=== PATIENT | male | born 1985 | race Caucasian/White ===

== ENCOUNTER → 2020-07-12 09:47 | Outpatient (BNVA) | payer OTHER, SELFPAY | PROVIDERS: PCP Nurse Practitioner Family; Referring Provider Nurse Practitioner Family; Visit Provider Dietitian, Registered | DX: Z76.89 Persons encountering health services in other specified circumstances (principal) ==

== ENCOUNTER → 2020-07-20 09:12 | Outpatient (BNVA) | payer OTHER, SELFPAY | PROVIDERS: PCP Nurse Practitioner Family; Visit Provider Nurse Practitioner Gerontology | DX: E11.65 Type 2 diabetes mellitus with hyperglycemia (principal); E11.29 Type 2 diabetes mellitus with other diabetic kidney complication; Z79.4 Long term (current) use of insulin; R80.9 Proteinuria, unspecified; E78.5 Hyperlipidemia, unspecified; E66.09 Other obesity due to excess calories; Z68.31 Body mass index [BMI] 31.0-31.9, adult | CPT/HCPCS: 99212 ==

== ENCOUNTER 2020-08-06 09:56 | Emergency (ER) | payer OTHER, SELFPAY ==
[2020-08-06 10:18] VITALS: BP 143/89; PULSE 89; RESP 18; TEMP 36.8; O2SAT 98; BMI 33.7
--- NOTE | 2020-08-06 10:43 | XR_ITS ---
EXAMINATION: XR SOFT TISSUE NECK CLINICAL INDICATION: Sensation of foreign body in throat infiltrate or chest. COMPARISON: None TECHNIQUE: 2 views of the soft tissue neck were obtained. FINDINGS: Soft tissue fullness is seen in the soft palate with narrowing of the oral canal at that level. The nasopharynx is patent. The prevertebral soft tissues are unremarkable. The epiglottis is unremarkable. The cervical soft tissues show no focal abnormality. The osseous structures are unremarkable. XR/XR soft tissue neck IMPRESSION: Soft tissue fullness of the soft palate with narrowing of the oral canal at that level. Correlate with physical exam. The airway is otherwise patent. No cervical soft tissue abnormality.
--- NOTE | 2020-08-06 10:43 | XR_ITS ---
EXAMINATION: XR CHEST CLINICAL INFORMATION: Sensation of foreign body in throat and bladder to chest. COMPARISON: 07/31/2008 chest radiographs. TECHNIQUE: 2 views of the chest were obtained. FINDINGS: No significant abnormality is noted involving the heart, lungs, mediastinum, bony thorax or soft tissues. XR/XR chest 2V IMPRESSION: No acute cardiopulmonary process.
[2020-08-06 10:52] LABS: MANUAL DIFF FLAG NO
[2020-08-06] MEDS: 0.9 % Sodium Chloride 1,000 ML 999 ML IVCONT (10:52)
[2020-08-06 10:55] LABS: Basophils Absolute Auto 0.1 X10*3/uL (0.0-0.2); Basophils Percent Auto 0.9 % (0-2); Eosinophils Absolute Auto 0.2 X10*3/uL (0.0-0.4); Eosinophils Percent Auto 2.7 % (0-4); Hematocrit 47.2 % (42-52); Hemoglobin 16.6 g/dl (14.0-18.0); Imm Gran Abs Auto 0.02 X10*3/uL (0.00-0.03); Imm Gran Pct Auto 0.3 % (0.0-0.4); Lymphocytes Absolute Auto 2.1 X10*3/uL (1.2-4.9); Lymphocytes Percent Auto 32.1 % (20-40); Mean Corpuscular HGB Conc 35.2 g/dl (31.0-36.0); Mean Corpuscular Volume 88.1 fL (80-98); Mean Platelet Volume 11.1 fL (9.4-12.4); Monocytes Absolute Auto 0.4 X10*3/uL (0.1-1.2); Monocytes Percent Auto 6.6 % (2-11); Neutrophils Absolute Auto 3.8 X10*3/uL (2.0-8.3); Neutrophils Percent Auto 57.4 % (45-73); Platelet Count 211 X10*3/uL (160-400); Red Blood Count 5.36 X10*6/uL (4.60-5.80); Red Cell Distribution Width 12.3 % (11.0-16.0); White Blood Count 6.7 X10*3/uL (4.8-10.8)
[2020-08-06 11:02] LABS: Prothrombin Time 11.6 SEC (10.8-13.0)
[2020-08-06 11:06] LABS: D Dimer < 200 NG/ML
[2020-08-06 11:26] LABS: Alanine Aminotransferase 56 U/L (0-40); Albumin Level 4.9 g/dL (3.5-5.0); Alkaline Phosphatase 117 U/L (39-117); Anion Gap 14 (12-20); Aspartate Amino Transferase 22 U/L (5-37); Bilirubin Direct 0.3 mg/dL (0.0-0.5); Bilirubin Total 0.9 mg/dL (0.0-1.0); Blood Urea Nitrogen 17 mg/dL (9-16); Calcium 9.1 mg/dL (8.4-10.2); Carbon Dioxide 24 mmol/L (22-29); Chloride 106 mmol/L (96-108); Creatinine Clr Calc Pharmacy 147.2; Estimated Glomerular Filt Rate > 60; Glucose Random 127 mg/dL (60-115); Magnesium 2.2 mg/dL (1.6-2.6); Sodium 140 mmol/L (135-145); Total Protein 7.9 g/dL (6.5-8.0)
[2020-08-06 11:31] LABS: Troponin-I High Sensitivity < 3.5 ng/L (<3.5-35.0)
--- NOTE | 2020-08-06 11:39 | CT_ITS ---
EXAMINATION: CT SOFT TISSUE NECK WITH CONTRAST CLINICAL INFORMATION: Foreign body sensation in throat. COMPARISON: None TECHNIQUE: Following the intravenous administration of 60 mL of Omnipaque 350 contrast, helical imaging was performed in the axial plane with generation of coronal and sagittal reformatted images. This CT examination was performed using dose optimization techniques as appropriate, variously including the following: *Automated exposure control *Adjustment of mA and/or kV according to patient size (this includes techniques or standardized protocols for targeted exams where dose is matched to indication/reason for exam; i.e. extremities or head) *Use of iterative reconstruction technique DLP: 1191 mGy-cm FINDINGS: No contour abnormality or pathologic enhancement is seen within the oral cavity or pharyngeal mucosal space. The larynx is normal. The thyroid gland is homogeneous. The airway is normally maintained. The submandibular and parotid glands appear normal bilaterally. No retropharyngeal fluid collection is seen. There is a reversal of the normal cervical lordosis with mild degenerative endplate spurring posteriorly at the C5-C6 level slightly impressing upon the ventral thecal sac. No pathologically enlarged cervical lymph nodes are seen. The carotid sheath vasculature opacifies normally. The visualized mediastinum is normal. Mild subsegmental atelectatic change is present in the lungs dependently. No maxillary or mandibular periapical disease is seen. Small retention cysts visible in the maxillary sinuses. There is a moderate leftward nasal septal deviation with nasal septal spurring distorting the left inferior turbinate and contacting the left lateral nasal wall. The mastoid air cells and middle ear cavities are aerated. The temporomandibular joints are normal. The craniovertebral junction appears normal. The imaged portions of the brain demonstrate no acute abnormality. The orbits appear normal. CT/CT soft tissue neck w con IMPRESSION: No soft tissue abnormality or adenopathy. No retropharyngeal process. Reversal of the normal cervical lordosis and mild spondylosis at C5-C6. Moderate leftward nasal septal deviation and nasal septal spurring contacting the left lateral nasal wall and distorting the left inferior turbinate.
--- NOTE | 2020-08-06 12:03 | ED_ITS ---
HPI - General Adult General Chief complaint: General Medical Stated complaint: ? FB IN THROAT Time Seen by Provider: 08/06/20 10:16 Source: patient Mode of arrival: ambulatory Limitations: no limitations History of Present Illness HPI narrative: 35yoM c PMHx of DM, HLD, GERD and lumbar disc disease presenting to the ED c c/o foreign body sensation in his throat since yesterday 09:00 or he describes it as a ?spasm?. Reports he feels it in his chest therefore is not sure if it is chest pain. 35yoM c PMHx of DM, HLD, GERD and lumbar disc disease presenting to the ED c c/o foreign body sensation in his throat since yesterday 09:00 or he describes it as a ?spasm?. Reports he feels it in his chest therefore is not sure if it is chest pain. Denies any other symptoms related to this. Reports he did not eat anything and this did not happen after he ate anything. Denies any fevers, nausea/vomiting, trouble swallowing or breathing, drooling, shortness of breath, paresthesias, abdominal pain, diarrhea or cons tipation or any other symptoms complaints or concerns at this time. Related Data Home Medications Medication Instructions Recorded Confirmed atorvastatin 40 mg tablet 40 mg PO DAILY 07/20/20 07/20/20 blood sugar diagnostic #10 ea 07/20/20 07/20/20 blood-glucose meter #1 ea 07/20/20 07/20/20 empagliflozin 25 mg tablet 25 mg PO DAILY 07/20/20 07/20/20 lancets 28 gauge #100 ea 07/20/20 07/20/20 lisinopril 2.5 mg tablet 2.5 mg PO DAILY 07/20/20 07/20/20 omeprazole 40 mg capsule,delayed 40 mg PO DAILY 07/20/20 07/20/20 release Previous Rx's Medication Instructions Recorded insulin glargine 100 unit/mL (3 26 unit SUBCUT DAILY #15 ml 07/20/20 mL) subcutaneous pen Allergies Allergy/AdvReac Type Severity Reaction Status Date / Time Sulfa (Sulfonamide Allergy Unknown HIVES Verified 07/20/20 09:22 Antibiotics) [SULFA (SULFONAMIDE ANTIBIOTICS)] Review of Systems Review of Systems: Constitutional : No Fever, No Chills, Fatigue, No Malaise ENT/Mouth : No Hearing loss, No Ear Pain, No Nasal Congestion, No Sinus Pain, No Hoarseness, No sore throat, No Rhinorrhea, No Swallowing Difficulty, + Discomfort with swallowing Eyes: No Eye Pain, No Swelling, No Redness, No Foreign Body, No Discharge, No Vision Changes Cardiovascular : ? CP, No SOB, no Dyspnea on Exertion, No Orthopnea, No Edema, No extremity swelling, No Palpitations Respiratory : No Cough, No Sputum, No Wheezing, No Dyspnea Gastrointestinal : No Nausea, No Vomiting, No Diarrhea, No abdominal Pain Genitourinary : No Dysuria Musculoskeletal : No joint pain Skin : No Skin Lesions, No rash Neuro : No Weakness, No Numbness, No Paresthesias, No Loss of Consciousness, No Dizziness, No Headache Heme/Lymph: No Lymphadenopathy Yes all other systems are reviewed and are negative [facility] Past Medical History Attestation statement: The following information was validated with the patient. Medical History GERD (gastroesophageal reflux disease) Hyperlipidemia LDL goal <100 Lumbar disc disease Obesity due to excess calories Proteinuria Type 2 diabetes mellitus with other diabetic kidney complication Surgical History No pertinent past surgical history Family History Family History Father CVD (cardiovascular disease) Diabetes mellitus Mother No problems noted. Sister No problems noted. Sister No problems noted. Son No problems noted. Daughter No problems noted. Daughter No problems noted. Social History Social History Household Members: Children Smoking Status: Former smoker Smoked in Last 30 Days: No Use of substances other than those prescribed or required for medical reasons: No Advance Directives: No Advance Directives Information Provided: No Physical Exam Vital Signs: Vital Signs: Last Vital Signs Temp 97.2 F 08/06/20 14:00 Pulse 80 08/06/20 14:00 Resp 16 08/06/20 14:00 BP 132/89 08/06/20 14:00 Pulse Ox 96 08/06/20 14:00 Body Mass Index 33.7 vital signs have been reviewed as normal and appeared to be correct. Blood pressure normal. Heart rate normal. Respiration rate normal. Temperature normal. Oxygen saturation normal. Appearance: Alert. Oriented X3. No acute distress. Head: Normal external exam. Normocephalic. Atraumatic. No Balderas signs noted. No raccoon eyes noted Eyes: PERRLA. EOMI. Conjunctiva and sclera normal. Eyelids normal. ENT: Pharynx normal. Uvula midline. Moist mucous membranes. Normal soft palate and hard palate. No trismus noted. No drooling noted. No muffled voice noted. No foreign bodies noted. Neck: Normal inspection. Neck supple. FROM. No adenopathy. Thyroid Normal. No meningeal signs. No neck mass noted. CVS: Normal heart rate and rhythm. Heart sound normal. No murmurs noted. Pulses normal throughout. Respiratory: No respiratory distress. Painless inspiration. Breath sounds normal. No wheezes/rales/rhonchi noted. Chest nontender. No accessory muscle usage noted or decreased air movement noted. Back: Full range of motion noted. Skin: Skin warm and dry. Normal skin color. Normal skin turgor. No rashes/lesions/lacerations noted. Extremities: Extremities exhibit normal range of motion. Extremities nontender. Neuro: Oriented X 3. No motor deficit. No sensory deficit. Reflexes normal. Course Course Course Narrative: 10:45am - 35yoM c PMHx of DM, HLD, GERD and lumbar disc disease presenting to the ED c c/o foreign body sensation in his throat since yesterday 09:00 or he describes it as a ?spasm?. Reports he feels it in his chest therefore is not sure if it is chest pain. - Concern for KS vs FB in throat - Plan: Labs, CXR, EKG, Soft tissue neck, ua. Provide IV fluids and re-ev aluate. Reevaluation(s) Reevaluation #1: All labs within normal limits including troponin and D-dimer. Chest x-ray within normal limits no acute processes noted. EKG normal sinus rhythm with PVCs no acute ischemic changes noted. Soft tissue neck x-ray revealed fullness of the soft plaque with narrowing of the oral canal at that level although on exam it does not appear this way therefore will obtain a CT scan of the neck soft tissue with IV contrast and re-evaluate. Time: 12:19 Reevaluation #2: CT scan of neck with IV contrast revealed IMPRESSION: No soft tissue abnormality or adenopathy. No retropharyngeal process. Reversal of the normal cervical lordosis and mild spondylosis at C5-C6. Moderate leftward nasal septal deviation and nasal septal spurring contacting the left lateral nasal wall and distorting the left inferior turbinate. - therefore will DC home at this time with referral to ENT and GI and instructions to return if any new or worsening symptoms. Patient understands agrees the plan. Time: 15:19 Medical Decision Making Lab Data Result diagrams: 08/06/20 10:46 08/06/20 10:46 Labs: Lab Results 08/06/20 08/06/20 08/06/20 Range/Units 10:46 10:46 10:46 WBC 6.7 (4.8-10.8) X10*3/uL RBC 5.36 (4.60-5.80) X10*6/uL Hgb 16.6 (14.0-18.0) g/dl Hct 47.2 (42-52) % MCV 88.1 (80-98) fL MCH 31.0 (27.0-33.0) pg MCHC 35.2 (31.0-36.0) g/dl RDW 12.3 (11.0-16.0) % Plt Count 211 (160-400) X10*3/uL MPV 11.1 (9.4-12.4) fL Immature Gran % (Auto) 0.3 (0.0-0.4) % Neut % (Auto) 57.4 (45-73) % Lymph % (Auto) 32.1 (20-40) % Wright % (Auto) 6.6 (2-11) % Eos % (Auto) 2.7 (0-4) % Baso % (Auto) 0.9 (0-2) % Lymph # (Auto) 2.1 (1.2-4.9) X10*3/uL Wright # (Auto) 0.4 (0.1-1.2) X10*3/uL Eos # (Auto) 0.2 (0.0-0.4) X10*3/uL Baso # (Auto) 0.1 (0.0-0.2) X10*3/uL Abs Immat Gran (auto) 0.02 (0.00-0.03) X10*3/uL Absolute Neuts (auto) 3.8 (2.0-8.3) X10*3/uL Absolute Nucleated RBC 0.000 (0.0-0.012) X10*3/uL Nucleated RBC % (auto) 0.0 (0.0-0.2) /100WBC PT 11.6 (10.8-13.0) SEC INR 1.0 (0.9-1.1) D-Dimer < 200 NG/ML Sodium 140 (135-145) mmol/L Potassium 4.0 (3.3-5.1) mmol/l Chloride 106 (96-108) mmol/L Carbon Dioxide 24 (22-29) mmol/L Anion Gap 14 (12-20) BUN 17 H (9-16) mg/dL Creatinine 0.79 (0.5-1.4) mg/dL Estim Creat Clear Calc 147.2 Estimated GFR > 60 Random Glucose 127 H (60-115) mg/dL Calcium 9.1 (8.4-10.2) mg/dL Magnesium 2.2 (1.6-2.6) mg/dL Total Bilirubin 0.9 (0.0-1.0) mg/dL Direct Bilirubin 0.3 (0.0-0.5) mg/dL AST 22 (5-37) U/L ALT 56 H (0-40) U/L Alkaline Phosphatase 117 (39-117) U/L Troponin I High Sens (<3.5-35.0) ng/L Total Protein 7.9 (6.5-8.0) g/dL Albumin 4.9 (3.5-5.0) g/dL Urine Color Urine Appearance Urine pH (5.0-8.0) Ur Specific [place] (1.005-1.025) Urine Protein (NEG-TRACE) MG/DL Urine Glucose (UA) (NEG) MG/DL Urine Ketones (NEG) MG/DL Urine Blood (NEG) Urine Nitrite (NEG) Ur Leukocyte Esterase (NEG) 08/06/20 08/06/20 Range/Units 10:46 15:03 WBC (4.8-10.8) X10*3/uL RBC (4.60-5.80) X10*6/uL Hgb (14.0-18.0) g/dl Hct (42-52) % MCV (80-98) fL MCH (27.0-33.0) pg MCHC (31.0-36.0) g/dl RDW (11.0-16.0) % Plt Count (160-400) X10*3/uL MPV (9.4-12.4) fL Immature Gran % (Auto) (0.0-0.4) % Neut % (Auto) (45-73) % Lymph % (Auto) (20-40) % Wright % (Auto) (2-11) % Eos % (Auto) (0-4) % Baso % (Auto) (0-2) % Lymph # (Auto) (1.2-4.9) X10*3/uL Wright # (Auto) (0.1-1.2) X10*3/uL Eos # (Auto) (0.0-0.4) X10*3/uL Baso # (Auto) (0.0-0.2) X10*3/uL Abs Immat Gran (auto) (0.00-0.03) X10*3/uL Absolute Neuts (auto) (2.0-8.3) X10*3/uL Absolute Nucleated RBC (0.0-0.012) X10*3/uL Nucleated RBC % (auto) (0.0-0.2) /100WBC PT (10.8-13.0) SEC INR (0.9-1.1) D-Dimer NG/ML Sodium (135-145) mmol/L Potassium (3.3-5.1) mmol/l Chloride (96-108) mmol/L Carbon Dioxide (22-29) mmol/L Anion Gap (12-20) BUN (9-16) mg/dL Creatinine (0.5-1.4) mg/dL Estim Creat Clear Calc Estimated GFR Random Glucose (60-115) mg/dL Calcium (8.4-10.2) mg/dL Magnesium (1.6-2.6) mg/dL Total Bilirubin (0.0-1.0) mg/dL Direct Bilirubin (0.0-0.5) mg/dL AST (5-37) U/L ALT (0-40) U/L Alkaline Phosphatase (39-117) U/L Troponin I High Sens < 3.5 (<3.5-35.0) ng/L Total Protein (6.5-8.0) g/dL Albumin (3.5-5.0) g/dL Urine Color YELLOW Urine Appearance CLEAR Urine pH 5.5 (5.0-8.0) Ur Specific [place] 1.010 (1.005-1.025) Urine Protein NEG (NEG-TRACE) MG/DL Urine Glucose (UA) >=1000 H (NEG) MG/DL Urine Ketones 15 (NEG) MG/DL Urine Blood NEG (NEG) Urine Nitrite NEG (NEG) Ur Leukocyte Esterase NEG (NEG) Imaging Data Chest x-ray: Attestation: I personally reviewed and interpreted this imaging study as follows: Radiologist's impression: IMPRESSION: No acute cardiopulmonary process. Soft tissue neck x-ray: Attestation: I personally reviewed and interpreted this imaging study as follows: Radiologist's impression: IMPRESSION: Soft tissue fullness of the soft palate with narrowing of the oral canal at that level. Correlate with physical exam. The airway is otherwise patent. No cervical soft tissue abnormality. Ct soft tissue neck : Attestation: I personally reviewed and interpreted this imaging study as follows: Radiologist's impression: IMPRESSION: No soft tissue abnormality or adenopathy. No retropharyngeal process. Reversal of the normal cervical lordosis and mild spondylosis at C5-C6. Moderate leftward nasal septal deviation and nasal septal spurring contacting the left lateral nasal wall and distorting the left inferior turbinate. ECG Data Attestation: I personally reviewed and interpreted this ECG as follows: Interpretation: Sinus rhythm with occasional PVCs with a normal SD interval normal QRS duration normal QT/QTC interval. No acute ischemic changes noted. No prior EKGs in system to compare at this time. Discharge Plan Discharge Clinical Impression: GERD (gastroesophageal reflux disease) Patient Disposition: Home, Self-Care Instructions: Gastroesophageal Reflux Disease (ED), Esophageal Spasm (ED) Prescriptions: No Action (DME) FreeStyle Lite Strips Strip See Rx Instructions strip .ROUTE .MEDSUPPLY Qty: 10 RF: 0 Jardiance 25 mg tablet 25 mg PO DAILY RF: 0 lisinopril 2.5 mg tablet 2.5 mg PO DAILY RF: 0 omeprazole 40 mg capsule,delayed release(DR/EC) 40 mg PO DAILY RF: 0 atorvastatin 40 mg tablet 40 mg PO DAILY RF: 0 (DME) blood-glucose meter Kit See Rx Instructions ea .ROUTE .MEDSUPPLY Qty: 1 RF: 0 (DME) lancets 28 gauge misc See Rx Instructions lancet topical TID Qty: 100 RF: 0 insulin glargine 100 unit/mL (3 mL) insulin pen 26 unit subcut DAILY Qty: 15 RF: 1 Referrals: Kee German, EKG MANAGER-BC [Primary Care Provider] - 2 days Luis Porras [Physician] - 2 days Venkat Velasco [Physician] - 2 days Stand Alone Forms: Work/School Release Print Language: Ukrainian
[2020-08-06 12:51] VITALS: BP 136/73; PULSE 82; RESP 16; O2SAT 96
--- NOTE | 2020-08-06 12:52 | PC.NURSE ---
pt able to drink OJ with no diff. swallowing. waiting CT scan.
[2020-08-06 14:00] VITALS: BP 132/89; PULSE 80; RESP 16; TEMP 36.2; O2SAT 96
[2020-08-06] MEDS: iohexoL 350 MG/ML 100 ML INFUS..BTL 60 ML IV (14:27)
[2020-08-06 15:15] LABS: Glucose Urine UA >=1000 MG/DL (NEG); Leukocyte Esterase Urine NEG (NEG); Nitrite Urine NEG (NEG); PH 5.5 (5.0-8.0); Urine Blood NEG (NEG); Urine Ketones 15 MG/DL (NEG); Urine Protein NEG (NEG-TRACE)
[2020-08-06 15:16] LABS: Color Urine YELLOW
[2020-08-06 15:17] LABS: Appearance Urine CLEAR
[2020-08-06 15:26] LABS: RBC Urine 0 /HPF (0); Squamous Epithelial Cell Urine TRACE /LPF; WBC Urine 0-2 /HPF (0-4)
== END 2020-08-06 15:27 | disposition home or self-care (01) ==
PROVIDERS: Physician Assistant Medical; Emergency Provider Emergency Medicine Emergency Medical Services; PCP Nurse Practitioner Family
DX: K21.9 Gastro-esophageal reflux disease without esophagitis (principal); R13.10 Dysphagia, unspecified; R09.89 Other specified symptoms and signs involving the circulatory and respiratory systems; E11.9 Type 2 diabetes mellitus without complications; Z87.891 Personal history of nicotine dependence; Z79.899 Other long term (current) drug therapy
CPT/HCPCS: 36415; 70360; 70491; 71046; 80048; 80076; 81001; 83735; 84484; 85025; 85379; 85610; 96360; 99284; Q9967

== ENCOUNTER → 2020-08-25 12:05 | Outpatient (BNVA) | payer OTHER, SELFPAY | PROVIDERS: PCP Nurse Practitioner Family; Visit Provider Dietitian, Registered | DX: Z76.89 Persons encountering health services in other specified circumstances (principal) ==

== ENCOUNTER 2020-09-01 09:48 | Outpatient (REF) | payer OTHER, SELFPAY ==
[2020-09-01 11:39] LABS: Estimated Average Glucose 189 mg/dL; Hemoglobin A1c % 8.2 %
== END 2020-09-01 09:49 | disposition home or self-care (01) ==
LOC: HO.HMGCLDS 09:48
PROVIDERS: PCP Nurse Practitioner Family; Visit Provider Nurse Practitioner Gerontology
DX: E11.65 Type 2 diabetes mellitus with hyperglycemia (principal)
CPT/HCPCS: 83036

== ENCOUNTER → 2020-10-20 08:14 | Outpatient (BNVA) | payer OTHER, SELFPAY | PROVIDERS: PCP Nurse Practitioner Family; Visit Provider Nurse Practitioner Gerontology ==

== ENCOUNTER → 2020-10-26 12:01 | Outpatient (BNVA) | payer OTHER, SELFPAY | PROVIDERS: PCP Nurse Practitioner Family; Visit Provider Dietitian, Registered ==

== ENCOUNTER → 2021-01-24 10:48 | Outpatient (BNVA) | payer OTHER, SELFPAY | PROVIDERS: PCP Nurse Practitioner Family; Visit Provider Dietitian, Registered | DX: E11.65 Type 2 diabetes mellitus with hyperglycemia (principal); Z79.4 Long term (current) use of insulin | CPT/HCPCS: 97803 ==

== ENCOUNTER → 2021-03-03 09:09 | Outpatient (BNVA) | payer OTHER, SELFPAY | PROVIDERS: PCP Nurse Practitioner Family; Visit Provider Nurse Practitioner Gerontology ==

== ENCOUNTER 2021-03-05 10:17 | Outpatient (REF) | payer OTHER, SELFPAY ==
[2021-03-05 11:50] LABS: Alanine Aminotransferase 37 U/L (0-40); Albumin Level 4.9 g/dL (3.5-5.0); Alkaline Phosphatase 133 U/L (39-117); Anion Gap 13 (12-20); Aspartate Amino Transferase 21 U/L (5-37); Bilirubin Total 0.7 mg/dL (0.0-1.0); Blood Urea Nitrogen 13 mg/dL (9-16); Calcium 9.8 mg/dL (8.4-10.2); Carbon Dioxide 27 mmol/L (22-29); Chloride 106 mmol/L (96-108); Cholesterol 126 mg/dL; Estimated Glomerular Filt Rate > 60; Glucose Fasting 173 mg/dL (60-99); HDL Cholesterol 29 mg/dL; LDL Cholesterol Calculated 79 mg/dl; Potassium 4.7 mmol/L (3.3-5.1); Sodium 141 mmol/L (135-145); Triglycerides 92 mg/dL
[2021-03-05 11:51] LABS: Creatinine Urine 56.53 mg/dL; Microalbum/Creatinine Ratio Ur 56.6 ug/mg cr
[2021-03-05 12:21] LABS: Estimated Average Glucose 192 mg/dL; Hemoglobin A1c % 8.3 %
[2021-03-06 06:37] LABS: LDL Cholesterol Direct 75 mg/dL (<100)
== END 2021-03-05 10:18 | disposition home or self-care (01) ==
LOC: HO.LAB 10:17
PROVIDERS: PCP Nurse Practitioner Family; Visit Provider Nurse Practitioner Gerontology
DX: E11.65 Type 2 diabetes mellitus with hyperglycemia (principal); Z79.4 Long term (current) use of insulin
CPT/HCPCS: 36415; 80053; 80061; 82043; 83036; 83721

== ENCOUNTER → 2021-05-23 09:02 | Outpatient (BNVA) | payer OTHER, SELFPAY | PROVIDERS: Visit Provider Nurse Practitioner Gerontology ==

== ENCOUNTER 2021-06-17 08:37 | Outpatient (REF) | payer OTHER, SELFPAY ==
[2021-06-17 10:11] LABS: Estimated Average Glucose 157 mg/dL; Hemoglobin A1c % 7.1 %
[2021-06-22 15:17] LABS: Alk.Phos Iso. Macrohepatic 0 % (<=0); Alk.Phos Isoenzymes Bone 28 % (28-66); Alk.Phos Isoenzymes Intest 12 % (1-24); Alk.Phos Isoenzymes Liver 61 % (25-69); Alk.Phos Isoenzymes Placental 0 % (<=0); Alk.Phos Isoenzymes Total 104 U/L (36-130)
== END 2021-06-17 08:38 | disposition home or self-care (01) ==
LOC: HO.LAB 08:37
PROVIDERS: PCP Nurse Practitioner Family; Visit Provider Nurse Practitioner Gerontology
DX: E11.65 Type 2 diabetes mellitus with hyperglycemia (principal); R74.8 Abnormal levels of other serum enzymes; Z79.4 Long term (current) use of insulin
CPT/HCPCS: 36415; 83036; 84080

== ENCOUNTER → 2021-07-07 08:59 | Outpatient (BNVA) | payer OTHER, SELFPAY | PROVIDERS: PCP Nurse Practitioner Family; Visit Provider Internal Medicine | DX: G47.33 Obstructive sleep apnea (adult) (pediatric) (principal); E66.09 Other obesity due to excess calories; Z68.31 Body mass index [BMI] 31.0-31.9, adult | CPT/HCPCS: 99202 ==

== ENCOUNTER → 2021-08-03 15:50 | Outpatient (REF) | payer OTHER, SELFPAY | LOC: HO.SL 15:50 | PROVIDERS: PCP Nurse Practitioner Family; Visit Provider Internal Medicine | DX: G47.33 Obstructive sleep apnea (adult) (pediatric) (principal); E66.09 Other obesity due to excess calories; Z68.31 Body mass index [BMI] 31.0-31.9, adult | CPT/HCPCS: 95806 ==

== ENCOUNTER → 2021-08-22 14:53 | Outpatient (BNVA) | payer OTHER, SELFPAY | PROVIDERS: PCP Nurse Practitioner Family; Visit Provider Internal Medicine | DX: G47.33 Obstructive sleep apnea (adult) (pediatric) (principal) | CPT/HCPCS: 99212 ==

== ENCOUNTER → 2021-09-26 10:57 | Outpatient (BNVA) | payer OTHER, SELFPAY | PROVIDERS: PCP Nurse Practitioner Family; Visit Provider Nurse Practitioner Gerontology | DX: E11.65 Type 2 diabetes mellitus with hyperglycemia (principal); E11.29 Type 2 diabetes mellitus with other diabetic kidney complication; E78.5 Hyperlipidemia, unspecified; E66.09 Other obesity due to excess calories; R80.9 Proteinuria, unspecified; Z79.4 Long term (current) use of insulin; Z68.31 Body mass index [BMI] 31.0-31.9, adult | CPT/HCPCS: 82947; 83036; 99212 ==

== ENCOUNTER 2022-12-11 08:06 | Outpatient (REF) | payer OTHER, SELFPAY ==
--- NOTE | ~2022-12-11 | XR_ITS ---
EXAMINATION: XR HUMERUS, RIGHT CLINICAL INFORMATION: Unspecified fracture humeral shaft COMPARISON: None available. TECHNIQUE: AP and lateral views of the right humerus. FINDINGS: No acute fracture or malalignment is seen of the humerus. No suspicious bony lesions seen. Articulation at the elbow and shoulder joint appears maintained. No abnormal soft tissue calcification. XR/XR humerus RT IMPRESSION: No radiographic evidence of acute fracture or dislocation.
== END 2022-12-11 08:07 | disposition home or self-care (01) ==
LOC: HO.HOSX 08:06
PROVIDERS: Visit Provider Physician Assistant
DX: S42.301A Unspecified fracture of shaft of humerus, right arm, initial encounter for closed fracture (principal); M77.11 Lateral epicondylitis, right elbow; G56.21 Lesion of ulnar nerve, right upper limb
CPT/HCPCS: 20550; 20610; 73060; 99202; J1100

== ENCOUNTER 2022-12-29 14:40 | Outpatient (RCR) | payer OTHER, SELFPAY ==
--- NOTE | 2022-12-29 16:18 | MHC.OT.DC ---
[address] [phone] F: [phone] Occupational Therapy Discharge Note Patient Name: Alexis Gutierrezatt Provider: Mery Mi Diagnosis: Right elbow lateral epicondylitis Right elbow cubital tunnel syndrom Date of Surgery: Date of Evaluation: 12/29/22 Date of Discharge: 12/29/22 Treatments to Date: 1 Cancellations to Date: No Shows to Date: Discharge Status: Improved Function Independent with HEP Discharge Summary: Pt is a 37 yo male s/p right elbow injury with a slight fracture resulting in elbow pain and ulnar nerve symptoms. Pain has improved significantly to a 3/10 at worst with avoiding heavy use and hand paresthesia now resolved. 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 Pt has a scheduled appointment with his PCP in February. Skilled OT not recommended at this time. Electronically Signed By: Liana Treadwell OT CHT CLT Reviewed/agree with student documentation: Therapist: Please Sign and return to therapist, thank you for your referral.
== END 2022-12-29 16:18 | disposition home or self-care (01) ==
LOC: HO.OT 14:40
PROVIDERS: PCP Nurse Practitioner Family; Visit Provider Physician Assistant
DX: M17.12 Unilateral primary osteoarthritis, left knee (principal); G56.21 Lesion of ulnar nerve, right upper limb
CPT/HCPCS: 97110; 97165

== ENCOUNTER 2023-03-08 09:16 | Outpatient (REF) | payer OTHER, SELFPAY ==
[2023-03-08 11:14] LABS: MANUAL DIFF FLAG NO
[2023-03-08 11:16] LABS: Basophils Absolute Auto 0.1 X10*3/uL (0.0-0.2); Basophils Percent Auto 1.2 % (0-2); Eosinophils Absolute Auto 0.3 X10*3/uL (0.0-0.4); Eosinophils Percent Auto 3.6 % (0-4); Hematocrit 48.9 % (42.0-52.0); Hemoglobin 16.3 g/dl (14.0-18.0); Imm Gran Abs Auto 0.03 X10*3/uL (0.00-0.03); Imm Gran Pct Auto 0.4 % (0.0-0.4); Lymphocytes Absolute Auto 2.6 X10*3/uL (1.2-4.9); Lymphocytes Percent Auto 35.6 % (20-40); Mean Corpuscular HGB Conc 33.3 g/dl (31.0-36.0); Mean Corpuscular Hemoglobin 29.6 pg (27.0-33.0); Mean Corpuscular Volume 88.9 fL (80.0-98.0); Mean Platelet Volume 11.4 fL (9.4-12.4); Monocytes Absolute Auto 0.6 X10*3/uL (0.1-1.2); Neutrophils Absolute Auto 3.8 x10*3/uL (2.0-8.3); Neutrophils Percent Auto 51.2 % (45-73); Platelet Count 245 X10*3/uL (160-400); Red Cell Distribution Width 12.2 % (11.0-16.0); White Blood Count 7.4 X10*3/uL (4.8-10.8)
[2023-03-08 11:19] LABS: Appearance Urine Clear; Color Urine Yellow; Glucose Urine UA >=1000 mg/dL (Negative); Leukocyte Esterase Urine Negative (Negative); Nitrite Urine Negative (Negative); PH 5.5 (5.0-9.0); Specific Gravity - Urine >= 1.030 (1.005-1.025); UMIC TRIGGER UACC YES; Urine Blood Negative (Negative); Urine Ketones Negative (Negative); Urine Protein Negative (Neg-Trace)
[2023-03-08 11:22] LABS: Bacteria Urine None Seen (None Seen); Hyaline Casts Urine 0-2 /LPF (0-2); RBC Urine 0-2 /HPF (0-2); Squamous Epithelial Cell Urine 0-2 /HPF (0-2); WBC Urine 0-5 /HPF (0-5)
[2023-03-08 11:33] LABS: Alanine Aminotransferase 35 U/L (0-40); Albumin Level 4.8 g/dL (3.5-5.0); Alkaline Phosphatase 123 U/L (39-117); Anion Gap 12 (12-20); Aspartate Amino Transferase 16 U/L (5-37); Bilirubin Total 1.2 mg/dL (0.0-1.0); Blood Urea Nitrogen 14 mg/dL (9-16); Calcium 10.4 mg/dL (8.4-10.2); Carbon Dioxide 28 mmol/L (22-29); Chloride 105 mmol/L (96-108); Cholesterol 164 mg/dL; Estimated Glomerular Filt Rate > 60; Glucose Fasting 173 mg/dL (60-99); HDL Cholesterol 32 mg/dL; LDL Cholesterol Calculated 102 mg/dl; Potassium 4.2 mmol/L (3.3-5.1); Sodium 141 mmol/L (135-145); Total Protein 8.4 g/dL (6.5-8.0); Triglycerides 151 mg/dL
[2023-03-08 11:52] LABS: TSH reflex Free T4 1.08 uIU/mL (0.32-4.0)
[2023-03-08 12:06] LABS: Creatinine Urine 52.92 mg/dL; Microalbum/Creatinine Ratio Ur 115.2 ug/mg cr
== END 2023-03-08 09:17 | disposition home or self-care (01) ==
LOC: HO.HMGCLDS 09:16
PROVIDERS: PCP Nurse Practitioner Family; Visit Provider Nurse Practitioner Family
DX: E11.65 Type 2 diabetes mellitus with hyperglycemia (principal)
CPT/HCPCS: 36415; 80053; 80061; 81001; 82043; 84443; 85025

== ENCOUNTER 2023-04-16 12:41 | Outpatient (REF) | payer OTHER, SELFPAY ==
[2023-04-16 16:42] LABS: Appearance Urine Clear; Color Urine Yellow; Glucose Urine UA >=1000 mg/dL (Negative); Leukocyte Esterase Urine Negative (Negative); Nitrite Urine Negative (Negative); PH 5.5 (5.0-9.0); Specific Gravity - Urine >= 1.030 (1.005-1.025); UMIC TRIGGER UACC YES; Urine Blood Negative (Negative); Urine Ketones Negative (Negative); Urine Protein Negative (Neg-Trace)
[2023-04-16 16:48] LABS: Bacteria Urine None Seen (None Seen); Hyaline Casts Urine 0-2 /LPF (0-2); RBC Urine 0-2 /HPF (0-2); Squamous Epithelial Cell Urine 0-2 /HPF (0-2); WBC Urine 0-5 /HPF (0-5)
[2023-04-16 17:09] LABS: Gamma Glutamyl Transpeptidase 37 U/L (11-51)
[2023-04-16 17:25] LABS: Vitamin D 25-OH Total 51.2 ng/mL (>30)
[2023-04-18 13:48] LABS: Calcium (PTHI) 9.8 mg/dL (8.6-10.3); PTHI 66 pg/mL (16-77)
[2023-04-19 15:54] LABS: Calcium, Ionized 5.1 mg/dL (4.7-5.5)
[2023-04-24 22:48] LABS: Alk.Phos Iso. Macrohepatic 0 % (<=0); Alk.Phos Isoenzymes Bone 23 % (28-66); Alk.Phos Isoenzymes Intest 9 % (1-24); Alk.Phos Isoenzymes Liver 67 % (25-69); Alk.Phos Isoenzymes Placental 0 % (<=0); Alk.Phos Isoenzymes Total 108 U/L (36-130)
== END 2023-04-16 12:42 | disposition home or self-care (01) ==
LOC: HO.HMGCLDS 12:41
PROVIDERS: PCP Nurse Practitioner Family; Visit Provider Nurse Practitioner Family
DX: R74.8 Abnormal levels of other serum enzymes (principal); E83.52 Hypercalcemia; E11.65 Type 2 diabetes mellitus with hyperglycemia
CPT/HCPCS: 36415; 81001; 82306; 82330; 82977; 83970; 84080

== ENCOUNTER 2023-07-02 12:45 | Outpatient (AMB) | payer OTHER, SELFPAY ==
--- NOTE | 2023-07-02 12:55 | A.OFFPC_ITS ---
Vital Signs 07/02/23 12:59 07/02/23 13:44 Height 5 ft 8 in Weight 247 lb BMI 37.6 BP 140/88 H 120/88 Blood Pressure Location Rt brachial Rt brachial Position Sitting Sitting Pulse 102 H Pulse Source Pulse Oximeter Pulse Oximetry (%) 96 Oxygen Delivery Method Room Air Intake Visit Reasons: 4 month follow up Allergies Sulfa (Sulfonamide Antibiotics) [SULFA (SULFONAMIDE ANTIBIOTICS)] Allergy (Unknown, Verified 07/02/23 12:59) HIVES Medication List - Last Reconciled 07/02/23 by LEONILA Herrera atorvastatin 40 mg PO DAILY blood sugar diagnostic TID testing, FREESTYLE LITE STRIPS blood-glucose meter (FreeStyle Lite Meter kit) As directed 3 x/day blood-glucose meter As directed empagliflozin (Jardiance) 25 mg PO DAILY insulin glargine (Lantus Solostar U-100 Insulin) 48 units (0.48 mL) subcut DAILY lancets As directed lisinopril 10 mg PO DAILY 90 days metformin 500 mg PO BID omeprazole 40 mg PO DAILY semaglutide (Ozempic) 0.25 mg (0.368 mL) subcut QWEEK Tobacco use date assessed: 03/08/23 HPI 4 month follow up HPI Details Pt is a diabetic, on an KASEY and a statin. A1C in office today is 8.4. Microalbumin is up to date. Denies polyuria, polydipsia, and neuropathy. Pt denies any signs and symptoms of hypoglycemia and does know how to correct it. Will increase lantus from 45 to 50 units and ozempic from 0.25mg to 0.5mg. Pt knows to work on his diet. Will give flu vaccine today, pt will have pneumonia vaccine at his next visit. [facility] Medical History Obstructive sleep apnea syndrome Elevated alkaline phosphatase level GERD (gastroesophageal reflux disease) Lumbar disc disease Proteinuria Type 2 diabetes mellitus with other diabetic kidney complication Hyperlipidemia LDL goal <100 Obesity due to excess calories Surgical History Hx of removal of cyst Family History Father CVD (cardiovascular disease) Diabetes mellitus Mother Mental health disorder Sister Substance use disorder Sister No problems noted. Son No problems noted. Daughter No problems noted. Daughter No problems noted. Social History Household Members: Children Housing: House Alcohol intake: current Alcohol intake frequency: does not drink Patient Tobacco Use Status: Former Tobacco user e-Cigarette/Vaping Use: Never Used Second Hand Smoke Exposure: No Substance Use Type: Marijuana service: No Current occupational status: employed Current occupation: [employer] Current occupational exposures/hazards: No Cognitive needs: No Hearing needs: No Vision needs: No Questionnaire Thrive Questionnaire Date Thrive assessed: 12/04/22 I am a: Patient What is your living situation today?: I have a steady place to live Within the past 12 months, did the food you bought not last and you didn't have the money to get more?: Never true Within the past 12 months, did you worry whether your food would run out before you got money to buy more?: Never true Please select the resources that you would like help with: None AUDIT C Alcohol Use Questionnaire (AUDIT-C) 1. How often do you have a drink containing alcohol?: 2-4 times a month 2. How many drinks containing alcohol do you have on a typical day when you are drinking?: 5 or 6 3. How often do you have six or more drinks on one occasion?: Monthly Total Score: 6 RAY-7 AMB Questionnaire RAY-7 Date RAY - 7 assessed: 12/04/22 Feeling nervous, anxious, or on edge: 0 = Not at all Not being able to stop or control worryin = Not at all Worrying too much about different things: 0 = Not at all Trouble relaxin = Not at all Being so restless that it is hard to sit still: 0 = Not at all Becoming easily annoyed or irritable: 0 = Not at all Feeling afraid as if something awful might happen: 0 = Not at all Total RAY-7 score (0-4 normal; 5-9 mild; 10-14 moderate; 15-21 severe): 0 Source: Developed by Drs. Venkat Hilliard, Sallie Murphy, Jarett Alvarado and colleagues, with an educational ailyn from [employer]. Review of Systems Const Reports as per HPI Physical exam (Primary Care) Vital Signs: Last Vital Signs Pulse 102 H 07/02/23 12:59 BP 120/88 07/02/23 13:44 Pulse Ox 96 07/02/23 12:59 Oxygen Delivery Method Room Air 07/02/23 12:59 BMI result Body Mass Index 37.6 Tobacco/Smoking Status: Tobacco use Status Tobacco use date assessed 03/08/23 07/02/23 13:00 Patient Tobacco Use Status Former Tobacco user 07/02/23 13:00 e-Cigarette/Vaping Use Never Used 07/02/23 13:00 Thrive Assessment: Date of Thrive Assessment Date Thrive assessed 12/04/22 07/02/23 13:00 Const General: cooperative Nutritional Appearance: obese Orientation/consciousness: patient oriented x3 Resp Effort & Inspection: normal respiratory effort Auscultation: clear to auscultation bilaterally Cardio Rate: regular rate Rhythm: regular rhythm Heart sounds: S1 normal heart sound present and S2 normal heart sound present Neuro General: patient oriented x3 Psych Appearance: grossly normal Mental Status: mental status grossly normal Speech and movement: Normal speech and movement present Affect: normal affect Attitude: cooperative Thought process: Normal thought process present Thought content: Normal thought content present Insight: Good insight present (Psych) Judgement: Good judgement present (Psych) Office Procedures Flu Questionnaire Does the patient have a severe egg allergy?: No Does the patient have severe life threatening allergies?: No Does the patient have a fever or illness today?: No Has the patient ever had Guillain-[place] Syndrome?: No Has the patient ever had any past reaction to a flu shot?: No Immunizations flu vacc [id number] 6mos up(PF) 60 mcg(15 mcgx4)/0.5 mL IM syringe Performing Provider: LEONILA Herrera [place]forming Location: [facility] [place] [facility] [place] [facility] Administered by: Nahid Odonnell CMA on 07/02/23 13:50 Dose Route Admin Location Dispensed Lot Number Expiration Date NDC Meter Repairer 0.5 mL IM Right Deltoid 0.5 mL [id number] 03/09/24 [id number] [employer] VIS Given Date VIS Provided VIS Publication Date 07/02/23 Single Vaccine 21 Eligibility Eligibility Date Funding Source Not VFC Eligible 07/02/23 Private Assessment and Plan Assessment & Plan (1) Type 2 diabetes mellitus with hyperglycemia: Code(s): E11.65 - Type 2 diabetes mellitus with hyperglycemia Qualifiers: Diabetes mellitus fdc insulin use: with fdc use Qualified Code(s): E11.65 - Type 2 diabetes mellitus with hyperglycemia; Z79.4 - MCFP (current) use of insulin (2) HTN (hypertension): Code(s): I10 - Essential (primary) hypertension Plan: pt will take at home Plan The patient agreed to the use of a medical receptionist assistant for this encounter. Scribed for JIA Finley- by iJe Linder medical receptionist assistant, on 07/02/2023 at 13:10 EST Orders: Orders AMB Hemoglobin A1c Today Z13.9 - Encounter for screening, unspecified Influenza [id number] Immunization Today Z23 - Encounter for immunization Medications: Changed From insulin glargine (Lantus Solostar U-100 Insulin) 45 units (0.45 mL) subcut DAILY 45 mL 1RF E11.65 - Type 2 diabetes mellitus with hyperglycemia To insulin glargine (Lantus Solostar U-100 Insulin) 48 units (0.48 mL) subcut DAILY 45 mL 3RF E11.65 - Type 2 diabetes mellitus with hyperglycemia From semaglutide (Ozempic) 0.25 mg (0.368 mL) subcut QWEEK 6 mL 1RF E11.29 - Type 2 diabetes mellitus with other diabetic kidney complication To semaglutide (Ozempic) 0.5 mg (0.736 mL) subcut QWEEK 6 mL 1RF E11.29 - Type 2 diabetes mellitus with other diabetic kidney complication From insulin glargine (Lantus Solostar U-100 Insulin) 48 units (0.48 mL) subcut DAILY 45 mL 3RF E11.65 - Type 2 diabetes mellitus with hyperglycemia To insulin glargine (Lantus Solostar U-100 Insulin) 50 units (0.5 mL) subcut DAILY 45 mL 3RF E11.65 - Type 2 diabetes mellitus with hyperglycemia Refilled metformin 500 mg PO BID 180 tabs 1RF E11.65 - Type 2 diabetes mellitus with hyperglycemia, 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
[2023-07-02 12:59] VITALS: BP 140/88; PULSE 102; O2SAT 96; BMI 37.6
[2023-07-02 13:44] VITALS: BP 120/88
== END 2023-07-02 14:51 | disposition home or self-care (01) ==
PROVIDERS: PCP Nurse Practitioner Family; Visit Provider Nurse Practitioner Family
DX: E11.65 Type 2 diabetes mellitus with hyperglycemia (principal); Z79.4 Long term (current) use of insulin; I10 Essential (primary) hypertension; Z23 Encounter for immunization
CPT/HCPCS: 83036; 90471; 90686; 99213

== ENCOUNTER 2023-12-05 07:25 | Outpatient (AMB) | payer OTHER, SELFPAY ==
--- NOTE | 2023-12-05 07:40 | MHC.PC.OV ---
Vital Signs 12/05/23 07:47 Height 5 ft 8 in Weight 245 lb BMI 37.2 BP 138/82 Blood Pressure Location Lt brachial Position Sitting Pulse 90 Pulse Source Pulse Oximeter Pulse Oximetry (%) 96 Oxygen Delivery Method Room Air Intake Visit Reasons: PE Intake Note: Pt is here today for his PE Allergies Sulfa (Sulfonamide Antibiotics) [SULFA (SULFONAMIDE ANTIBIOTICS)] Allergy (Unknown, Verified 12/05/23 08:12) HIVES Medication List - Last Reconciled 12/05/23 by LEONILA Herrera atorvastatin 40 mg PO DAILY blood sugar diagnostic TID testing, FREESTYLE LITE STRIPS blood-glucose meter (FreeStyle Lite Meter kit) As directed 3 x/day blood-glucose meter As directed empagliflozin (Jardiance) 25 mg PO DAILY insulin glargine (Lantus Solostar U-100 Insulin) 62 units (0.62 mL) subcut DAILY lancets As directed lisinopril 10 mg PO DAILY 90 days metformin 500 mg PO BID omeprazole 40 mg PO DAILY semaglutide 1 mg (0.75 mL) subcut QWEEK 30 days sildenafil 25 mg PO DAILY PRN Tobacco use date assessed: 12/05/23 Dental Screening Dental Screen Date: 12/05/23 Did you have a dental visit in the last 12 months?: No Was dental information given to patient?: No HPI PE HPI Details Pt is here for a PE. Will order labs. Pt is a diabetic, on an KASEY and a statin. A1C in office today is 8.0. Microalbumin is up to date. Denies polyuria, polydipsia, and neuropathy. Pt denies any signs and symptoms of hypoglycemia and does know how to correct it. Pt reports that his blood sugar has been ranging from 80s-130s for the last month. He has been taking 62 units of lantus. Pt has eczema patches to his medial and lateral dorsal feet. Will send betamethasone. He will purchase diabetic foot cream. [facility] Medical History Obstructive sleep apnea syndrome Elevated alkaline phosphatase level GERD (gastroesophageal reflux disease) Lumbar disc disease Proteinuria Type 2 diabetes mellitus with other diabetic kidney complication Hyperlipidemia LDL goal <100 Obesity due to excess calories Surgical History Hx of removal of cyst Family History Father CVD (cardiovascular disease) Diabetes mellitus Mother Mental health disorder Sister Substance use disorder Sister No problems noted. Son No problems noted. Daughter No problems noted. Daughter No problems noted. Social History Household Members: Children Housing: House Alcohol intake: current Alcohol intake frequency: does not drink Patient Tobacco Use Status: Former Tobacco user e-Cigarette/Vaping Use: Never Used Second Hand Smoke Exposure: No Substance Use Type: Marijuana service: No Current occupational status: employed Current occupation: [employer] Current occupational exposures/hazards: No Cognitive needs: No Hearing needs: No Vision needs: No Questionnaire Thrive Questionnaire Date Thrive assessed: 12/04/22 I am a: Patient What is your living situation today?: I have a steady place to live Within the past 12 months, did the food you bought not last and you didn't have the money to get more?: Never true Within the past 12 months, did you worry whether your food would run out before you got money to buy more?: Never true Please select the resources that you would like help with: None THRIVE Score: 0 AUDIT C Alcohol Use Questionnaire (AUDIT-C) 1. How often do you have a drink containing alcohol?: 2-4 times a month 2. How many drinks containing alcohol do you have on a typical day when you are drinking?: 5 or 6 3. How often do you have six or more drinks on one occasion?: Monthly Total Score: 6 RAY-7 AMB Questionnaire RAY-7 Date RAY - 7 assessed: 12/04/22 Feeling nervous, anxious, or on edge: 0 = Not at all Not being able to stop or control worryin = Not at all Worrying too much about different things: 0 = Not at all Trouble relaxin = Not at all Being so restless that it is hard to sit still: 0 = Not at all Becoming easily annoyed or irritable: 0 = Not at all Feeling afraid as if something awful might happen: 0 = Not at all Total RAY-7 score (0-4 normal; 5-9 mild; 10-14 moderate; 15-21 severe): 0 Source: Developed by Drs. Venkat Hilliard, Sallie Murphy, Jarett Alvarado and colleagues, with an educational ailyn from [employer]. Review of Systems Const Denies chills and Denies fever(s) Eyes Denies blurry vision ENT Denies vertigo, Denies dizziness and Denies sore throat Card Denies chest pain at rest, Denies chest pain with activity, Denies diaphoresis, Denies dyspnea and Denies dyspnea on exertion Resp Denies cough, Denies dyspnea, Denies dyspnea on exertion and Denies wheezing GI Denies abdominal pain, Denies melena, Denies hematochezia, Denies constipation, Denies diarrhea and Denies loose stools Denies hematuria Musc Denies numbness and Denies tingling Skin/Breast Denies lesions Neuro Denies vertigo, Denies dizziness, Denies numbness and Denies tingling Psych Denies anxiety, Denies depression, Denies homicidal ideation, Denies suicidal ideation and Denies other (substance abuse) Aller/Immun Denies wheezing Physical exam (Primary Care) Vital Signs: Last Vital Signs Pulse 90 12/05/23 07:47 BP 138/82 12/05/23 07:47 Pulse Ox 96 12/05/23 07:47 Oxygen Delivery Method Room Air 12/05/23 07:47 BMI result Body Mass Index 37.2 Tobacco/Smoking Status: Tobacco use Status Tobacco use date assessed 12/05/23 12/05/23 07:50 Patient Tobacco Use Status Former Tobacco user 12/05/23 07:41 e-Cigarette/Vaping Use Never Used 12/05/23 07:41 Thrive Assessment: Date of Thrive Assessment Date Thrive assessed 12/04/22 12/05/23 07:41 Const General: cooperative Nutritional Appearance: obese Orientation/consciousness: patient oriented x3 HENMT Head: Yes normal to inspection, Yes normocephalic and Yes atraumatic Ears: TM's normal bilaterally Eyes General: appearance normal, both eyes and all related structures Alignment and Position: alignment normal and position normal Neck Neck: Yes normal visual inspection and Yes no lymphadenopathy Thyroid: Thyroid normal Resp Effort & Inspection: normal respiratory effort Auscultation: clear to auscultation bilaterally Cardio Rate: regular rate Rhythm: regular rhythm Heart sounds: S1 normal heart sound present, S2 normal heart sound present and no murmurs GI Palpation (GI): Soft to palpation and nontender Auscultation: normal bowel sounds Skin Other: eczema patches to medial and lateral dorsal aspect of bilat feet Neuro General: patient oriented x3, moves all extremities, no focal motor deficits and deep tendon reflexes 2+ bilaterally Romberg Test: Negative Psych Appearance: grossly normal Mental Status: mental status grossly normal Speech and movement: Normal speech and movement present Affect: normal affect Attitude: cooperative Thought process: Normal thought process present Thought content: Normal thought content present Insight: Good insight present (Psych) Judgement: Good judgement present (Psych) Results AMB Hemoglobin A1c AMB Hemoglobin A1c 8.0 % Last Edit by Nahid Odonnell CMA on 12/05/23 08:23 Results Reviewed Results Reviewed: Laboratory Last Values Hgb A1c (Clinic) 8.0 % (4.0-6.0) H 12/05/23 07:39 Assessment and Plan Assessment & Plan (1) Physical exam: Code(s): Z00.00 - Encounter for general adult medical examination without abnormal findings Plan: Labs ordered (2) Type 2 diabetes mellitus with hyperglycemia: Code(s): E11.65 - Type 2 diabetes mellitus with hyperglycemia Qualifiers: 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 Scribed for LEONILA Finley by Jie Linder medical research assistant, on 12/05/2023 at 07:50 EST. Orders: Orders Complete Blood Count Auto Diff Today Z00.00 - Encounter for general adult medical examination without abnormal findings Comprehensive [place]. Panel Fast Today Z00.00 - Encounter for general adult medical examination without abnormal findings UA CC w/rflx Micro + Cult Today Z00.00 - Encounter for general adult medical examination without abnormal findings AMB Hemoglobin A1c Today E11.29 - Type 2 diabetes mellitus with other diabetic kidney complication TSH reflex Free T4 Today Z00.00 - Encounter for general adult medical examination without abnormal findings Lipid Panel Today Z00.00 - Encounter for general adult medical examination without abnormal findings Medications: New sildenafil administer 30 minutes to 4 hours before activity 25 mg PO DAILY PRN 10 tabs 0RF sexual activity betamethasone dipropionate 0.05% 1 appl topical BID 2 weeks PRN 45 grams 2RF skin irritation Changed From insulin glargine (Lantus Solostar U-100 Insulin) 58 units (0.58 mL) subcut DAILY 45 mL 3RF E11.65 - Type 2 diabetes mellitus with hyperglycemia To insulin glargine (Lantus Solostar U-100 Insulin) 62 units (0.62 mL) subcut DAILY 45 mL 3RF E11.65 - Type 2 diabetes mellitus with hyperglycemia Coding Level of Care Code Est Pt Prev Care 40-64y(58856) Diagnoses Physical exam Z00.00 Type 2 diabetes mellitus with hyperglycemia, with long-term current use of insulin E11.65; Z79.4 Diabetes mellitus exterminator termite insulin use: with exterminator termite use
[2023-12-05 07:47] VITALS: BP 138/82; PULSE 90; O2SAT 96; BMI 37.2
== END 2023-12-05 08:54 | disposition home or self-care (01) ==
PROVIDERS: Visit Provider Nurse Practitioner Family
DX: Z00.00 Encounter for general adult medical examination without abnormal findings (principal); E11.65 Type 2 diabetes mellitus with hyperglycemia; Z79.4 Long term (current) use of insulin; E11.29 Type 2 diabetes mellitus with other diabetic kidney complication
CPT/HCPCS: 83036; 99396

== ENCOUNTER 2024-02-25 12:22 | Outpatient (AMB) | payer OTHER, SELFPAY ==
--- NOTE | 2024-02-25 12:31 | MHC.PC.OV ---
Vital Signs 02/25/24 12:34 Height 5 ft 8 in Weight 245 lb 6 oz BMI 37.3 BP 122/86 Blood Pressure Location Rt brachial Position Sitting Pulse 102 H Pulse Source Pulse Oximeter Pulse Oximetry (%) 96 Oxygen Delivery Method Room Air Intake Visit Reasons: 3 month follow up/ before vacation per Kee Hayden Note: Patient here for diabetes f/u. Allergies Sulfa (Sulfonamide Antibiotics) [SULFA (SULFONAMIDE ANTIBIOTICS)] Allergy (Unknown, Verified 02/25/24 12:34) HIVES semaglutide [From Ozempic] Adverse Reaction (Mild, Verified 02/25/24 12:36) gi issues trulicty Adverse Reaction (Mild, Uncoded 02/25/24 12:36) gi issues Medication List - Last Reconciled 02/25/24 by LEONILA Herrera atorvastatin 40 mg PO DAILY betamethasone dipropionate 0.05% 1 appl topical BID PRN 2 weeks blood sugar diagnostic TID testing, FREESTYLE LITE STRIPS blood-glucose meter (FreeStyle Lite Meter kit) As directed 3 x/day blood-glucose meter As directed empagliflozin (Jardiance) 25 mg PO DAILY insulin glargine (Lantus Solostar U-100 Insulin) 62 units (0.62 mL) subcut DAILY lancets As directed lisinopril 10 mg PO DAILY 90 days metformin 500 mg PO BID omeprazole 40 mg PO DAILY sildenafil 25 mg PO DAILY PRN Tobacco use date assessed: 12/05/23 Dental Screening Dental Screen Date: 12/05/23 HPI 3 month follow up/ before vacation per Kee [facility] Details Pt is a diabetic, on an KASEY and a statin. A1C in office today is 8.0. Due for microalbumin. Denies polyuria, polydipsia, and neuropathy. Pt denies any signs and symptoms of hypoglycemia and does know how to correct it. Will increase lantus from 62 units to 65 units. Eye exam is scheduled. COUNTS INCLUDE 234 BEDS AT THE [facility] Medical History Obstructive sleep apnea syndrome Elevated alkaline phosphatase level GERD (gastroesophageal reflux disease) Lumbar disc disease Proteinuria Type 2 diabetes mellitus with other diabetic kidney complication Hyperlipidemia LDL goal <100 Obesity due to excess calories Surgical History Hx of removal of cyst Family History Father CVD (cardiovascular disease) Diabetes mellitus Mother Mental health disorder Sister Substance use disorder Sister No problems noted. Son No problems noted. Daughter No problems noted. Daughter No problems noted. Social History Household Members: Children Housing: House Alcohol intake: current Alcohol intake frequency: does not drink Patient Tobacco Use Status: Former Tobacco user e-Cigarette/Vaping Use: Never Used Second Hand Smoke Exposure: No Substance Use Type: Marijuana service: No Current occupational status: employed Current occupation: [employer] Current occupational exposures/hazards: No Cognitive needs: No Hearing needs: No Vision needs: No Questionnaire PHQ-9 Over the last 2 weeks, how often have you been bothered by any of the following problems? 1. Little interest or pleasure in doing things: not at all 2. Feeling down, depressed, or hopeless: not at all 3. Trouble falling or staying asleep, or sleeping too much: not at all 4. Feeling tired or having little energy: not at all 5. Poor appetite or overeating: not at all 6. Feeling bad about yourself - or that you are a failure or have let yourself or your family down: not at all 7. Trouble concentrating on things, such as reading the newspaper or watching television: not at all 8. Moving or speaking so slowly that other people could have noticed. Or the opposite - being so fidgety or restless that you have been moving around a lot more than usual: not at all 9. Thoughts that you would be better off or of hurting yourself in some way: not at all Total score: 0 Depression Screening Interpretation: Negative Depression Screening Done: Yes 60775 - PHQ-9 Billing: Yes Source: Developed by Drs. Venkat Hilliard, Sallie Murphy, Jarett Alvarado and colleagues, with an educational ailyn from [employer]. Thrive Questionnaire Date Thrive assessed: 12/04/22 AUDIT C Alcohol Use Questionnaire (AUDIT-C) 1. How often do you have a drink containing alcohol?: Never 3. How often do you have six or more drinks on one occasion?: Never Total Score: 0 Score Reviewed/Action Taken: No RAY-7 AMB Questionnaire RAY-7 Date RAY - 7 assessed: 12/04/22 Feeling nervous, anxious, or on edge: 0 = Not at all Not being able to stop or control worryin = Not at all Worrying too much about different things: 0 = Not at all Trouble relaxin = Not at all Being so restless that it is hard to sit still: 0 = Not at all Becoming easily annoyed or irritable: 0 = Not at all Feeling afraid as if something awful might happen: 0 = Not at all Total RAY-7 score (0-4 normal; 5-9 mild; 10-14 moderate; 15-21 severe): 0 Source: Developed by Drs. Venkat Hilliard, Sallie Murphy, Jarett Alvarado and colleagues, with an educational ailyn from [employer]. Review of Systems Const Reports as per HPI Physical exam (Primary Care) Vital Signs: Last Vital Signs Pulse 102 H 02/25/24 12:34 BP 122/86 02/25/24 12:34 Pulse Ox 96 02/25/24 12:34 Oxygen Delivery Method Room Air 02/25/24 12:34 BMI result Body Mass Index 37.3 Tobacco/Smoking Status: Tobacco use Status Tobacco use date assessed 12/05/23 02/25/24 12:33 Patient Tobacco Use Status Former Tobacco user 02/25/24 12:33 e-Cigarette/Vaping Use Never Used 02/25/24 12:33 PHQ-9: PHQ-9 Score PHQ-9: Total score 0 02/25/24 12:53 Depression Screening Interpretation: Negative Thrive Assessment: Date of Thrive Assessment Date Thrive assessed 12/04/22 02/25/24 12:33 Const General: cooperative Nutritional Appearance: obese Orientation/consciousness: patient oriented x3 Resp Effort & Inspection: normal respiratory effort Auscultation: clear to auscultation bilaterally Cardio Rate: regular rate Rhythm: regular rhythm Heart sounds: S1 normal heart sound present and S2 normal heart sound present Neuro General: patient oriented x3 Extrem Other: bilat feet: + sensation with use of monofilament, feet intact Psych Appearance: grossly normal Mental Status: mental status grossly normal Speech and movement: Normal speech and movement present Affect: normal affect Attitude: cooperative Thought process: Normal thought process present Thought content: Normal thought content present Insight: Good insight present (Psych) Judgement: Good judgement present (Psych) Results AMB Hemoglobin A1c AMB Hemoglobin A1c 8.0 % Last Edit by MOHAN Sanches on 02/25/24 13:00 Assessment and Plan Assessment & Plan (1) Type 2 diabetes mellitus with hyperglycemia: Code(s): E11.65 - Type 2 diabetes mellitus with hyperglycemia Qualifiers: Diabetes mellitus senior care insulin use: with senior care use Qualified Code(s): E11.65 - Type 2 diabetes mellitus with hyperglycemia; Z79.4 - group home (current) use of insulin Plan: Labs ordered, increasing lantus from 62 to 65 units Plan The patient agreed to the use of a medical office technician for this encounter. Scribed for LEONILA Finley by Jie Linder medical office technician, on 02/25/2024 at 12:55 EST. Orders: Orders Comprehensive [place]. Panel Fast Today E11.65 - Type 2 diabetes mellitus with hyperglycemia, Z79.4 - group home (current) use of insulin UA CC w/rflx Micro + Cult Today E11.65 - Type 2 diabetes mellitus with hyperglycemia, Z79.4 - group home (current) use of insulin Lipid Panel Today E11.65 - Type 2 diabetes mellitus with hyperglycemia, Z79.4 - terminal manager (current) use of insulin Complete Blood Count Auto Diff Today E11.65 - Type 2 diabetes mellitus with hyperglycemia, Z79.4 - terminal manager (current) use of insulin TSH reflex Free T4 Today E11.65 - Type 2 diabetes mellitus with hyperglycemia, Z79.4 - group home (current) use of insulin AMB Hemoglobin A1c Today Z13.9 - Encounter for screening, unspecified Medications: Changed From insulin glargine (Lantus Solostar U-100 Insulin) 62 units (0.62 mL) subcut DAILY 45 mL 3RF E11.65 - Type 2 diabetes mellitus with hyperglycemia To insulin glargine (Lantus Solostar U-100 Insulin) 65 units (0.65 mL) subcut DAILY 45 mL 3RF E11.65 - Type 2 diabetes mellitus with hyperglycemia Coding Level of Care Code Est Pt Level 3 (20462) Complex EM visit Add On G2211 Diagnoses Type 2 diabetes mellitus with hyperglycemia, with long-term current use of insulin E11.65; Z79.4 Diabetes mellitus senior care insulin use: with senior care use
[2024-02-25 12:34] VITALS: BP 122/86; PULSE 102; O2SAT 96; BMI 37.3
== END 2024-02-25 13:14 | disposition home or self-care (01) ==
PROVIDERS: PCP Nurse Practitioner Family; Visit Provider Nurse Practitioner Family
DX: E11.65 Type 2 diabetes mellitus with hyperglycemia (principal); Z79.4 Long term (current) use of insulin
CPT/HCPCS: 83036; 99213; G2211

== ENCOUNTER 2024-05-27 15:24 | Outpatient (AMB) | payer OTHER, SELFPAY ==
--- NOTE | 2024-05-27 15:27 | MHC.PC.OV ---
Vital Signs 05/27/24 15:34 Weight 250 lb BP 140/92 H Blood Pressure Location Rt brachial Position Sitting Pulse 101 H Pulse Source Pulse Oximeter Pulse Oximetry (%) 98 Oxygen Delivery Method Room Air Intake Visit Reasons: 3 mon follow up Intake Note: Patient here for DM f/u Allergies Sulfa (Sulfonamide Antibiotics) [SULFA (SULFONAMIDE ANTIBIOTICS)] Allergy (Unknown, Verified 05/27/24 15:34) HIVES semaglutide [From Ozempic] Adverse Reaction (Mild, Verified 05/27/24 15:34) gi issues trulicty Adverse Reaction (Mild, Uncoded 05/27/24 15:34) gi issues Medication List - Last Reconciled 05/27/24 by LEONILA Herrera atorvastatin 40 mg PO DAILY betamethasone dipropionate 0.05% 1 appl topical BID PRN 2 weeks blood sugar diagnostic TID testing, FREESTYLE LITE STRIPS blood-glucose meter (FreeStyle Lite Meter kit) As directed 3 x/day blood-glucose meter As directed empagliflozin (Jardiance) 25 mg PO DAILY insulin glargine (Lantus Solostar U-100 Insulin) 65 units (0.65 mL) subcut DAILY lancets As directed lisinopril 10 mg PO DAILY 90 days metformin 500 mg PO BID omeprazole 40 mg PO DAILY sildenafil 25 mg PO DAILY PRN tirzepatide (Mounjaro) 2.5 mg (0.5 mL) subcut QWEEK Tobacco use date assessed: 12/05/23 Dental Screening Dental Screen Date: 12/05/23 HPI 3 mon follow up HPI Details Pt is a diabetic, on an KASEY and a statin. Last A1C was 8.0, due for repeat, will order. Due for microalbumin, will order. Denies polyuria, polydipsia, and neuropathy. Pt denies any signs and symptoms of hypoglycemia and does know how to correct it. Pt reports that his blood sugar has been ranging from 120s-140s. He was previously on a GLP-1 agonist, but higher doses made him sick. Will start mounjaro 2.5mg. Pt will schedule his own eye exam. Note: May refer to endo in the future. [facility] Medical History Obstructive sleep apnea syndrome Elevated alkaline phosphatase level GERD (gastroesophageal reflux disease) Lumbar disc disease Proteinuria Type 2 diabetes mellitus with other diabetic kidney complication Hyperlipidemia LDL goal <100 Obesity due to excess calories Surgical History Hx of removal of cyst Family History Father CVD (cardiovascular disease) Diabetes mellitus Mother Mental health disorder Sister Substance use disorder Sister No problems noted. Son No problems noted. Daughter No problems noted. Daughter No problems noted. Social History Household Members: Children Housing: House Alcohol intake: current Alcohol intake frequency: does not drink Patient Tobacco Use Status: Former Tobacco user e-Cigarette/Vaping Use: Never Used Second Hand Smoke Exposure: No Substance Use Type: Marijuana service: No Current occupational status: employed Current occupation: [employer] Current occupational exposures/hazards: No Cognitive needs: No Hearing needs: No Vision needs: No Questionnaire PHQ-9 Over the last 2 weeks, how often have you been bothered by any of the following problems? 1. Little interest or pleasure in doing things: not at all 2. Feeling down, depressed, or hopeless: not at all 3. Trouble falling or staying asleep, or sleeping too much: not at all 4. Feeling tired or having little energy: not at all 5. Poor appetite or overeating: not at all 6. Feeling bad about yourself - or that you are a failure or have let yourself or your family down: not at all 7. Trouble concentrating on things, such as reading the newspaper or watching television: not at all 8. Moving or speaking so slowly that other people could have noticed. Or the opposite - being so fidgety or restless that you have been moving around a lot more than usual: not at all 9. Thoughts that you would be better off or of hurting yourself in some way: not at all Total score: 0 Depression Screening Interpretation: Negative Depression Screening Done: Yes 10993 - PHQ-9 Billing: Yes Source: Developed by Drs. Venkat Hilliard, Sallie B.Jarett Wheeler and colleagues, with an educational ailyn from [employer]. Thrive Questionnaire Date Thrive assessed: 12/04/22 I am a: Patient What is your living situation today?: I have a steady place to live Within the past 12 months, did the food you bought not last and you didn't have the money to get more?: Never true Within the past 12 months, did you worry whether your food would run out before you got money to buy more?: Never true Do you have trouble paying for medicines?: No Do you have trouble getting transportation to medical appointments?: No Do you have trouble paying your heating and electricity bill?: No Do you have trouble taking care of your child, family member or friend?: No Do you have trouble with day-to-day activities such as bathing, preparing meals, shopping, managing finances, etc.?: No Are you interested in more education?: No Please select the resources that you would like help with: None Currently or been in a relationship where the following occur: No concerns reported THRIVE Score: 0 AUDIT C Alcohol Use Questionnaire (AUDIT-C) 1. How often do you have a drink containing alcohol?: 2-4 times a month 2. How many drinks containing alcohol do you have on a typical day when you are drinking?: 5 or 6 3. How often do you have six or more drinks on one occasion?: Monthly Total Score: 6 RAY-7 AMB Questionnaire RAY-7 Date RAY - 7 assessed: 12/04/22 Feeling nervous, anxious, or on edge: 0 = Not at all Not being able to stop or control worryin = Not at all Worrying too much about different things: 0 = Not at all Trouble relaxin = Not at all Being so restless that it is hard to sit still: 0 = Not at all Becoming easily annoyed or irritable: 0 = Not at all Feeling afraid as if something awful might happen: 0 = Not at all Total RAY-7 score (0-4 normal; 5-9 mild; 10-14 moderate; 15-21 severe): 0 Source: Developed by Drs. Venkat Hilliard, Jarett Junior and colleagues, with an educational ailyn from [employer]. RAY-7 Assessment Billing RAY-7 Assessment Tool: RAY-7 Assessment 76939 Review of Systems Const Reports as per HPI Physical exam (Primary Care) Vital Signs: Last Vital Signs Pulse 101 H 05/27/24 15:34 BP 140/92 H 05/27/24 15:34 Pulse Ox 98 05/27/24 15:34 Oxygen Delivery Method Room Air 05/27/24 15:34 Tobacco/Smoking Status: Tobacco use Status Tobacco use date assessed 12/05/23 05/27/24 15:27 Patient Tobacco Use Status Former Tobacco user 05/27/24 15:27 e-Cigarette/Vaping Use Never Used 05/27/24 15:27 PHQ-9: PHQ-9 Score PHQ-9: Total score 0 05/27/24 15:40 Depression Screening Interpretation: Negative Thrive Assessment: Date of Thrive Assessment Date Thrive assessed 12/04/22 05/27/24 15:27 Currently or been in a relationship where the following occur: No concerns reported Const General: cooperative Orientation/consciousness: patient oriented x3 Resp Effort & Inspection: normal respiratory effort Auscultation: clear to auscultation bilaterally Cardio Rate: regular rate Rhythm: regular rhythm Heart sounds: S1 normal heart sound present and S2 normal heart sound present Neuro General: patient oriented x3 Extrem Other: bilat feet: + sensation with use of monofilament, feet intact Psych Appearance: grossly normal Mental Status: mental status grossly normal Speech and movement: Normal speech and movement present Affect: normal affect Attitude: cooperative Thought process: Normal thought process present Thought content: Normal thought content present Insight: Good insight present (Psych) Judgement: Good judgement present (Psych) Assessment and Plan Assessment & Plan (1) Type 2 diabetes mellitus with hyperglycemia: Code(s): E11.65 - Type 2 diabetes mellitus with hyperglycemia Qualifiers: Diabetes mellitus chcf insulin use: with lastex operator use Qualified Code(s): E11.65 - Type 2 diabetes mellitus with hyperglycemia; Z79.4 - principal statistical programmer (current) use of insulin Plan: Labs ordered, starting mounjaro Plan The patient agreed to the use of a medical office scheduler for this encounter. Scribed for LEONILA Finley by Jie Linder medical office scheduler, on 05/27/2024 at 15:40 EST. Orders: Orders Comprehensive [place]. Panel Fast Today E11.65 - Type 2 diabetes mellitus with hyperglycemia, Z79.4 - principal statistical programmer (current) use of insulin UA CC w/rflx Micro + Cult Today E11.65 - Type 2 diabetes mellitus with hyperglycemia, Z79.4 - principal statistical programmer (current) use of insulin Lipid Panel Today E11.65 - Type 2 diabetes mellitus with hyperglycemia, Z79.4 - principal statistical programmer (current) use of insulin Microalbumin, Random (w Creat) Today E11.65 - Type 2 diabetes mellitus with hyperglycemia, Z79.4 - principal statistical programmer (current) use of insulin Complete Blood Count Auto Diff Today E11.65 - Type 2 diabetes mellitus with hyperglycemia, Z79.4 - FDC (current) use of insulin TSH reflex Free T4 Today E11.65 - Type 2 diabetes mellitus with hyperglycemia, Z79.4 - principal statistical programmer (current) use of insulin Hemoglobin A1c Today E11.65 - Type 2 diabetes mellitus with hyperglycemia, Z79.4 - FDC (current) use of insulin Medications: New tirzepatide (Mounjaro) for 4 weeks 2.5 mg (0.5 mL) subcut QWEEK 2 mL 0RF Refilled empagliflozin (Jardiance) 25 mg PO DAILY 90 tabs 1RF E11.29 - Type 2 diabetes mellitus with other diabetic kidney complication atorvastatin 40 mg PO DAILY 90 tabs 1RF sildenafil administer 30 minutes to 4 hours before activity 25 mg PO DAILY PRN 10 tabs 0RF sexual activity insulin glargine (Lantus Solostar U-100 Insulin) 65 units (0.65 mL) subcut DAILY 45 mL 3RF E11.65 - Type 2 diabetes mellitus with hyperglycemia metformin 500 mg PO BID 180 tabs 1RF E11.65 - Type 2 diabetes mellitus with hyperglycemia, Z79.4 - FDC (current) use of insulin lisinopril 10 mg PO DAILY 90 tabs 0RF 90 days omeprazole 40 mg PO DAILY 90 caps 1RF Coding Level of Care Code Est Pt Level 3 (65633) Diagnoses Type 2 diabetes mellitus with hyperglycemia, with long-term current use of insulin E11.65; Z79.4 Diabetes mellitus lastex operator insulin use: with chcf use Additional Codes RAY-7 Assessment Billing - RAY-7 Assessment Tool: RAY-7 Assessment 10408 ([id number])
[2024-05-27 15:34] VITALS: BP 140/92; PULSE 101; O2SAT 98
== END 2024-05-27 16:46 | disposition home or self-care (01) ==
PROVIDERS: PCP Nurse Practitioner Family; Visit Provider Nurse Practitioner Family
DX: E11.65 Type 2 diabetes mellitus with hyperglycemia (principal); Z79.4 Long term (current) use of insulin

== ENCOUNTER → 2024-05-27 15:24 | Outpatient (BNVA) | payer OTHER, SELFPAY | PROVIDERS: PCP Nurse Practitioner Family; Visit Provider Nurse Practitioner Family | DX: E11.65 Type 2 diabetes mellitus with hyperglycemia (principal); Z79.4 Long term (current) use of insulin | CPT/HCPCS: 96127; 99212 ==

== ENCOUNTER 2024-09-01 07:59 | Outpatient (AMB) | payer OTHER, SELFPAY ==
[2024-09-01 08:10] VITALS: BP 122/80; PULSE 110; TEMP 36.6; O2SAT 95; BMI 38.3
--- NOTE | 2024-09-01 08:10 | MHC.OFFWIV ---
Intake Vital Signs 09/01/24 08:10 Height 5 ft 8 in Weight 252 lb BMI 38.3 BP 122/80 Blood Pressure Location Rt brachial Position Sitting Pulse 110 H Pulse Source Pulse Oximeter Temp 97.9 F Temp Source Oral Pulse Oximetry (%) 95 Oxygen Delivery Method Room Air Intake Visit Reasons: EP-chest congestion for the last 6 days Intake Note: Patient here for chest congestion, left ear pain that has been present for about 6 days. Patient Tobacco Use Status: Former Tobacco user Allergies Sulfa (Sulfonamide Antibiotics) [SULFA (SULFONAMIDE ANTIBIOTICS)] Allergy (Unknown, Verified 09/01/24 08:12) HIVES semaglutide [From Ozempic] Adverse Reaction (Mild, Verified 09/01/24 08:12) gi issues trulicty Adverse Reaction (Mild, Uncoded 09/01/24 08:12) gi issues Do you need a note to return to daycare/school/sports/work: No HPI EP-chest congestion for the last 6 days HPI Details This note is constructed using voice recognition software. While every effort has been made to ensure accuracy, food service cashier errors may have been included. The patient is a 39 year old male who presents to the clinic today with cough, sinus congestion for the last 6 days. He denies fever, chills, shortness of breath. It does report that he has got congestion which makes it hard to take a deep breath, as he is a nose breather. He has tried Mucinex with some good relief. He has taken to at-home COVID test which have been negative. [facility] Medical History Obstructive sleep apnea syndrome Elevated alkaline phosphatase level GERD (gastroesophageal reflux disease) Lumbar disc disease Proteinuria Type 2 diabetes mellitus with other diabetic kidney complication Hyperlipidemia LDL goal <100 Obesity due to excess calories Surgical History Hx of removal of cyst Family History Father CVD (cardiovascular disease) Diabetes mellitus Mother Mental health disorder Sister Substance use disorder Sister No problems noted. Son No problems noted. Daughter No problems noted. Daughter No problems noted. Social History Household Members: Children Housing: House Alcohol intake: current Alcohol intake frequency: does not drink Patient Tobacco Use Status: Former Tobacco user e-Cigarette/Vaping Use: Never Used Second Hand Smoke Exposure: No Substance Use Type: Marijuana service: No Current occupational status: employed Current occupation: [employer] Current occupational exposures/hazards: No Cognitive needs: No Hearing needs: No Vision needs: No Review of Systems Const All systems reviewed & are unremarkable except as noted in HPI and below Physical Exam Vital Signs: Last Vital Signs Temp 97.9 F 09/01/24 08:10 Pulse 110 H 09/01/24 08:10 BP 122/80 09/01/24 08:10 Pulse Ox 95 09/01/24 08:10 Oxygen Delivery Method Room Air 09/01/24 08:10 BMI result Body Mass Index 38.3 Const General: cooperative, healthy appearing, comfortable and no acute distress Orientation/consciousness: patient oriented x3 Limitations: no limitations HEENT Head: Yes normal to inspection Ears: hearing grossly normal bilaterally, external ears normal and TM's normal bilaterally General nose exam: Normal external nose present, Normal nares present and No nasal discharge present Face and sinus: Yes normal facial exam and Yes sinuses nontender Mouth: Normal oral and palatal mucosa present and moist mucous membranes Throat: Yes tonsils normal, Yes uvula midline and Yes posterior oropharynx abnormal (Erythema) Eyes General: appearance normal, both eyes and all related structures Neck Neck: Yes normal visual inspection Resp Effort & Inspection: normal respiratory effort, able to speak in complete sentences, Actively coughing, no respiratory distress, not tachypneic, no tripod positioning and no use of accessory muscles Auscultation: clear to auscultation bilaterally Cardio Jugular venous distension: no JVD Rate: regular rate Rhythm: regular rhythm Heart sounds: S1 normal heart sound present, S2 normal heart sound present, no click, no gallops, no murmurs and no rubs Skin General skin exam: no rashes or lesions noted, elasticity normal and turgor normal Neuro General: patient oriented x3 Extrem General: Yes normal to inspection and Yes no clubbing, cyanosis or edema Assessment & Plan Assessment & Plan (1) URI (upper respiratory infection): Code(s): J06.9 - Acute upper respiratory infection, unspecified Qualifiers: URI type: unspecified URI Qualified Code(s): J06.9 - Acute upper respiratory infection, unspecified Plan: Viral swab obtained to rule out Covid, Influenza, and RSV based on symptoms. Advised mask wearing while symptomatic and quarantine per current CDC guidelines. Reviewed at home support methods including hydration, humidification, vix vapor rub, sinus rinse, and otc treatment options. Benzonatate prescription sent for symptomatic management of cough. Advised follow up with worsening symptoms such as dyspnea at rest, which would require emergent evaluation. Plan See above for full details and plan. Orders: Orders SARS-CoV2/FLU/RSV Today J06.9 - Acute upper respiratory infection, unspecified Medications: New benzonatate 100 mg PO TID 5 days 15 caps 0RF Cough Coding Level of Care Code Est Pt Level 3 (05291) Diagnoses Upper respiratory tract infection, unspecified type J06.9 URI type: unspecified URI
== END 2024-09-01 08:44 | disposition home or self-care (01) ==
PROVIDERS: PCP Nurse Practitioner Family; Visit Provider Registered Nurse
DX: J06.9 Acute upper respiratory infection, unspecified (principal)

== ENCOUNTER 2024-09-01 07:59 | Outpatient (REF) | payer OTHER, SELFPAY ==
[2024-09-01 16:48] LABS: Influenza A PCR NEGATIVE (Negative); Influenza B PCR NEGATIVE (Negative); Resp Syncy Virus RNA Qual PCR POSITIVE (Negative); SARS COV2 PCR INHOUSE NEGATIVE (Negative)
== END 2024-09-01 08:00 | disposition home or self-care (01) ==
LOC: HO.LAB 07:59
PROVIDERS: PCP Nurse Practitioner Family; Visit Provider Registered Nurse
DX: J06.9 Acute upper respiratory infection, unspecified (principal)
CPT/HCPCS: 0241U; 99212

== ENCOUNTER 2024-09-27 06:57 | Outpatient (REF) | payer OTHER, SELFPAY ==
[2024-09-27 12:03] LABS: Appearance Urine Clear; Color Urine Yellow; Glucose Urine UA >=1000 mg/dL (Negative); Leukocyte Esterase Urine Negative (Negative); Nitrite Urine Negative (Negative); PH 5.5 (5.0-9.0); Specific Gravity - Urine >= 1.030 (1.005-1.025); UMIC TRIGGER UACC YES; Urine Blood Negative (Negative); Urine Ketones Trace mg/dL (Negative); Urine Protein 30 (1+) mg/dL (Neg-Trace)
[2024-09-27 12:11] LABS: Bacteria Urine None Seen (None Seen); Hyaline Casts Urine 0-2 /LPF (0-2); MANUAL DIFF FLAG NO; RBC Urine 0-2 /HPF (0-2); Squamous Epithelial Cell Urine 0-2 /HPF (0-2); WBC Urine 0-5 /HPF (0-5)
[2024-09-27 12:15] LABS: Basophils Absolute Auto 0.1 X10*3/uL (0.0-0.2); Basophils Percent Auto 1.3 % (0-2); Eosinophils Absolute Auto 0.3 X10*3/uL (0.0-0.4); Eosinophils Percent Auto 3.9 % (0-4); Hematocrit 46.1 % (42.0-52.0); Hemoglobin 15.6 g/dl (14.0-18.0); Imm Gran Abs Auto 0.02 X10*3/uL (0.00-0.03); Imm Gran Pct Auto 0.3 % (0.0-0.4); Lymphocytes Absolute Auto 2.2 X10*3/uL (1.2-4.9); Lymphocytes Percent Auto 32.7 % (20-40); Mean Corpuscular HGB Conc 33.8 g/dl (31.0-36.0); Mean Corpuscular Hemoglobin 30.6 pg (27.0-33.0); Mean Corpuscular Volume 90.4 fL (80.0-98.0); Mean Platelet Volume 11.3 fL (9.4-12.4); Monocytes Absolute Auto 0.6 X10*3/uL (0.1-1.2); Monocytes Percent Auto 9.1 % (2-11); Neutrophils Absolute Auto 3.6 x10*3/uL (2.0-8.3); Neutrophils Percent Auto 52.7 % (45-73); Platelet Count 209 X10*3/uL (160-400); Red Cell Distribution Width 12.9 % (11.0-16.0); White Blood Count 6.8 X10*3/uL (4.8-10.8)
[2024-09-27 12:40] LABS: Creatinine Urine 79.91 mg/dL; Microalbum/Creatinine Ratio Ur 185.2 ug/mg cr (<30)
[2024-09-27 12:50] LABS: Alanine Aminotransferase 51 U/L (0-40); Albumin Level 4.4 g/dL (3.5-5.0); Alkaline Phosphatase 116 U/L (39-117); Anion Gap 9 (12-20); Aspartate Amino Transferase 29 U/L (5-37); Bilirubin Total 0.5 mg/dL (0.0-1.0); Blood Urea Nitrogen 14 mg/dL (9-16); Calcium 9.1 mg/dL (8.4-10.2); Carbon Dioxide 29 mmol/L (22-29); Chloride 109 mmol/L (96-108); Cholesterol 132 mg/dL (<200); Estimated Glomerular Filt Rate > 60; Glucose Fasting 154 mg/dL (60-99); HDL Cholesterol 30 mg/dL (>40); LDL Cholesterol Calculated 75 mg/dL (<100); Potassium 4.1 mmol/L (3.3-5.1); Sodium 143 mmol/L (135-145); TSH reflex Free T4 0.89 uIU/mL (0.32-4.0); Total Protein 7.6 g/dL (6.5-8.0); Triglycerides 136 mg/dL (<150)
[2024-09-27 12:56] LABS: Estimated Average Glucose 189 mg/dL; Hemoglobin A1C 261.3896 umol/L; Hemoglobin A1c % 8.2 % (<6.0); Total Hemoglobin (HGBA1C) 3925.6552 umol/L
== END 2024-09-27 06:58 | disposition home or self-care (01) ==
LOC: HO.HMGCLDS 06:57
PROVIDERS: PCP Nurse Practitioner Family; Visit Provider Nurse Practitioner Family
DX: E11.65 Type 2 diabetes mellitus with hyperglycemia (principal); Z79.4 Long term (current) use of insulin
CPT/HCPCS: 36415; 80053; 80061; 81001; 81003; 82043; 82570; 83036; 84443; 85025

== ENCOUNTER 2024-09-29 13:48 | Outpatient (AMB) | payer OTHER, SELFPAY ==
[2024-09-29 13:51] VITALS: BP 152/80; PULSE 87; O2SAT 98; BMI 39.3
--- NOTE | 2024-09-29 13:51 | MHC.PC.OV ---
Vital Signs 09/29/24 13:51 09/29/24 14:52 Height 5 ft 8 in Weight 258 lb 4 oz BMI 39.3 BP 152/80 H 136/80 Blood Pressure Location Lt brachial Lt brachial Position Sitting Sitting Pulse 87 Pulse Source Pulse Oximeter Pulse Oximetry (%) 98 Intake Visit Reasons: 4m follow up Intake Note: pt is here for 4 month f.up re: diabetes Academic Affairs Vice President Required: No Accompanied by: Self / Same As Patient Allergies Sulfa (Sulfonamide Antibiotics) [SULFA (SULFONAMIDE ANTIBIOTICS)] Allergy (Unknown, Verified 09/29/24 14:35) HIVES semaglutide [From Ozempic] Adverse Reaction (Mild, Verified 09/29/24 14:35) gi issues trulicty Adverse Reaction (Mild, Uncoded 09/29/24 14:35) gi issues Medication List - Last Reconciled 09/29/24 by Kee German, SLAG SKIMMER-BC atorvastatin 40 mg PO DAILY betamethasone dipropionate 0.05% 1 appl topical BID PRN 2 weeks blood sugar diagnostic TID testing, FREESTYLE LITE STRIPS blood-glucose meter (FreeStyle Lite Meter kit) As directed 3 x/day blood-glucose meter As directed empagliflozin (Jardiance) 25 mg PO DAILY insulin glargine (Lantus Solostar U-100 Insulin) 65 units (0.65 mL) subcut DAILY lancets As directed lisinopril 10 mg PO DAILY 90 days metformin 500 mg PO BID omeprazole 40 mg PO DAILY sildenafil 25 mg PO DAILY PRN tirzepatide 2.5 mg (0.5 mL) subcut QWEEK Tobacco use date assessed: 09/29/24 Dental Screening Dental Screen Date: 09/29/24 Did you have a dental visit in the last 12 months?: Yes Did you have a dental problem in the last 6 months where you did not have access to dental care?: No Was dental information given to patient?: Patient has dentist HPI 4m follow up HPI Details Chief Complaint The patient presents for a follow-up of diabetes management. History of Present Illness The patient is a 39-year-old male presenting with a follow-up for Type 2 Diabetes Mellitus. The patient reports his current Hemoglobin A1c is approximately 8%. He denies experiencing polyuria, polydipsia, or symptoms of neuropathy. He expresses concerns regarding the potential adverse reactions associated with increasing his dose of Mounjaro, preferring to avoid any dosage increment currently. His current diabetes management includes 65 units of Lantus daily, which I decide to adjust to 70 units. He demonstrates a solid understanding of hypoglycemia symptoms and corrective measures. The patient has had regular eye examinations, with the most recent occurring last week. elevated liver enzymes, will order a hepatitis and abd US Social History Health Maintenance - Patient reports having had an eye exam last week. Review of Systems - Endocrine: Denies polyuria and polydipsia. - Neurological: Denies neuropathy symptoms. Physical Exam General: Cooperative, healthy appearing, comfortable, no acute distress and well developed Orientation: Patient oriented x3 Limitations: No limitations Head: Normal to inspection, several singular cysts present on the scalp (x3) Ears: Hearing grossly normal bilaterally Nose: Normal external nose present Face and sinus: Normal facial exam Eyes: Appearance normal, both eyes and all related structures Neck: Normal visual inspection and Yes full ROM Respiratory: Normal respiratory effort and able to speak in complete sentences. Clear to auscultation bilaterally Cardiovascular: Regular rate and rhythm. Normal S1 and S2 GI: Normal to inspection. Soft to palpation and nontender Skin: No rashes or lesions noted Neuro: Patient oriented x3 Extremities: Normal to inspection Results Plan - For Type 2 Diabetes Mellitus, the patient's Lantus dose was increased from 65 units to 70 units. - For scalp cysts, a referral to general services for potential removal was advised. Patient was informed and verbally consented to the use of an ambient scribe for clinic note documentation during this visit. Discussion Notes I discussed with the patient the management plan for Type 2 Diabetes Mellitus, including the decision to increase Lantus dosage to 70 units, emphasizing understanding of hypoglycemia and its management. The patient expressed apprehension regarding dosage increase to Mounjaro, and I acknowledged his concerns. Additionally, we discussed the referral to the general service for the removal of scalp cysts. I explained the reasons for advancing care and ensured understanding and agreement on the plan. Patient Instructions - Increase Lantus dosage to 70 units daily as instructed. - Be vigilant for symptoms of hypoglycemia and know corrective actions. - Keep scheduled appointments for a referral to general services for cyst removal. [facility] Medical History Obstructive sleep apnea syndrome Elevated alkaline phosphatase level GERD (gastroesophageal reflux disease) Lumbar disc disease Proteinuria Type 2 diabetes mellitus with other diabetic kidney complication Hyperlipidemia LDL goal <100 Obesity due to excess calories Surgical History Hx of removal of cyst Family History Father CVD (cardiovascular disease) Diabetes mellitus Mother Mental health disorder Sister Substance use disorder Sister No problems noted. Son No problems noted. Daughter No problems noted. Daughter No problems noted. Social History Household Members: Children Housing: House Alcohol intake: current Alcohol intake frequency: does not drink Patient Tobacco Use Status: Former Tobacco user e-Cigarette/Vaping Use: Never Used Second Hand Smoke Exposure: No Substance Use Type: Marijuana service: No Current occupational status: employed Current occupation: [employer] Current occupational exposures/hazards: No Cognitive needs: No Hearing needs: No Vision needs: No Questionnaire PHQ-9 Over the last 2 weeks, how often have you been bothered by any of the following problems? 1. Little interest or pleasure in doing things: not at all 2. Feeling down, depressed, or hopeless: not at all 3. Trouble falling or staying asleep, or sleeping too much: not at all 4. Feeling tired or having little energy: not at all 5. Poor appetite or overeating: not at all 6. Feeling bad about yourself - or that you are a failure or have let yourself or your family down: not at all 7. Trouble concentrating on things, such as reading the newspaper or watching television: not at all 8. Moving or speaking so slowly that other people could have noticed. Or the opposite - being so fidgety or restless that you have been moving around a lot more than usual: not at all 9. Thoughts that you would be better off or of hurting yourself in some way: not at all Total score: 0 Depression Screening Interpretation: Negative Depression Screening Done: Yes 78630 - PHQ-9 Billing: Yes Source: Developed by Drs. Venkat Hilliard, Sallie Murphy, Jarett Alvarado and colleagues, with an educational ailyn from [employer]. Thrive Questionnaire Date Thrive assessed: 09/29/24 I am a: Patient What is your living situation today?: I have a steady place to live Within the past 12 months, did the food you bought not last and you didn't have the money to get more?: Never true Within the past 12 months, did you worry whether your food would run out before you got money to buy more?: Never true Do you have trouble paying for medicines?: No Do you have trouble getting transportation to medical appointments?: No Do you have trouble paying your heating and electricity bill?: No Do you have trouble taking care of your child, family member or friend?: No Do you have trouble with day-to-day activities such as bathing, preparing meals, shopping, managing finances, etc.?: No Are you currently unemployed and looking for a job?: No Are you interested in more education?: No Please select the resources that you would like help with: None Currently or been in a relationship where the following occur: No concerns reported THRIVE Score: 0 AUDIT C Alcohol Use Questionnaire (AUDIT-C) 1. How often do you have a drink containing alcohol?: 2-4 times a month 2. How many drinks containing alcohol do you have on a typical day when you are drinking?: 7 to 9 3. How often do you have six or more drinks on one occasion?: Weekly Total Score: 8 Score Reviewed/Action Taken: Yes RAY-7 AMB Questionnaire RAY-7 Date RAY - 7 assessed: 09/29/24 Feeling nervous, anxious, or on edge: 0 = Not at all Not being able to stop or control worryin = Not at all Worrying too much about different things: 0 = Not at all Trouble relaxin = Not at all Being so restless that it is hard to sit still: 0 = Not at all Becoming easily annoyed or irritable: 0 = Not at all Feeling afraid as if something awful might happen: 0 = Not at all Total RAY-7 score (0-4 normal; 5-9 mild; 10-14 moderate; 15-21 severe): 0 Source: Developed by Drs. Venkat Hilliard, Sallie Murphy, Jarett Alvarado and colleagues, with an educational ailyn from [employer]. RAY-7 Assessment Billing RAY-7 Assessment Tool: RAY-7 Assessment 00519 Physical exam (Primary Care) Vital Signs: Last Vital Signs Pulse 87 09/29/24 13:51 BP 152/80 H 09/29/24 13:51 Pulse Ox 98 09/29/24 13:51 BMI result Body Mass Index 39.3 Tobacco/Smoking Status: Tobacco use Status Tobacco use date assessed 09/29/24 09/29/24 13:53 Patient Tobacco Use Status Former Tobacco user 09/29/24 13:53 e-Cigarette/Vaping Use Never Used 09/29/24 13:53 PHQ-9: PHQ-9 Score PHQ-9: Total score 0 09/29/24 14:44 Depression Screening Interpretation: Negative Thrive Assessment: Date of Thrive Assessment Date Thrive assessed 09/29/24 09/29/24 13:53 Currently or been in a relationship where the following occur: No concerns reported Coding Level of Care Code Est Pt Level 3 (90702) Diagnoses Elevated liver enzymes R74.8 Scalp cyst L72.9 Additional Codes RAY-7 Assessment Billing - RAY-7 Assessment Tool: RAY-7 Assessment 76610 ([id number]) PHQ-9 - 70786 - PHQ-9 Billing: Yes ([id number]) Assessment & Plan Assessment & Plan (1) Elevated liver enzymes: Code(s): R74.8 - Abnormal levels of other serum enzymes Category: Medical (2) Scalp cyst: Code(s): L72.9 - Follicular cyst of the skin and subcutaneous tissue, unspecified Category: Medical Plan . Orders: Orders US abdomen complete Today R74.8 - Abnormal levels of other serum enzymes Hepatitis A,B,C Profile Today R74.8 - Abnormal levels of other serum enzymes Referrals General Surgery Referral L72.9 - Follicular cyst of the skin and subcutaneous tissue, unspecified Medications: Changed From insulin glargine (Lantus Solostar U-100 Insulin) 65 units (0.65 mL) subcut DAILY 45 mL 3RF E11.65 - Type 2 diabetes mellitus with hyperglycemia To insulin glargine (Lantus Solostar U-100 Insulin) 70 units (0.7 mL) subcut DAILY 45 mL 3RF E11.65 - Type 2 diabetes mellitus with hyperglycemia
[2024-09-29 14:52] VITALS: BP 136/80
== END 2024-09-29 15:21 | disposition home or self-care (01) ==
PROVIDERS: PCP Nurse Practitioner Family; Visit Provider Nurse Practitioner Family
DX: R74.8 Abnormal levels of other serum enzymes (principal); L72.9 Follicular cyst of the skin and subcutaneous tissue, unspecified

== ENCOUNTER → 2024-09-29 13:48 | Outpatient (BNVA) | payer OTHER, SELFPAY | PROVIDERS: PCP Nurse Practitioner Family; Visit Provider Nurse Practitioner Family | DX: R74.8 Abnormal levels of other serum enzymes (principal); L72.9 Follicular cyst of the skin and subcutaneous tissue, unspecified | CPT/HCPCS: 96127; 99212 ==

== ENCOUNTER 2024-10-10 08:49 | Outpatient (REF) | payer OTHER, SELFPAY ==
--- NOTE | ~2024-10-10 | US_ITS ---
CLINICAL HISTORY: R74.8 - Abnormal levels of other serum enzymes US abdomen complete Comparison: None Findings: The visualized pancreas is normal. The aorta and inferior vena cava are normal caliber. The liver is normal in size and increased in echotexture. There is no intrahepatic bile duct dilatation. The common duct is 4 mm in diameter. The gallbladder is normal. There is no sonographic Wooten sign. The main portal vein is antegrade. The right kidney is 12 cm in length. The left kidney is 12.7 cm in length. The spleen is mildly enlarged at 15 cm No ascites. IMPRESSION: Hepatic steatosis. Splenomegaly. No definite acute process. This document has been electronically signed by: Gopi Benítez MD on 10/10/2024 11:02:38
--- OUTSIDE RECORDS SUMMARY | 2024-10-10 09:06 | XMS_ITS | Encounter Summary ---
Author Organization [facility] Address [address] [place] [address] Care Team Providers Care Sports Anchor Name Role Phone Steven Simpson MD Primary Care Provider + [phone] Reason for Visit * Reason Onset Date Comments er follow up 04/04/2018 [facility] Encounter Details Date Type Department Care Team Description 04/04/2018 Telephone Adult Medicine [facility] [address] [place] [id number] [phone] Steven Simpson MD [address] [place] [address] [phone] er follow up ([facility]) Social History Tobacco Use Types Packs/Day Years Used Date Smoking Tobacco: Never Smokeless Tobacco: Never Alcohol Use Standard Drinks/Week Comments Not Asked 0 (1 standard drink = 0.6 oz pur e alcohol) Sex Assigned at Date Recorded Not on file documented as of this encounter Miscellaneous Notes * Telephone Encounter - Maria E Leigh - 04/04/2018 3:26 PM EDT ER follow-up appointment booked YES 04/08/18 If ER or UC follow up, can be booked with APC or MD. If hospital admission follow up MUST be booked with a physician Appointment time: 1:30PM Provider visit is scheduled with: [facility] patient was treated at: [facility] Date of visit: 04/01/18 Was this only an ER/UC visit or was the patient admitted to the hospital? ER visit onlyER visit only If patient was admitted what was the date of discharge? N/A Reason/diagnosis for visit or stay: lowe back pain Was visit or stay related to an injury? YES If yes, what was the date of injury (DOI)? 04/01/18 If yes, was the injury due to Worker's Comp Tests performed: Lab: YES X-ray: YES EKG: YES Other tests. If yes, what?; N/A documented in this encounter Plan of Treatment Not on file documented as of this encounter Visit Diagnoses Not on filedocumented in this encounter Care Teams Sports Anchor Relationship Specialty Start Date End Date Steven Simpson MD [address] [place] [id number] PCP - General Internal Medicine 01/08/12 documented as of this encounter
--- OUTSIDE RECORDS SUMMARY | 2024-10-10 09:06 | XMS_ITS | Encounter Summary ---
Author Organization [facility] Address [address] [place] [address] Care Team Providers Care Ornamental Metal Worker Apprentice Name Role Phone Steven Simpson MD Primary Care Provider [phone] Encounter Details Date Type Department Care Team Description 07/09/2012 Transfer Records Medical Records [address] [place] [address] Abstract, Provider Social History Tobacco Use Types Packs/Day Years Used Date Smoking Tobacco: Never Smokeless Tobacco: Never Alcohol Use Standard Drinks/Week Comments Not Asked 0 (1 standard drink = 0.6 oz pur e alcohol) Sex Assigned at Date Recorded Not on file documented as of this encounter Plan of Treatment Not on file documented as of this encounter Visit Diagnoses Not on filedocumented in this encounter Care Teams Ornamental Metal Worker Apprentice Relationship Specialty Start Date End Date Steven Simpson MD [address] [place] [id number] PCP - General Internal Medicine 01/08/12 documented as of this encounter
--- OUTSIDE RECORDS SUMMARY | 2024-10-10 09:06 | XMS_ITS | Encounter Summary ---
Author Organization [facility] Address [address] [place] [address] Care Team Providers Care Microsoft Systems Engineer Name Role Phone Steven Simpson MD Primary Care Provider [phone] Encounter Details Date Type Department Care Team Description 03/04/2012 Release of Information Medical Records [address] [place] [id number] Abstract, Provider Social History Tobacco Use Types Packs/Day Years Used Date Smoking Tobacco: Never Alcohol Use Standard Drinks/Week Comments Not Asked 0 (1 standard drink = 0.6 oz pur e alcohol) Sex Assigned at Date Recorded Not on file documented as of this encounter Plan of Treatment Not on file documented as of this encounter Visit Diagnoses Not on filedocumented in this encounter Care Teams Microsoft Systems Engineer Relationship Specialty Start Date End Date Steven Simpson MD [address] [place] [id number] PCP - General Internal Medicine 01/08/12 documented as of this encounter
--- OUTSIDE RECORDS SUMMARY | 2024-10-10 09:07 | XMS_ITS | Clinical Summary ---
Author Organization [facility] Address [address] [place] [address] Care Team Providers Care Client Success Manager Name Role Phone Steven Simpson MD Primary Care Provider [phone] Allergies Active Allergy Reactions Severity Noted Date Comments Sulfa Drugs Hives/Urticaria,Itching/Pruritus Medium Medications Medication Sig Dispensed Refills Start Date End Date Status Blood Glucose Monitoring Suppl (ONE TOUCH ULTRA SYSTEM KIT) W/DEVICE KIT 1 Kit by Does not apply route 2 times daily. Please check blood sugar twice daily. Check before breakfast and two hours after dinner. 1 Kit 0 07/03/2012 Active glucose blood test strips (ONE TOUCH ULTRA TEST STRIPS) strip Apply 1 Strip topically 2 times daily. 100 Each 3 07/11/2012 Active simvastatin (ZOCOR) 5 MG tablet Take 1 Tab by mouth at bedtime. 90 Tab 0 12/29/2016 Active glipiZIDE (GLUCOTROL) 5 MG tablet TAKE TWO TABLETS BY MOUTH IN THE MORNING, AND TAKE ONE TABLET IN THE EVENING 270 Tab 0 12/10/2017 Active metformin (GLUCOPHAGE) 500 MG tablet TAKE TWO TABLETS BY MOUTH TWICE DAILY WITH MEALS 360 Tab 0 12/10/2017 Active ibuprofen (ADVIL,MOTRIN) 600 MG tabletIndications:Left lumbar radiculopathy Take 600 mg by mouth every 6 hours as needed. 0 Active Active Problems Patient Care Coordination No te Formatting of this note is d ifferent from the original. Checking Your Blood Sugars Please check your blood sugars every day. Please check your sugars at the following times of day: before breakfast Your Blood Sugar Goals Pre Meal: 90-130 2 hours after meals: 110-160 Bedtime: 110-150 Use the Results ?? Bring your glucometer to every appointment ?? Write your fingerstick blood sugars down on a log sheet or record book. Bring them to your appointment ?? Look for patterns in the numbers. The results help you and your provider make decisions about your diabetes treatment plan. Your Results and your Goals Your Result / Date of Completion Your Goal / How Often to Assess Component Value Date HGBA1C 7.3 08/23/2015 Less than 7% --- 2-4 times per year BP Readings from Last 1 Encounters: 02/15/16 130/70 Less than 140/90 --- once per year Component Value Date MALBCR 42.9 08/23/2015 Less than 30 --- once per year Component Value Date LDL 129 11/14/2014 Less than 100 --- once per year Wt Readings from Last 1 Encounters: 02/15/16 252 lb 3.2 oz (114.397 kg) Your goal weight by next visit: 245 --- reassess 2-4 times a year Health Maintenance Due Topic Date Due ? ? Pneumovax For High Risk Patients (1) 2001 ? ? Baseline Health Exam 18-39 2002 ? ? Diabetes: Annual Foot Exam 03/30/2015 ? ? Diabetes: Annual Care Plan 04/13/2015 ? ? Diabetes/heart Disease: Annual Cholesterol (Ldl) 11/15/2015 ? ? Diabetes: Blood Sugar Control Test (Hgba1c) 12/23/2015 Your Action Plan Check blood glucose as directed and write down all results. Contact me if you experience any barriers to care such as inability to purchase your medication, difficulty getting to your appointments or difficulty understanding your care plan When to Call your Healthcare Provider If your blood sugar falls below 70 and you do not know why or you become unconscious If you are sick and unable to take liquids because or nausea or vomiting If you have a fever over 101 If your blood sugar is 300 or higher on greater than 3 separate occasions during the same week If you are just unsure what to do Educational Resources [place] Diabetes Association (www.diabetes.org) Centers for Disease Control and Prevention (www.cdc.gov/diabetes) This care plan was created in collaboration with Alexis Perry on 02/15/2016 Problem Noted Date Glaucoma suspect 04/28/2016 Obstructive sleep apnea of adult 016 Overview: N/S pulmo 08/01 ResScan 06/24/2016 to 07/23/2016. CPAP@ 6-20/Average 10.6/Max 12.6. 43% compliant with using the machine for >4 hours/day. Average use is 4.75 hours a night with AHI 0.9. DM (diabetes mellitus), type 2, uncontro lled, with renal complications 07/11/2013 Type 2 diabetes mellitus with cataract 1 09/10/2012 HTN (hypertension) 10/21/2012 Microalbuminuria 07/03/2012 Immunizations Name Administration Dates Next Due Influenza (> 6 Months) 07/03/2012 Pneumoccoccal(Adult) Polysaccharide PPSV23 02/14 Tdap 03/30/2014 Family History Medical History Relation Name Comments Blindness Father [place] Father dm type I Father Cataract Negative Hx Glaucoma Negative Hx Macular Degeneration Negative Hx Strabismus Negative Hx Relation Name Status Comments Father Social History Tobacco Use Types Packs/Day Years Used Date Smoking Tobacco: Former Cigarettes 0.5 0 04/08/1995 - 04/08/2001 Smokeless Tobacco: Never Alcohol Use Standard Drinks/Week Comments Not Asked 0 (1 standard drink = 0.6 oz pur e alcohol) Sex Assigned at Date Recorded Not on file Last Filed Vital Signs Vital Sign Reading Time Taken Comments Blood Pressure 126/84 04/23/2018 4:03 PM EDT Pulse 80 04/16/2018 8:11 AM EDT Temperature 31.1 ??C (88 ??F) 04/23/2018 4:03 PM EDT Respiratory Rate 18 04/23/2018 4:03 PM EDT Oxygen Saturation 97% 04/19/2016 8:18 AM EDT Inhaled Oxygen Concentration - - Weight 110.8 kg (244 lb 3.2 oz) 04/23/2018 4:03 PM EDT Height 175.3 cm (5' 9 ) 04/23/2018 4:03 PM EDT Body Mass Index 36.06 04/23/2018 4:03 PM EDT Plan of Treatment Health Maintenance Due Date Last Done Comments Covid-19 Vaccine (#1) 1985 DIABETES: ANNUAL EYE EXAM 06/10/20152013, 06/08/2014, 10/14/2012 DIABETES: BLOOD SUGAR CONTRO L TEST (HGBA1C) 01/05/2017 10/07/2016, 02/15/2016, 08/23/2015, Additional history exists DIABETES: ANNUAL FOOT EXAM 02/14/2017 02/15/2016, DIABETES/HEART DISEASE: DEEPAK AL CHOLESTEROL (LDL) 10/07/2017 10/07/2016, 02/15/2016, 11/14/2014, Additional history exists DIABETES: ANNUAL URINE PROTE IN TEST (MICROALBUMIN) 10/07/2017 10/07/2016, 02/15/2016, 08/23/2015, Additional history exists BASELINE HEALTH EXAM 40-64 2023 DTAP/TDAP/TD (2 - Td or Tdap) 03/30/2024 03/30/2014 INFLUENZA (#1) 2024 07/03/2012 BMI CHECK/ADVISE 09/10/2024 07/17/2016, 06/2016, 02/16/2016, Additional history exists PNEUMOCOCCAL VACCINE FOR HIG H RISK PATIENTS (#2) 02/02/2048 02/15/2016 Care Teams Client Success Manager Relationship Specialty Start Date End Date Steven Simpson MD [address] [place] [id number] PCP - General Internal Medicine 01/08/12
--- OUTSIDE RECORDS SUMMARY | 2024-10-10 09:07 | XMS_ITS | Data Portability ---
Author Organization [facility], [address] Address [address] [place] [address] Care Team Providers Care Curer Acid Drum Name Role Phone [facility] Primary Care Provider Assessment No assessment recorded. Plan of Treatment Reminders Order Date Submit Date Provider Last Modified By Organization Details Last Modified Time Details Appointments None recorded. Lab None recorded. Referral None recorded. Procedures None recorded. Surgeries None recorded. Imaging XR, elbow, 3 or more view - Right elbow pain. no trauma . painful range of motion , rule out any fracture 2021 022 [facility] _[facility], [address] [place] [address], [phone], 11:20:50 Medication Orders ibuprofen 800 mg tablet 2021 [facility]22 [email or web address], [address] [place] [address], [address], 09:04:37 Patient TargetsNo targets recorded. Patient Instructions Encounter Date Encounter Id Patient Instructions Last Modified By Organization Details Last Modified Time 08/26/2022 [id number] learning about rice (rest, ice, compression, and elevation) [email or web address] Not available 08/26/2022 09:04:37 Discussed RICE (rest, ice, compression, elevation) take ibuprofen 600 mg every 6 hours for inflammation. Elbow support given along with work restrictions to include no lifting over 10 pounds, no outstretched work. [email or web address] Not available 08/26/2022 09:02:59 Reason for Referral None Reported. Results Created Date Observation Date Name Description Value Unit Range Abnormal Flag Note LastModifiedBy Organization Detail LastModifiedTime 08/26/20 22 XR, elbow , 3 or more view No observ ation record ed. [email or web address] [id number] [place], [address], 08/26/2022 14:35:09 Result Notes None recorded. Problems Name Problem SNOMED Code Status Onset Date Resolution Date Notes Provider Name and Address Organization Details Recorded Time Diabetes mellitus 41356030 Active 2021 RODRIGO NELDA null, PA - [facility] 2 08:36:07 Hypertensive disorder 15970856 Active 2021 RODRIGO NELDA null, PA - [facility] 2 08:36:16 Gastroesophage al reflux disease 505620723 Active 2021 RODRIGO NELDA null, PA - [facility] 2 08:36:30 Problem Notes None recorded. Procedures Surgical History None recorded. Imaging Results Imaging Date Name Status LastModified by Organiz ation Details LastModified Time 08/26/2022 XR, elbow, 3 or more view completed [id number] [place], [address], 08/26/2022 14:35:09 Procedure Notes None recorded. Medical Equipment None Reported. Allergies Allergen ID Allergen Name Allergen Category Reaction Reaction Severity Criticality Documentation Date Start Date Code Code System Note Provider Name and Address Organization Details Recorded Time 54436 Substance with sulfonami de structure and antibacte rial mechanism of action (substanc e) medicatio n hives Not available Not available 08/26/2022 63493 8003 SNOMED RODRIGO NELDA null, PA - [facility] 08:34:36 51154 Trulicity medicatio n other Not available Not available 08/26/2022 89922 96 RxNorm RODRIGO NELDA null, PA - [facility] 2 08:34:58 Medications Name Sig Start Date Stop Date Status Note LastModified by Organization Details LastModified Time ibuprofen 800 mg tablet Take 1 tablet 3 times a day by oral route with meals for 7 days. 022 active Not Available Not Available Not Avai lable atorvastatin active Not Available Not Available Not Available omeprazole active Not Available Not Av ailable Not Available lisinopril active Not Available Not Av ailable Not Available metformin active Not Available Not Claudine ilable Not Available Lantus Solostar U-100 Insulin active Not Available Not Available Not Available Jardiance active Not Available Not Claudine ilable Not Available Vitals Date Recorded Body height Provider Name an d Address Organization Details Last Updated DateTime 08/26/2022 175.26 cm RODRIGO LUTZ PA - [facility] 08/26/2022 08:37:37 Date Recorded Body mass index (BMI) Body weight Provider Name and Address Organization Details Last Updated DateTime 08/26/2022 35.4 kg/m2 636274.17 g RODRIGO LUTZ PA - [facility] 08/26/2022 08:37:45 Date Recorded Pain severity - 0-10 verbal numeric rating [Score] - Reported Provider Name and Address Organization Details Last Updated DateTime 08/26/2022 10 RODRIGO LUTZ PA - [facility] 08/26/2022 08:37:54 Date Recorded Oxygen saturation Oxygen saturation in Arterial blood by Pulse oximetry Provider Name and Address Organization Details Last Updated DateTime 08/26/2022 96 % 96 % RODRIGO LUTZ PA - [facility] 08/26/2022 08:38:14 Date Recorded Heart rate Provider Name an d Address Organization Details Last Updated DateTime 08/26/2022 97 /min RODRIGOJazzy LUTZ PA - [facility] 08/26/2022 08:38:18 Date Recorded Respiratory rate Provider Name a nd Address Organization Details Last Updated DateTime 08/26/2022 16 /min RODRIGO LUTZ PA - [facility] 08/26/2022 08:38:22 Date Recorded Body temperature Provider Name a nd Address Organization Details Last Updated DateTime 08/26/2022 98.2 [degF] RODRIGO LUTZ PA - [facility] 08/26/2022 08:38:31 Date Recorded Systolic blood pressure Diastolic blood pressure Provider Name and Address Organization Details Last Updated DateTime 08/26/2022 147 mm[Hg] 91 mm[Hg] RODRIGO LUTZ PA - [facility] 08/26/2022 08:38:08 Social History Question Answer Notes LastModified by Organizat ion Details LastModified Time Tobacco Smoking Status Never Smoker RODRIGO de, PA - [facility] 08/26/2022 08:37:10 What Is Your Level Of Alcohol Consumption? Occasional Information not available 08/26/2022 Are You Currently Employed? Yes Information not available 08/26/2022 Do You Use Any Illicit Or Recreational Drugs? No Information not available 08/26/2022 Have You Recently Traveled Abroad? No Information not available 08/26/2022 Sex: Unknown Functional Status None recorded. Mental Status None recorded. Family History Nothing Reported. Medical History No medical history recorded. Immunizations Vaccine Type Date Status Note Provider Nam e and Address Organization Details Recorded Time Influenza, MDCK, quadrivalent, PF 08/26/2022 completed Qasim Ramirez NP [address] [place] [address] [place], [email or web address] PA - [facility] 08/26/2022 14:35:44 Past Encounters Encounter ID Performer Location Encounter Start Date Encounter Closed Date Diagnosis/Indication Diagnosis SNOMED-CT Code Diagnosis ICD10 Code Diagnosis Note [id number] [address] [address] 10/05/2020 18:43:45 10/05/2020 19:34:23 [id number] [address] [address] 11/10/2015 19:30:10 11/10/2015 20:42:47 [id number] Qasim Ramirez NP [address] [address] 08/26/2022 08:06:32 08/26/2022 09:10:50 Tendinitis of right elbow 6484671649 3842049 M67.823 Sprain of right elbow. will screen for any fracture. Ricardo wrap applied for comfort . take medication as prescribed . follow up as needed after X-ray right elbow. Administra tion of influenza vaccine 09196084 Z23 Health Concerns Section Related Observation LastModified by Organization Detai ls LastModified Time None Recorded Concern Status LastModified by Organization Details LastModified Time None Recorded Advance Directives Directive None Recorded Payers Encounter Date Sequence Insurance Name Policy Number Policy Novoa Covered Member ID Novoa Member ID Guarantor Name 10/05/2020 1 [facility] [facility] Alexis Faria-Hans ratt [id number] Alexis Rudd 08/26/2022 1 [facility] ([facility] [facility] Alexis Faria-Sp ratt [id number] Alexis Rudd Notes Date Note Type Note Provider Name and Address Organization Details Recorded Time 08/26/2022 text/html Forearm / WristReported bypatient.Notes:mookie n right elbow x 2 days. went to [employer] and since then pain upon movement.have full range of Motion. Qasim Ramirez NP [address] [place], [address], PA - [facility] 08/26/2022 14:35:57
== END 2024-10-10 08:50 | disposition home or self-care (01) ==
LOC: HO.HMGCX 08:49
PROVIDERS: PCP Nurse Practitioner Family; Visit Provider Nurse Practitioner Family
DX: R74.8 Abnormal levels of other serum enzymes (principal)
CPT/HCPCS: 76700

== ENCOUNTER → 2024-10-10 08:51 | Outpatient (BNV) | payer OTHER, SELFPAY | PROVIDERS: PCP Nurse Practitioner Family; Visit Provider Radiology Vascular & Interventional Radiology | DX: R74.8 Abnormal levels of other serum enzymes (principal) | CPT/HCPCS: 76700 ==

== ENCOUNTER 2024-10-13 15:15 | Outpatient (AMB) | payer OTHER, SELFPAY ==
[2024-10-13 15:16] VITALS: BMI 39.1
--- NOTE | 2024-10-13 15:16 | MHC.OFFVIS ---
Vital Signs 10/13/24 15:16 Height 5 ft 8 in Weight 257 lb BMI 39.1 Intake Visit Reasons: Follicular cyst of skin Intake Note: This patient presents for Follicular cyst of skin. 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 Accompanied by: Self / Same As Patient Allergies Sulfa (Sulfonamide Antibiotics) [SULFA (SULFONAMIDE ANTIBIOTICS)] Allergy (Unknown, Verified 10/13/24 15:22) HIVES semaglutide [From Ozempic] Adverse Reaction (Mild, Verified 10/13/24 15:22) gi issues trulicty Adverse Reaction (Mild, Uncoded 10/13/24 15:22) gi issues Medication List - Last Reconciled 10/13/24 by Lencho Savage MD atorvastatin 40 mg PO DAILY betamethasone dipropionate 0.05% 1 appl topical BID PRN 2 weeks blood sugar diagnostic TID testing, FREESTYLE LITE STRIPS blood-glucose meter (FreeStyle Lite Meter kit) As directed 3 x/day blood-glucose meter As directed empagliflozin (Jardiance) 25 mg PO DAILY insulin glargine (Lantus Solostar U-100 Insulin) 70 units (0.7 mL) subcut DAILY lancets As directed lisinopril 10 mg PO DAILY 90 days metformin 500 mg PO BID omeprazole 40 mg PO DAILY sildenafil 25 mg PO DAILY PRN tirzepatide 2.5 mg (0.5 mL) subcut QWEEK HPI HPI Follicular cyst of skin: Details: 39-year-old male here for multiple scalp cysts. He had scalp cysts removed in the past He was 3 other scalp cysts which he feels have decreased in size so he wants these removed as well. He denies any other complaints otherwise. He denies any drainage from this cysts. [facility] Medical History H/O splenomegaly Fatty liver Obstructive sleep apnea syndrome Elevated alkaline phosphatase level GERD (gastroesophageal reflux disease) Lumbar disc disease Proteinuria Type 2 diabetes mellitus with other diabetic kidney complication Hyperlipidemia LDL goal <100 Obesity due to excess calories Surgical History Hx of removal of cyst Family History Father CVD (cardiovascular disease) Diabetes mellitus Mother Mental health disorder Sister Substance use disorder Sister No problems noted. Son No problems noted. Daughter No problems noted. Daughter No problems noted. Social History Household Members: Children Housing: House Alcohol intake: current Alcohol intake frequency: does not drink Patient Tobacco Use Status: Former Tobacco user e-Cigarette/Vaping Use: Never Used Second Hand Smoke Exposure: No Substance Use Type: Marijuana service: No Current occupational status: employed Current occupation: [employer] Current occupational exposures/hazards: No Cognitive needs: No Hearing needs: No Vision needs: No Review of Systems Const Denies chills and Denies fever(s) Card Denies chest pain, Denies dyspnea and Denies dyspnea on exertion Resp Denies cough, Denies dyspnea and Denies dyspnea on exertion GI Denies hematochezia and Denies change in bowel habits Denies hematuria and Denies difficulty urinating Musc Denies back pain and Denies limited range of motion Neuro Denies focal weakness and Denies convulsions Psych Denies depression and Denies mood swings Physical Exam Vital Signs: BMI result Body Mass Index 39.1 Const General: comfortable and no acute distress Orientation/consciousness: patient oriented x3 HEENT Other: Scalp cyst, about 1.5 cm in diameter, on the occipital area to the left Scalp cyst, about 1 cm in diameter, on the right parietal area Scalp cyst, about 1 cm on the left temporal area Neck Neck: Yes no lymphadenopathy Resp Auscultation: clear to auscultation bilaterally Cardio Rhythm: regular rhythm GI Palpation (GI): Soft to palpation, nontender and no guarding Neuro General: patient oriented x3 Assessment & Plan Assessment & Plan (1) Scalp cyst: Code(s): L72.9 - Follicular cyst of the skin and subcutaneous tissue, unspecified Category: Medical Plan: He has multiple scalp cysts as described above. He wants these excised. I explained the technique of excision under local anesthesia. I reviewed the risks including but not limited bleeding and infections, as well as the benefits and alternatives. He says he understands and wants to proceed. He will be scheduled for excision of scalp cysts x3 under local anesthesia in the office on his next visit. Coding Level of Care Code New Pt Level 3 (96200) Diagnoses Scalp cyst L72.9
--- OUTSIDE RECORDS SUMMARY | 2024-10-13 16:45 | XMS_ITS | Data Portability ---
Author Organization [facility], [address] Address [address] [place] [address] Care Team Providers Care Hydramatic Specialist Name Role Phone [facility] Primary Care Provider Assessment No assessment [...] , rule out any fracture 2021 022 [place] _[facility], [address] [place] [address], [phone], 11:20:50 Medication Orders ibuprofen 800 mg tablet 2021 022 [facility], [address] [place] [address], [phone], 09:04:37 Patient TargetsNo targets recorded. Patient Instructions Encounter Date Encounter Id Patient Instructions Last Modified By Organization Details Last Modified Time 08/26/2022 [id number] learning about rice (rest, ice, compression, and [...] ation record ed. [id number] [place], [address], 08/26/2022 14:35:09 Result Notes None recorded. Problems Name Problem SNOMED Code Status Onset Date Resolution Date Notes Provider Name and Address Organization Details Recorded Time Diabetes mellitus 44816785 Active 2021 RODRIGO NELDA null, PA - [facility] 2 08:36:07 Hypertensive disorder 69218458 Active 2021 RODRIGO NELDA null, PA - [facility] 2 08:36:16 Gastroesophage al reflux disease 218820529 Active 2021 RODRIGO NELDA null, PA - [facility] 08:36:30 Problem Notes None recorded. Procedures Surgical History None recorded. Imaging Results Imaging Date Name Status LastModified by Organiz ation Details LastModified Time 08/26/2022 XR, elbow, 3 or more view completed [email or web address] [place], [address], 08/26/2022 14:35:09 Procedure Notes None recorded. Medical Equipment None Reported. Allergies Allergen ID Allergen Name Allergen Category Reaction Reaction Severity Criticality Documentation Date Start Date Code Code System Note Provider Name and Address Organization Details Recorded Time 81717 Substance with sulfonami de structure and antibacte rial mechanism of action (substanc e) medicatio n hives Not available Not available 08/26/2022 35334 8003 SNOMED RODRIGO NELDA null, PA - [facility] 08:34:36 64184 Trulicity medicatio n other Not available Not available 08/26/2022 15078 96 RxNorm RODRIGO NELDA null, PA - [...] Not Available Vitals Date Recorded Body height Body mass index (BMI) Body weight Pain severity - 0-10 verbal numeric rating [Score] - Reported Oxygen saturation Oxygen saturation in Arterial blood by Pulse oximetry Heart rate Respiratory rate Body temperature Systolic blood pressure Diastolic blood pressure Provider Name and Address Organization Details Last Updated DateTime 175.26 cm 35.4 kg/m2 698183. 17 g 10 96 % 96 % 97 /min 16 /min 98.2 [degF] 147 mm[Hg] 91 mm[Hg] RODRIGO LUTZ PA - [facility] 08:38:08 Social History Question Answer Notes LastModified by Organizat ion Details LastModified Time Tobacco Smoking Status Never Smoker RODRIGO de PA - [facility] 08/26/2022 08:37:10 What [...] quadrivalent, PF 08/26/2022 completed Qasim Ramirez NP [address] [place], [address], PA - [facility] 08/26/2022 14:35:44 Past Encounters Encounter ID Performer Location Encounter Start Date Encounter Closed Date Diagnosis/Indication Diagnosis SNOMED-CT Code Diagnosis ICD10 Code Diagnosis Note [id number] [address] [facility] [place] [address] 10/05/2020 18:43:45 10/05/2020 19:34:23 [id number] [address] [facility] [place] [address] 11/10/2015 19:30:10 11/10/2015 20:42:47 [id number] Qasim Ramirez NP [address] [facility] [place] [address] 08/26/2022 08:06:32 08/26/2022 09:10:50 Tendinitis of right elbow 8100245878 7935634 M67.823 Sprain of right elbow. will screen for any fracture. Ricardo wrap applied for comfort . take medication as prescribed . follow up as needed after X-ray right elbow. Administra tion of influenza vaccine 50112477 Z23 Health Concerns Section Related Observation LastModified by Organization Detai ls LastModified Time None Recorded Concern Status LastModified by Organization Details LastModified Time None Recorded Advance Directives Directive None Recorded Payers Encounter Date Sequence Insurance Name Policy Number Policy Novoa Covered Member ID Novoa Member ID Guarantor Name 10/05/2020 1 [facility] [employer] ([facility] [place] Alexis gleason [id number] Alexis Rudd 08/26/2022 1 [facility] [employer] ([facility] [facility] Alexis [employer] [id number] Alexis Rudd Notes Date Note Type Note Provider Name and Address Organization Details Recorded Time 08/26/2022 text/html Forearm / WristReported bypatient.Notes:mookie n right elbow x 2 days. went to [employer] and since then pain upon movement.have full range of Motion. Qasim Ramirez NP [address] [place], [address], [place] - [facility] 08/26/2022 14:35:57
== END 2024-10-13 15:28 | disposition home or self-care (01) ==
PROVIDERS: PCP Nurse Practitioner Family; Visit Provider Surgery
DX: L72.9 Follicular cyst of the skin and subcutaneous tissue, unspecified (principal)
CPT/HCPCS: 99203

== ENCOUNTER → 2024-10-13 15:15 | Outpatient (BNVA) | payer OTHER, SELFPAY | PROVIDERS: PCP Nurse Practitioner Family; Visit Provider Surgery | DX: L72.9 Follicular cyst of the skin and subcutaneous tissue, unspecified (principal) | CPT/HCPCS: 99202 ==

== ENCOUNTER 2024-10-23 08:26 | Outpatient (AMB) | payer OTHER, SELFPAY ==
--- NOTE | 2024-10-23 08:29 | MHC.OFFVIS ---
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 [facility] Medical History H/O splenomegaly Fatty liver Obstructive sleep apnea syndrome Elevated alkaline phosphatase level GERD (gastroesophageal reflux disease) Lumbar disc disease Proteinuria Type 2 diabetes mellitus with other diabetic kidney complication Hyperlipidemia LDL goal <100 Obesity due to excess calories Surgical History Hx of removal of cyst Family History Father CVD (cardiovascular disease) Diabetes mellitus Mother Mental health disorder Sister Substance use disorder Sister No problems noted. Son No problems noted. Daughter No problems noted. Daughter No problems noted. Social History Household Members: Children Housing: House Alcohol intake: current Alcohol intake frequency: does not drink Patient Tobacco Use Status: Former Tobacco user e-Cigarette/Vaping Use: Never Used Second Hand Smoke Exposure: No Substance Use Type: Marijuana service: No Current occupational status: employed Current occupation: [employer] Current occupational exposures/hazards: No Cognitive needs: No Hearing needs: No Vision needs: No Physical Exam Vital Signs: BMI result Body Mass Index 39.1 Office Procedures Excision Details: He was in a right lateral decubitus position. The largest cyst was on the left parieto-occipital area. This was about a 2.3 cm cystic induration. This area was prepped and draped. Lidocaine 1% was used for local anesthesia. I excised this cyst using a blade 15. The incision was carried down through the full-thickness of the skin all the way down through the subcutaneous layer to excise this entire indurated area. This was deep and large and therefore had significant bleeding. I closed this with multiple nylon 3-0 simple interrupted sutures. He tolerated the procedure well. A Band-Aid was applied. Blood loss was about 50 cc. In view of the large amounts of bleeding as well as the large amount of lidocaine that we had to use, I told him that it may be best to hold off on removing the other 2 scalp cysts to some other time. He was agreeable to this. [id number]-[id number] scalp/neck/hands/feet/genitalia 2.1cm-3cm Procedure code (CPT) selection complete Assessment & Plan Assessment & Plan (1) Scalp cyst: Code(s): L72.9 - Follicular cyst of the skin and subcutaneous tissue, unspecified Category: Medical Plan: Excision of 1 cyst which was the largest was done. He was given wound care instructions. I will see him in the office for removal sutures. Coding Level of Care Code Procedure Only Diagnoses Scalp cyst L72.9 CPT Codes Scalp/Neck/Hands/Feet/Genetalia - CPT: 39539-Lrplzqnu scalp/neck/hands/feet/genitalia 2.1cm-3cm ([id number])
[2024-10-23 08:30] VITALS: BMI 39.1
--- OUTSIDE RECORDS SUMMARY | 2024-10-23 08:35 | XMS_ITS | Data Portability ---
Author Organization [facility], [address] Address [address] [place] [address] Care Team Providers Care Bingo Attendant Name Role Phone [facility] Primary Care Provider [phone] Assessment No assessment recorded. Plan of Treatment Reminders Order Date Submit Date Provider Last Modified By Organization Details Last Modified Time Details Appointments None recorded. Lab None recorded. Referral None recorded. Procedures None recorded. Surgeries None recorded. Imaging XR, elbow, 3 or more view - Right elbow pain. no trauma . painful range of motion , rule out any fracture 2021 022 [place] _[facility], [address] [place] [address], [address], 11:20:50 Medication Orders ibuprofen 800 mg tablet 2021 022 [facility], [address] [place] [address], [address], 09:04:37 Patient TargetsNo targets recorded. Patient Instructions Encounter Date Encounter Id Patient Instructions Last Modified By Organization Details Last Modified Time 08/26/2022 [id number] learning about rice (rest, ice, compression, and [...] ation record ed. [email or web address] [id number] [facility] [place], [address], 08/26/2022 14:35:09 Result Notes None recorded. Problems Name Problem SNOMED Code Status Onset Date Resolution Date Notes Provider Name and Address Organization Details Recorded Time Diabetes mellitus 06909462 Active 2021 RODRIGO NELDA null, [place] - [facility] 2 08:36:07 Hypertensive disorder 73498768 Active 2021 RODRIGO NELDA null, PA - [facility] 08:36:16 Gastroesophage al reflux disease 692312166 Active 2021 RODRIGO NELDA null, PA - [facility] 08:36:30 Problem Notes None recorded. Procedures Surgical History None recorded. Imaging Results Imaging Date Name Status LastModified by Organiz ation Details LastModified Time 08/26/2022 XR, elbow, 3 or more view completed [id number] [facility] [place], [address], 08/26/2022 14:35:09 Procedure Notes None recorded. Medical Equipment None Reported. Allergies Allergen ID Allergen Name Allergen Category Reaction Reaction Severity Criticality Documentation Date Start Date Code Code System Note Provider Name and Address Organization Details Recorded Time 16507 Substance with sulfonami de structure and antibacte rial mechanism of action (substanc e) medicatio n hives Not available Not available 08/26/2022 49281 8003 SNOMED RODRIGO NELDA null, PA - [facility] 08:34:36 52521 Trulicity medicatio n other Not available Not available 08/26/2022 87310 96 RxNorm RODRIGO NELDA null, PA - [...] Last Updated DateTime 175.26 cm 35.4 kg/m2 316906. 17 g 10 96 % 96 % 97 /min 16 /min 98.2 [degF] 147 mm[Hg] 91 mm[Hg] RODRIGO LUTZ PA - [facility] 08:38:08 Social History Question Answer Notes LastModified [...] Qasim Ramirez NP [address] [place], [address], [place] - [facility] 08/26/2022 14:35:44 Past Encounters Encounter ID Performer Location Encounter Start Date Encounter Closed Date Diagnosis/Indication Diagnosis SNOMED-CT Code Diagnosis ICD10 Code Diagnosis Note [id number] [address] [place] [address] 10/05/2020 18:43:45 10/05/2020 19:34:23 [id number] [address] [facility] [place] [address] 11/10/2015 19:30:10 11/10/2015 20:42:47 [id number] Qsaim Ramirez NP [address] [facility] [address] 08/26/2022 08:06:32 08/26/2022 09:10:50 Tendinitis of right elbow [id number] 4427266 M67.823 Sprain of right elbow. will screen for any fracture. Ricardo wrap applied for comfort . take medication as prescribed . follow up as needed after X-ray right elbow. Administra tion of influenza vaccine 05402303 Z23 Health Concerns Section Related Observation LastModified by Organization Detai ls LastModified Time None Recorded Concern Status LastModified by Organization Details LastModified Time None Recorded Advance Directives Directive None Recorded Payers Encounter Date Sequence Insurance Name Policy Number Policy Novoa Covered Member ID Novoa Member ID Guarantor Name 10/05/2020 1 [facility] [employer] [place] [facility] Alexis gleason [id number] Alexis Rudd 08/26/2022 1 [facility] [employer] [place] [facility] Alexis mercadot [id number] Alexis Rudd Notes Date Note Type Note Provider Name and Address Organization Details Recorded Time 08/26/2022 text/html Forearm / WristReported bypatient.Notes:mookie n right elbow x 2 days. 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 Qasim Ramirez NP [address] [place], [address], [place] - [facility] 08/26/2022 14:35:57
--- OUTSIDE RECORDS SUMMARY | 2024-10-23 08:35 | XMS_ITS | Encounter Summary ---
Author Organization [facility] Address [address] [place] [address] Care Team Providers Care Sports Director Name Role Phone Steven Simpson MD Primary Care Provider [phone] Encounter Details Date Type Department Care Team Description 03/20/2017 Cement Breaker Report Medical Records [address] [place] [address] Abstract, Provider Social History Tobacco Use Types [...] filedocumented in this encounter Care Teams Sports Director Relationship Specialty Start Date End Date Steven Simpson MD [address] [place] [address] PCP - General Internal Medicine 01/08/12 documented as of this encounter
--- OUTSIDE RECORDS SUMMARY | 2024-10-23 08:35 | XMS_ITS | Encounter Summary ---
Author Organization [facility] Address [address] [place] [address] Care Team Providers Care Summer Internship Name Role Phone Steven Simpson MD Primary Care Provider + [phone] Encounter Details Date Type Department Care Team Description 06/09/2014 Telephone Eye Services-[address] [address] Sahil Celaya, ERINN Social History Tobacco Use Types Packs/Day Years Used Date Smoking Tobacco: Never Smokeless Tobacco: Never Alcohol Use Standard Drinks/Week Comments Not Asked 0 (1 standard drink = 0.6 oz pur e alcohol) Sex Assigned at Date Recorded Not on file documented as of this encounter Miscellaneous Notes * Telephone Encounter - Sahil Celaya OD - 06/09/2014 9:17 AM EDT Please call [facility] and make sure the pt went the appt on 07/28/14 and document documented in this encounter Plan of Treatment Not on file documented as of this encounter Visit Diagnoses Not on filedocumented in this encounter Care Teams Summer Internship Relationship Specialty Start Date End Date Steven iSmpson MD [address] [place] [address] PCP - General Internal Medicine 01/08/12 documented as of this encounter
--- OUTSIDE RECORDS SUMMARY | 2024-10-23 08:35 | XMS_ITS | Encounter Summary ---
Author Organization [facility] Address [address] [place] [address] Care Team Providers Care Assistant Loan Processor Name Role Phone Steven Simpson MD Primary Care Provider + [phone] Reason for Visit * Reason Onset Date Comments Aws Software Development Engineer Feedback 07/24/2017 [facility] Encounter Details Date Type Department Care Team Description 07/24/2017 Telephone Adult Medicine [facility] [address] [place] [address] [phone] Steven Simpson MD [address] [place] [phone] Aws Software Development Engineer Feedback ( [facility]) Social History Tobacco Use Types Packs/Day Years Used Date Smoking Tobacco: Never Smokeless Tobacco: Never Alcohol Use Standard Drinks/Week Comments Not Asked 0 (1 standard drink = 0.6 oz pur e alcohol) Sex Assigned at Date Recorded Not on file documented as of this encounter Miscellaneous Notes * Telephone Encounter - Esha Wagner - 07/24/2017 3:06 PM EST Marina Trace #: [id number] Subscriber: CHARLI ZAIDI Submitter : STEVEN SIMPSON Submitter Type: Provider : 1985 Referral (#[id number]) Specialty Care Review Type: Initial Certification Status : Certified in total Service Type : Medical Care Place Of Service : Office Visits : 6 Service Date : 07/24/2017-07/24/2018 Service Providers Provider Name ID Provider Type Specialty MD DEVIN MACK NPI : [id number] Performing Specialist * Telephone Encounter - Yuki Elam - 07/24/2017 2:55 PM EST What insurance does the patient have today? bcbs Effective 06/10/09: BCBS will not retro referral requests over 90 days. If request is for this please instruct patient to call the 800# on their insurance card to appeal. Do not submit a request. Referrals cannot be processed if the insurance is not accurate. If the insurance listed above in red is NO BILLING INFORMATION FOUND FOR THIS ENCOUTNER The patients correct insurance must be obtained and registered in [facility] or their referral can not be processed. Is this a retro request? NO. If yes for what date of service do you need the retro referral? N/A Who is calling to request this referral? The patient If the caller is not the patient, what is their name? N/A Ask the patient WHO referred them to this specialty: Patient self referred FIRST and LAST NAME of SPECIALIST PATIENT is seeing: [facility] What specialty is this? urology DIAGNOSIS Patient is being seen for (Not a body part or a procedure): vasectomy Have you seen this SPECIALIST for this PROBLEM/DX before?NO If YES, when: Have you checked REVIEW or the APPT DESK to see if this referral has already been done or has visits left? YES Is this visit:Initial Visit Address of Specialist:[address] [place] [address] Phone # of Specialist:[phone] Fax #: (if applicable):[phone] Does patient have an appointment scheduled?: YES Date of appointment- (including a retro-request): 07/24/17 Is this appointment related to: Surgery documented in this encounter Plan of Treatment Not on file documented as of this encounter Visit Diagnoses Not on filedocumented in this encounter Care Teams Assistant Loan Processor Relationship Specialty Start Date End Date Steven Simpson MD [address] [place] [address] PCP - General Internal Medicine 01/08/12 documented as of this encounter
--- OUTSIDE RECORDS SUMMARY | 2024-10-23 08:35 | XMS_ITS | Clinical Summary ---
Author Organization [facility] Address [address] [place] [address] Care Team Providers Care Medicare Contact Specialist Name Role Phone Steven Simpson MD Primary Care Provider [phone] Allergies Active Allergy Reactions Severity Noted Date [...] just unsure what to do Educational Resources [place] Diabetes Association (www.diabetes.org) Centers for Disease Control [...] Medical History Relation Name Comments Blindness Father [place] Father dm type I Father Cataract Negative [...] RISK PATIENTS (#2) 02/02/[birth year]48 02/15/2016 Care Teams Medicare Contact Specialist Relationship Specialty Start Date End Date Steven Simpson MD [address] [place] [address] PCP - General Internal Medicine 01/08/12
--- OUTSIDE RECORDS SUMMARY | 2024-10-23 08:35 | XMS_ITS | Encounter Summary ---
Author Organization [facility] Address [address] [place] [address] Care Team Providers Care Roof Mechanic Name Role Phone Steven Simpson MD Primary Care Provider [phone] Encounter Details Date Type Department Care Team Description 11/06/2018 Release of Information Medical Records [address] [place] [address] Abstract, Provider Social History Tobacco Use Types [...] on filedocumented in this encounter Care Teams Roof Mechanic Relationship Specialty Start Date End Date Steven Simpson MD [address] [place] [address] PCP - General Internal Medicine 01/08/12 documented as of this encounter
--- OUTSIDE RECORDS SUMMARY | 2024-10-23 08:35 | XMS_ITS | Encounter Summary ---
Author Organization [facility] Address [address] [place] [address] Care Team Providers Care Graphics Editor Name Role Phone tSeven Simpson MD Primary Care Provider [phone] Encounter Details Date Type Department Care Team Description 07/09/2012 Transfer Records Medical Records [address] [place] [address] Abstract, Provider Social History Tobacco Use Types [...] on filedocumented in this encounter Care Teams Graphics Editor Relationship Specialty Start Date End Date Steven Simpson MD [address] [place] [address] PCP - General Internal Medicine 01/08/12 documented as of this encounter
--- OUTSIDE RECORDS SUMMARY | 2024-10-23 08:35 | XMS_ITS | Encounter Summary ---
Author Organization [facility] Address [address] [facility] [address] Care Team Providers Care Radio Mechanic Helper Name Role Phone Steven Simspon MD Primary Care Provider [phone] Encounter Details Date Type Department Care Team Description 03/04/2012 Release of Information Medical Records [address] [place] [address] Abstract, Provider Social History Tobacco Use Types [...] on filedocumented in this encounter Care Teams Radio Mechanic Helper Relationship Specialty Start Date End Date Steven Simpson MD [address] [place] [address] PCP - General Internal Medicine 01/08/12 documented as of this encounter
== END 2024-10-23 09:20 | disposition home or self-care (01) ==
PROVIDERS: PCP Nurse Practitioner Family; Visit Provider Surgery
DX: L72.11 Pilar cyst (principal)
CPT/HCPCS: 11423

== ENCOUNTER 2024-10-23 08:26 | Outpatient (REF) | payer OTHER, SELFPAY | END 2024-10-23 08:27 | disposition home or self-care (01) | LOC: HO.LNP 08:26 | PROVIDERS: PCP Nurse Practitioner Family; Visit Provider Surgery | DX: L72.9 Follicular cyst of the skin and subcutaneous tissue, unspecified (principal) | CPT/HCPCS: 11423; 88304 ==

== ENCOUNTER 2024-11-06 15:31 | Outpatient (AMB) | payer OTHER, SELFPAY ==
--- NOTE | 2024-11-06 15:32 | A.OFFVIS_ITS ---
Intake Visit Reasons: s/p excision Follicular cyst of skin x3 Intake Note: This patient presents for suture removal status post excision scalp cyst. Pt c/o; reports no concerns at this time. Aids Social Worker Required: No Accompanied by: Self / Same As Patient Allergies Sulfa (Sulfonamide Antibiotics) [SULFA (SULFONAMIDE ANTIBIOTICS)] Allergy (Unknown, Verified 11/06/24 15:35) HIVES semaglutide [From Ozempic] Adverse Reaction (Mild, Verified 11/06/24 15:35) gi issues trulicty Adverse Reaction (Mild, Uncoded 11/06/24 15:35) gi issues HPI HPI s/p excision Follicular cyst of skin x3: Details: He underwent excision of multiple cysts last October 23 under local anesthesia here in the office. He tolerated the procedure well currently denies significant complaints. [facility] Medical History H/O splenomegaly Fatty liver Obstructive sleep apnea syndrome Elevated alkaline phosphatase level GERD (gastroesophageal reflux disease) Lumbar disc disease Proteinuria Type 2 diabetes mellitus with other diabetic kidney complication Hyperlipidemia LDL goal <100 Obesity due to excess calories Surgical History History of removal of cyst (~10/23/24) Hx of removal of cyst Family History Father CVD (cardiovascular disease) Diabetes mellitus Mother Mental health disorder Sister Substance use disorder Sister No problems noted. Son No problems noted. Daughter No problems noted. Daughter No problems noted. Social History Household Members: Children Housing: House Alcohol intake: current Alcohol intake frequency: does not drink Patient Tobacco Use Status: Former Tobacco user e-Cigarette/Vaping Use: Never Used Second Hand Smoke Exposure: No Substance Use Type: Marijuana service: No Current occupational status: employed Current occupation: [employer] Current occupational exposures/hazards: No Cognitive needs: No Hearing needs: No Vision needs: No Review of Systems Const Denies chills and Denies fever(s) Physical Exam Const Other: Looks well General: comfortable and no acute distress HEENT Other: Excision site on the scalp on the left side was healing well with no signs of infection, sutures intact Assessment & Plan Assessment & Plan (1) Scalp cyst: Code(s): L72.9 - Follicular cyst of the skin and subcutaneous tissue, unspecified Category: Medical Plan: Status post excision. His excision site is well healed. I removed his sutures. The wound edges remained well apposed. His path report confirms a Pilar cyst. He can follow up on a p.r.n. basis. Coding Level of Care Code Global (75276) Diagnoses Scalp cyst L72.9
--- OUTSIDE RECORDS SUMMARY | 2024-11-06 18:53 | XMS_ITS | Data Portability ---
Author Organization [facility], [address] Address [address] [place] [address] Care Team Providers Care Spool Salvager Name Role Phone [facility] Primary Care Provider Assessment No assessment [...] , rule out any fracture 2021 022 [place] _[facility], [address] [place] [address], [address], 11:20:50 Medication Orders ibuprofen 800 mg tablet 2021 022 [email or web address], [address] [place] [address], [address], 09:04:37 Patient TargetsNo targets recorded. Patient Instructions Encounter Date Encounter Id Patient Instructions Last Modified By Organization Details Last Modified Time 08/26/2022 [id number] learning about rice (rest, ice, compression, and [...] ation record ed. [email or web address] [id number] [place], [address], 08/26/2022 14:35:09 Result Notes None recorded. Problems Name Problem SNOMED Code Status Onset Date Resolution Date Notes Provider Name and Address Organization Details Recorded Time Diabetes mellitus 98285275 Active 2021 RODRIGO NELDA null, PA - [facility] 08:36:07 Hypertensive disorder 80173195 Active 2021 RODRIGO NELDA null, PA - [facility] 08:36:16 Gastroesophage al reflux disease 252205693 Active 2021 RODRIGO NELDA null, PA - [facility] 08:36:30 Problem Notes None recorded. Procedures Surgical History None recorded. Imaging Results Imaging Date Name Status LastModified by Organiz ation Details LastModified Time 08/26/2022 XR, elbow, 3 or more view completed [id number] [place], [address], 08/26/2022 14:35:09 Procedure Notes None recorded. Medical Equipment None Reported. Allergies Allergen ID Allergen Name Allergen Category Reaction Reaction Severity Criticality Documentation Date Start Date Code Code System Note Provider Name and Address Organization Details Recorded Time 17577 Substance with sulfonami de structure and antibacte rial mechanism of action (substanc e) medicatio n hives Not available Not available 08/26/2022 33264 8003 SNOMED RODRIGO NELDA null, PA - [facility] 08:34:36 19547 Trulicity medicatio n other Not available Not available 08/26/2022 46585 96 RxNorm RODRIGO NELDA null, PA - [...] Last Updated DateTime 175.26 cm 35.4 kg/m2 702288. 17 g 10 96 % 96 % 97 /min 16 /min 98.2 [degF] 147 mm[Hg] 91 mm[Hg] RODRIGO LUTZ PA - [facility] 08:38:08 Social History Question Answer Notes LastModified [...] PF 08/26/2022 completed Qasim Ramirez NP [address] [place], [address], [place] - [facility] 08/26/2022 14:35:44 Past Encounters Encounter ID Performer Location Encounter Start Date Encounter Closed Date Diagnosis/Indication Diagnosis SNOMED-CT Code Diagnosis ICD10 Code Diagnosis Note [id number] [address] [facility] [place] [address] 10/05/2020 18:43:45 10/05/2020 19:34:23 [id number] [address] [facility] [place] [address] 11/10/2015 19:30:10 11/10/2015 20:42:47 [id number] Qasim Ramirez NP [address] [facility] [place] [address] 08/26/2022 08:06:32 08/26/2022 09:10:50 Tendinitis of right elbow [id number] 5752851 M67.823 Sprain of right elbow. will screen for any fracture. Ricardo wrap applied for comfort . take medication as prescribed . follow up as needed after X-ray right elbow. Administra tion of influenza vaccine 60502385 Z23 Health Concerns Section Related Observation LastModified by Organization Detai ls LastModified Time None Recorded Concern Status LastModified by Organization Details LastModified Time None Recorded Advance Directives Directive None Recorded Payers Encounter Date Sequence Insurance Name Policy Number Policy Novoa Covered Member ID Novoa Member ID Guarantor Name 10/05/2020 1 [facility] [employer] [place] [place] [facility] Alexis gleason [id number] Alexis Rudd 08/26/2022 1 [facility] [employer] ([facility] Alexis mercadot [id number] Alexis Rudd Notes Date Note Type Note Provider Name and Address Organization Details Recorded Time 08/26/2022 text/html Forearm / WristReported bypatient.Notes:mookie n right elbow x 2 days. 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 Qasim Ramirez NP [address] [place], [address], [place] - [facility] 08/26/2022 14:35:57
--- OUTSIDE RECORDS SUMMARY | 2024-11-06 18:53 | XMS_ITS | Encounter Summary ---
Author Organization [facility] Address [address] [place] [address] Care Team Providers Care Tire Spotter Name Role Phone Steven Simpson MD Primary Care Provider + [phone] Reason for Visit * Reason Onset Date Comments er follow up 04/04/2018 [facility] Encounter Details Date Type Department Care Team Description 04/04/2018 Telephone Adult Medicine [facility] [address] [place] [phone] Steven Simpson MD [address] [place] [phone] er follow up ([facility]) Social History Tobacco Use Types Packs/Day Years [...] [facility] patient was treated at: [facility] Date of visit: 04/01/18 Was this only [...] on filedocumented in this encounter Care Teams Tire Spotter Relationship Specialty Start Date End Date Steven Simpson MD [address] [place] [address] PCP - General Internal Medicine 01/08/12 documented as of this encounter
--- OUTSIDE RECORDS SUMMARY | 2024-11-06 18:53 | XMS_ITS | Encounter Summary ---
Author Organization [facility] Address [address] [place] [address] Care Team Providers Care Server Support Technician Name Role Phone Steven Simpson MD Primary Care Provider [phone] Encounter Details Date Type Department Care Team Description 07/09/2012 Transfer Records Medical Records [address] [place] [address] Abstract, Provider Social History Tobacco Use Types [...] on filedocumented in this encounter Care Teams Server Support Technician Relationship Specialty Start Date End Date Steven Simpson MD [address] [place] [address] PCP - General Internal Medicine 01/08/12 documented as of this encounter
--- OUTSIDE RECORDS SUMMARY | 2024-11-06 18:53 | XMS_ITS | Encounter Summary ---
Author Organization [facility] Address [address] [place] [address] Care Team Providers Care Space Systems Operations Craftsman Name Role Phone Steven Simpson MD Primary Care Provider + [phone] Encounter Details Date Type Department Care Team Description 06/09/2014 Telephone Eye Services-[address] [address] Sahil Celaya, ERINN Social History Tobacco Use [...] - 06/09/2014 9:17 AM EDT Please call [facility] and make sure the pt went the appt on 07/28/14 and document documented in this encounter Plan of Treatment Not on file documented as of this encounter Visit Diagnoses Not on filedocumented in this encounter Care Teams Space Systems Operations Craftsman Relationship Specialty Start Date End Date Steven Simpson MD [address] [place] [address] PCP - General Internal Medicine 01/08/12 documented as of this encounter
--- OUTSIDE RECORDS SUMMARY | 2024-11-06 18:54 | XMS_ITS | Clinical Summary ---
Author Organization [facility] Address [address] [place] [address] Care Team Providers Care Burglar Alarm Mechanic Name Role Phone Steven Simpson MD Primary Care Provider [phone] Allergies Active Allergy Reactions Severity Noted Date [...] just unsure what to do Educational Resources [place] [employer] (www.diabetes.org) Centers for Disease Control [...] Medical History Relation Name Comments Blindness Father [place] Father dm type I Father Cataract Negative [...] RISK PATIENTS (#2) 02/02/2048 02/15/2016 Care Teams Burglar Alarm Mechanic Relationship Specialty Start Date End Date Steven Simpson MD [address] [place] [id number] PCP - General Internal Medicine 01/08/12
--- OUTSIDE RECORDS SUMMARY | 2024-11-06 18:54 | XMS_ITS | Encounter Summary ---
Author Organization [facility] Address [address] [place] [address] Care Team Providers Care Truck Shop Mechanic Name Role Phone Steven Simpson MD Primary Care Provider [phone] Encounter Details Date Type Department Care Team Description 11/06/2018 Release of Information Medical Records [address] [place] [id number] Abstract, Provider Social History Tobacco Use Types [...] on filedocumented in this encounter Care Teams Truck Shop Mechanic Relationship Specialty Start Date End Date Steven Simpson MD [address] [place] [id number] PCP - General Internal Medicine 01/08/12 documented as of this encounter
== END 2024-11-06 15:41 | disposition home or self-care (01) ==
PROVIDERS: PCP Nurse Practitioner Family; Visit Provider Surgery
DX: L72.9 Follicular cyst of the skin and subcutaneous tissue, unspecified (principal)
CPT/HCPCS: 99024

== ENCOUNTER → 2024-11-06 15:31 | Outpatient (BNVA) | payer OTHER, SELFPAY | PROVIDERS: PCP Nurse Practitioner Family; Visit Provider Surgery | DX: L72.9 Follicular cyst of the skin and subcutaneous tissue, unspecified (principal) | CPT/HCPCS: 99212 ==

== ENCOUNTER 2025-01-26 13:54 | Outpatient (AMB) | payer OTHER, SELFPAY ==
[2025-01-26 13:56] VITALS: BP 126/76; PULSE 97; TEMP 36.6; O2SAT 98; BMI 39.4
--- NOTE | 2025-01-26 13:56 | MHC.PC.OV ---
Vital Signs 01/26/25 13:56 Height 5 ft 8 in Weight 259 lb BMI 39.4 BP 126/76 Blood Pressure Location Rt brachial Position Sitting Pulse 97 Pulse Source Pulse Oximeter Temp 97.9 F Temp Source Oral Pulse Oximetry (%) 98 Oxygen Delivery Method Room Air Intake Visit Reasons: PE Fashion Director Required: No Accompanied by: Self / Same As Patient Allergies Sulfa (Sulfonamide Antibiotics) [SULFA (SULFONAMIDE ANTIBIOTICS)] Allergy (Unknown, Verified 01/26/25 14:33) HIVES semaglutide [From Ozempic] Adverse Reaction (Mild, Verified 01/26/25 14:33) gi issues trulicty Adverse Reaction (Mild, Uncoded 01/26/25 14:33) gi issues Medication List - Last Reconciled 01/26/25 by LEONILA Herrera atorvastatin 40 mg PO DAILY blood sugar diagnostic TID testing, FREESTYLE LITE STRIPS blood-glucose meter (FreeStyle Lite Meter kit) As directed 3 x/day blood-glucose meter As directed empagliflozin (Jardiance) 25 mg PO DAILY insulin glargine (Lantus Solostar U-100 Insulin) 80 units (0.8 mL) subcut DAILY lancets As directed lisinopril 10 mg PO DAILY metformin 500 mg PO BID omeprazole 40 mg PO DAILY sildenafil 25 mg PO DAILY PRN tirzepatide 2.5 mg (0.5 mL) subcut QWEEK Tobacco use date assessed: 09/29/24 Dental Screening Dental Screen Date: 09/29/24 HPI PE HPI Details History of Present Illness The patient is a 39-year-old male presenting for a physical examination and management of diabetes mellitus. As a diabetic, his Hemoglobin A1c was noted to be elevated at 9.4, indicating poor glycemic control. He reports being asymptomatic concerning chest pain, dyspnea, abdominal issues, or neurological symptoms typically associated with diabetes complications. Despite a lack of hypoglycemic episodes, the patient is well-versed in managing low blood sugar levels. No psychosocial distress was reported, such as suicidal or homicidal thoughts. The patient is currently on an KASEY inhibitor and insulin therapy, with a noted concern for microalbuminuria suggesting renal monitoring is necessary. Adjustments to his medication regimen, including Lantus and Mounjaro, are part of an ongoing effort to manage his diabetes effectively, although past adjustments have led to nausea without other significant issues. eye exam is utd Health Maintenance - Adjusted insulin therapy: Increase Lantus from 72 units to 80 units. - Continue monitoring glycemic control. - Refer to belt loop maker for assessment of microalbuminuria. - Discussion of potential future adjustment in Mounjaro dosage. Social History Review of Systems - Cardiovascular: Denies chest pain. - Pulmonary: Denies dyspnea. - Gastrointestinal: Denies abdominal pain, constipation, diarrhea, blood in stool. - Psychological: Denies suicidal ideation, homicidal ideation. - General: Denies fevers, chills. -denies any polyuria, polydipsia, or neuropathy Physical Exam General: Cooperative, healthy appearing, comfortable, no acute distress and well developed, obese Orientation: Patient oriented x3 Limitations: No limitations Head: Normal to inspection Ears: Hearing grossly normal bilaterally Nose: Normal external nose present Face and sinus: Normal facial exam Eyes: Appearance normal, both eyes and all related structures Neck: Normal visual inspection and Yes full ROM Respiratory: Normal respiratory effort and able to speak in complete sentences. Clear to auscultation bilaterally Cardiovascular: Regular rate and rhythm. Normal S1 and S2 GI: Normal to inspection. Soft to palpation and nontender Skin: No rashes or lesions noted Neuro: Patient oriented x3 Extremities: Feet are intact. Positive sensation with use of monofilament. Results - Labs: Hemoglobin A1c at 9.4. Plan An increase in Lantus dosage is planned to manage the patient's diabetes more effectively. Due to poor glycemic control reflected in a high Hemoglobin A1c, increasing from 72 units to 80 units is justified, with awareness of hypoglycemia risk. He is also referred to a belt loop maker for the management of microalbuminuria, and continued use of KASEY inhibitors is endorsed for renal protection. Insights from prior medication adjustment experiences will guide our future Mounjaro dosage adjustments. Discussion Notes I discussed with the patient the elevated Hemoglobin A1c value of 9.4, indicating poor control of diabetes, and explored the decision to increase his Lantus dose. We reviewed the importance of monitoring for hypoglycemia and his demonstrated understanding of corrective measures. I also explained the need for a belt loop maker consultation due to microalbuminuria. The patient was informed about potential future adjustments of Mounjaro due to previously experienced nausea. Follow-up plans include monitoring his response to treatment changes. Patient Instructions - Monitor blood glucose levels closely. - Report any symptoms of low blood sugar. - Follow up with belt loop maker as referred. - Expect adjustments in medications, including Mounjaro, in future visits based on response. [facility] Medical History H/O splenomegaly Fatty liver Obstructive sleep apnea syndrome Elevated alkaline phosphatase level GERD (gastroesophageal reflux disease) Lumbar disc disease Proteinuria Type 2 diabetes mellitus with other diabetic kidney complication Hyperlipidemia LDL goal <100 Obesity due to excess calories Surgical History History of removal of cyst (~10/23/24) Hx of removal of cyst Family History Father CVD (cardiovascular disease) Diabetes mellitus Mother Mental health disorder Sister Substance use disorder Sister No problems noted. Son No problems noted. Daughter No problems noted. Daughter No problems noted. Social History Household Members: Children Housing: House Alcohol intake: current Alcohol intake frequency: does not drink Patient Tobacco Use Status: Former Tobacco user e-Cigarette/Vaping Use: Never Used Second Hand Smoke Exposure: No Substance Use Type: Marijuana service: No Current occupational status: employed Current occupation: [employer] Current occupational exposures/hazards: No Cognitive needs: No Hearing needs: No Vision needs: No Questionnaire Thrive Questionnaire Date Thrive assessed: 01/26/25 I am a: Patient What is your living situation today?: I have a steady place to live Within the past 12 months, did the food you bought not last and you didn't have the money to get more?: Never true Within the past 12 months, did you worry whether your food would run out before you got money to buy more?: Never true Do you have trouble paying for medicines?: No Do you have trouble getting transportation to medical appointments?: No Do you have trouble paying your heating and electricity bill?: No Do you have trouble taking care of your child, family member or friend?: No Do you have trouble with day-to-day activities such as bathing, preparing meals, shopping, managing finances, etc.?: No Are you currently unemployed and looking for a job?: No Are you interested in more education?: No Please select the resources that you would like help with: None Currently or been in a relationship where the following occur: No concerns reported THRIVE Score: 0 RAY-7 AMB Questionnaire RAY-7 Date RAY - 7 assessed: 09/29/24 Source: Developed by Drs. Venkat Hilliard, Sallie Murphy, Jarett Alvarado and colleagues, with an educational ailyn from [employer]. Physical exam (Primary Care) Vital Signs: Last Vital Signs Temp 97.9 F 01/26/25 13:56 Pulse 97 01/26/25 13:56 BP 126/76 01/26/25 13:56 Pulse Ox 98 01/26/25 13:56 Oxygen Delivery Method Room Air 01/26/25 13:56 BMI result Body Mass Index 39.4 Tobacco/Smoking Status: Tobacco use Status Tobacco use date assessed 09/29/24 01/26/25 13:57 Patient Tobacco Use Status Former Tobacco user 01/26/25 13:57 e-Cigarette/Vaping Use Never Used 01/26/25 13:57 Thrive Assessment: Date of Thrive Assessment Date Thrive assessed 01/26/25 01/26/25 13:57 Currently or been in a relationship where the following occur: No concerns reported Results AMB Hemoglobin A1c AMB Hemoglobin A1c 9.4 % Last Edit by Nahid Odonnell CMA on 01/26/25 14:23 Coding Level of Care Code Est Pt Prev Care 40-64y(37145) Diagnoses Type 2 diabetes mellitus with hyperglycemia, with long-term current use of insulin E11.65; Z79.4 Diabetes mellitus detention insulin use: with orthopedic designer use Proteinuria, unspecified type R80.9 Proteinuria type: unspecified Assessment & Plan Assessment & Plan (1) Type 2 diabetes mellitus with hyperglycemia: Code(s): E11.65 - Type 2 diabetes mellitus with hyperglycemia Category: Medical Qualifiers: Diabetes mellitus orthopedic designer insulin use: with orthopedic designer use Qualified Code(s): E11.65 - Type 2 diabetes mellitus with hyperglycemia; Z79.4 - framing manager (current) use of insulin (2) Proteinuria: Code(s): R80.9 - Proteinuria, unspecified Category: Medical Qualifiers: Proteinuria type: unspecified Qualified Code(s): R80.9 - Proteinuria, unspecified Plan . Orders: Orders AMB Hemoglobin A1c Today Z13.9 - Encounter for screening, unspecified Referrals Nephrology Referral R80.9 - Proteinuria, unspecified Medications: Changed From insulin glargine (Lantus Solostar U-100 Insulin) 70 units (0.7 mL) subcut DAILY 45 mL 3RF E11.65 - Type 2 diabetes mellitus with hyperglycemia To insulin glargine (Lantus Solostar U-100 Insulin) 72 units (0.72 mL) subcut DAILY 45 mL 3RF E11.65 - Type 2 diabetes mellitus with hyperglycemia From insulin glargine (Lantus Solostar U-100 Insulin) 72 units (0.72 mL) subcut DAILY 45 mL 3RF E11.65 - Type 2 diabetes mellitus with hyperglycemia To insulin glargine (Lantus Solostar U-100 Insulin) 80 units (0.8 mL) subcut DAILY 45 mL 3RF E11.65 - Type 2 diabetes mellitus with hyperglycemia
--- OUTSIDE RECORDS SUMMARY | 2025-01-26 13:56 | XMS_ITS | Data Portability ---
Author Organization [facility] [address] Address [address] [place] [address] Care Team Providers Care Packaging Manager Name Role Phone [facility] Primary Care Provider Assessment No assessment recorded. [...] , rule out any fracture 2021 022 [facility], [address] [place] [address], [phone], 11:20:50 Medication Orders ibuprofen 800 mg tablet 2021 022 [facility], [address] [place] [address], [id number], 09:04:37 Patient TargetsNo targets recorded. Patient Instructions Encounter Date Encounter Id Patient Instructions Last Modified By Organization Details Last Modified Time 08/26/2022 [id number] learning about rice (rest, ice, compression, and [...] ation record ed. [id number] [place], [address], 08/26/2022 14:35:09 Result Notes None recorded. Problems Name Problem SNOMED Code Status Onset Date Resolution Date Notes Provider Name and Address Organization Details Recorded Time Diabetes mellitus 32587907 Active 2021 RODRIGO NELDA null, [place] - [facility] 08:36:07 Hypertensive disorder 40250935 Active 2021 RODRIGO NELDA null, [place] - [facility] 08:36:16 Gastroesophage al reflux disease 863762364 Active 2021 RODRIGO NELDA null, [place] - [facility] 08:36:30 Problem Notes None recorded. Procedures Surgical History None recorded. Imaging Results Imaging Date Name Status LastModified by Organiz ation Details LastModified Time 08/26/2022 XR, elbow, 3 or more view completed [id number] [place], [address], 08/26/2022 14:35:09 Procedure Notes None recorded. Medical Equipment None Reported. Allergies Allergen ID Allergen Name Allergen Category Reaction Reaction Severity Criticality Documentation Date Start Date Code Code System Note Provider Name and Address Organization Details Recorded Time 25749 Substance with sulfonami de structure and antibacte rial mechanism of action (substanc e) medicatio n hives Not available Not available 08/26/2022 78533 8003 SNOMED RODRIGO NELDA null, PA - [facility] 08:34:36 42044 Trulicity medicatio n other Not available Not available 08/26/2022 36684 96 RxNorm RODRIGO NELDA null, PA - [...] height Body mass index (BMI) Body weight Oxygen saturation Oxygen saturation in Arterial blood by Pulse oximetry Heart rate Respiratory rate Body temperature Systolic blood pressure Diastolic blood pressure Provider Name and Address Organization Details Last Updated DateTime 175.26 cm 35.4 kg/m2 719920. 17 g 96 % 96 % 97 /min 16 /min 98.2 [degF] 147 mm[Hg] 91 mm[Hg] RODRIGO NELDA PA [facility] 08:38:08 Social History Question Answer Notes LastModified by [employer] Details LastModified Time Tobacco Smoking Status Never Smoker RODRIGO NELDACODY de, [place] - [facility] 08/26/2022 08:37:10 Have You Recently Traveled Abroad? No Information not available 08/26/2022 Sex: Unknown Functional Status Question Answer Note LastModified by [employer] Details LastModified Time Do you use any illicit or recreational drugs? No Information not available 08/26/2022 What is your level of alcohol consumption? Occasional Information not available 08/26/2022 Are you currently employed? Yes Information not available 08/26/2022 Mental Status None recorded. Family History Nothing Reported. Medical History No medical history recorded. Immunizations Vaccine Type Date Status Note Provider Nam e and Address Organization Details Recorded Time Influenza, MDCK, quadrivalent, PF 08/26/2022 completed Qasim Ramirez NP [address] [place], [address], [place] [employer] [facility] 08/26/2022 14:35:44 Past Encounters Encounter ID Performer Location Encounter Start Date Encounter Closed Date Diagnosis/Indication Diagnosis SNOMED-CT Code Diagnosis ICD10 Code Diagnosis Note [id number] [address] [place] [address] 10/05/2020 18:43:45 10/05/2020 19:34:23 [id number] [address] [place] [address] 11/10/2015 19:30:10 11/10/2015 20:42:47 [id number] Qasim Ramirez NP [address] [place] [address] 08/26/2022 08:06:32 08/26/2022 09:10:50 Tendinitis of right elbow [id number] M67.823 Sprain of right elbow. will screen for any fracture. Ricardo wrap applied for comfort . take medication as prescribed . follow up as needed after X-ray right elbow. Administra tion of influenza vaccine [id number] Z23 Health Concerns Section Related Observation LastModified by Organization Detai ls LastModified Time None Recorded Concern Status LastModified by Organization Details LastModified Time None Recorded Advance Directives Directive None Recorded Payers Insurance Date Sequence Insurance Name Policy Number Policy Novoa Covered Member ID Novoa Member ID Guarantor Name 08/26/2022 1 [facility] [place] Alexis Faria-Hans gleason [id number] Alexis Rudd Notes Date Note Type Note Provider Name and Address Organization Details Recorded Time 08/26/2022 text/html Forearm / WristReported bypatient.Notes:mookie n right elbow x 2 days. went to [facility]erry [facility] and since then pain upon movement.have full range of Motion. Qasim Ramirez NP [address] [place], [address], [place] - [facility] 08/26/2022 14:35:57
== END 2025-01-26 14:32 | disposition home or self-care (01) ==
LOC: HO.HMCC 13:55
PROVIDERS: PCP Nurse Practitioner Family; Visit Provider Nurse Practitioner Family
DX: Z00.00 Encounter for general adult medical examination without abnormal findings (principal); E11.65 Type 2 diabetes mellitus with hyperglycemia; Z79.4 Long term (current) use of insulin; R80.9 Proteinuria, unspecified

== ENCOUNTER → 2025-01-26 13:54 | Outpatient (BNVA) | payer OTHER, SELFPAY | PROVIDERS: PCP Nurse Practitioner Family; Visit Provider Nurse Practitioner Family | DX: Z00.00 Encounter for general adult medical examination without abnormal findings (principal); E11.65 Type 2 diabetes mellitus with hyperglycemia; R80.9 Proteinuria, unspecified; Z79.4 Long term (current) use of insulin | CPT/HCPCS: 83036; 99396 ==

== ENCOUNTER 2025-01-30 15:28 | Outpatient (AMB) | payer OTHER, SELFPAY ==
--- NOTE | 2025-01-30 15:34 | HO.NEPHOV_ITS ---
Vital Signs 01/30/25 15:35 Height 5 ft 8 in Weight 253 lb BMI 38.5 BP 130/70 Blood Pressure Location Rt brachial Position Sitting Pulse 92 Pulse Source Pulse Oximeter Pulse Oximetry (%) 96 Oxygen Delivery Method Room Air Intake Visit Reasons: INP: Proteinuria Automotive Assembler Required: No Accompanied by: Self / Same As Patient Allergies Sulfa (Sulfonamide Antibiotics) [SULFA (SULFONAMIDE ANTIBIOTICS)] Allergy (Unknown, Verified 01/30/25 15:36) HIVES semaglutide [From Ozempic] Adverse Reaction (Mild, Verified 01/30/25 15:36) gi issues trulicty Adverse Reaction (Mild, Uncoded 01/26/25 14:33) gi issues Medication List - Last Reconciled 01/30/25 by Claudio Rahman MD atorvastatin 40 mg PO DAILY blood sugar diagnostic TID testing, FREESTYLE LITE STRIPS blood-glucose meter (FreeStyle Lite Meter kit) As directed 3 x/day blood-glucose meter As directed empagliflozin (Jardiance) 25 mg PO DAILY insulin glargine (Lantus Solostar U-100 Insulin) 80 units (0.8 mL) subcut DAILY lancets As directed metformin 500 mg PO BID omeprazole 40 mg PO DAILY sildenafil 25 mg PO DAILY PRN tirzepatide 2.5 mg (0.5 mL) subcut QWEEK HPI Comments Details: 39-year-old male with past medical history of poorly controlled diabetes mellitus on insulin Lantus 80 units, metformin and Jardiance, lisinopril here to establish care for microalbuminuria. 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 Started on Manjauro loosing weight over 5 lb just in the past week Has diabetes since 2011, on insulin since 2018. Poorly controlled, A1c 9.2, on insulin Lantus 80 units daily recently increased the dose. Checks blood pressures at home usually less than 130 mm Hg, on lisinopril 10 mg PFSH Medical History H/O splenomegaly Fatty liver Obstructive sleep apnea syndrome Elevated alkaline phosphatase level GERD (gastroesophageal reflux disease) Lumbar disc disease Proteinuria Type 2 diabetes mellitus with other diabetic kidney complication Hyperlipidemia LDL goal <100 Obesity due to excess calories Surgical History History of removal of cyst (~10/23/24) Hx of removal of cyst Family History Father CVD (cardiovascular disease) Diabetes mellitus Mother Mental health disorder Sister Substance use disorder Sister No problems noted. Son No problems noted. Daughter No problems noted. Daughter No problems noted. Social History Household Members: Children Housing: House Alcohol intake: current Alcohol intake frequency: does not drink Patient Tobacco Use Status: Former Tobacco user e-Cigarette/Vaping Use: Never Used Second Hand Smoke Exposure: No Substance Use Type: Marijuana service: No Current occupational status: employed Current occupation: [employer] Current occupational exposures/hazards: No Cognitive needs: No Hearing needs: No Vision needs: No Review of Systems Const Details: Const Denies body aches, Denies chills, Denies excessive sweating and Denies fatigue Eyes Denies blurry vision and Denies change in vision ENT Denies bleeding gums and Denies change in voice Card Denies chest pain and Denies leg ulcers Resp Denies cough and Denies excessive phlegm production GI Denies abdominal pain and Denies bloating Denies hematuria, Denies urinary frequency and Denies difficulty voiding Musc Denies abnormal gait Neuro Denies Neuro-related abnormal movements, Denies abnormal gait and Denies behavioral changes Psych Denies behavioral changes and Denies change in appetite Endo Denies change in body appearance, Denies cold intolerance, Denies excessive sweating and Denies fatigue Physical Exam Vital Signs: Last Vital Signs Pulse 92 01/30/25 15:35 BP 144/82 H 01/30/25 15:35 Pulse Ox 96 01/30/25 15:35 Oxygen Delivery Method Room Air 01/30/25 15:35 BMI result Body Mass Index 38.5 General: Young looking male, very pleasant, Not in any acute distress, comfortable, sitting on the chair Nutritional Appearance: well nourished and overweight Eyes: appearance normal, both eyes and all related structures; Alignment and Position: alignment normal and position normal Neck: No lymphadenopathy, no thyromegaly Resp: bilateral air entry equal, no added sounds present Cardio: Regular rate, regular rhythm; Heart sounds: S1 normal heart sound present and S2 normal heart sound present, no edema GI: soft, nontender, no guarding, no hepatosplenomegaly : bladder normal to inspection, bladder normal to palpation, no renal angle tenderness Skin: no rashes or lesions noted and elasticity normal Neuro: oriented to person, oriented to place, oriented to time and moves all extremities Results Reviewed Nephrology Results: No Data to Display Assessment & Plan Assessment & Plan (1) Diabetic kidney disease: Code(s): E11.21 - Type 2 diabetes mellitus with diabetic nephropathy Category: Medical (2) Type 2 diabetes mellitus with hyperglycemia: Code(s): E11.65 - Type 2 diabetes mellitus with hyperglycemia Category: Medical Qualifiers: Diabetes mellitus skilled nursing insulin use: with intermediate card tender use Qualified Code(s): E11.65 - Type 2 diabetes mellitus with hyperglycemia; Z79.4 - watermaster (current) use of insulin (3) HTN (hypertension): Code(s): I10 - Essential (primary) hypertension Category: Medical Plan Microalbuminuria possibly secondary to diabetic kidney disease - creatinine 0.77 , GFR 60 in September 2024 - urine microalbumin creatinine ratio: 185.2 - Urinalysis showed 1+ protein, no cells - Renal ultrasound showed 12.7 cm left kidney, 12 cm right kidney in September 2024 - importance of diet, weight loss, adequate blood pressure control, stopped smok ing we will explained to patient - we will get hepatitis panel, HIV, PLA2R with the next set of labs - we will increase lisinopril to 20 mg, continue Jardiance. Can increase the lisinopril to 40 mg further if the blood pressure remains above 130 mm systolic - loosing weight with Manjauro, lost 5lbs in the past week. Can follow-up in the clinic after 6 months. Total time spent in the clinic is about 40 minutes, 10 minutes on chart review, review of data, 20 minutes on encounter, physical examination, counseling, answering all the questions, 10 minutes on documentation. Orders: Orders Hepatitis B Surface Antigen 4 Months E11.21 - Type 2 diabetes mellitus with diabetic nephropathy Hepatitis C Antibody Reflex 4 Months E11.21 - Type 2 diabetes mellitus with diabetic nephropathy HIV Ab/Ag 4 Months E11.21 - Type 2 diabetes mellitus with diabetic nephropathy Total Protein Urine Random 4 Months E11.21 - Type 2 diabetes mellitus with diabetic nephropathy Creatinine Urine 4 Months E11.21 - Type 2 diabetes mellitus with diabetic nephropathy Microalbumin, Random (w Creat) 4 Months E11.21 - Type 2 diabetes mellitus with diabetic nephropathy Phospholipase A2 Receptor Pnl 4 Months E11.21 - Type 2 diabetes mellitus with diabetic nephropathy Medications: New lisinopril 20 mg PO DAILY 30 tabs 5RF Coding Level of Care Code New Pt Level 4 (09907) Diagnoses Diabetic kidney disease E11.21 Type 2 diabetes mellitus with hyperglycemia, with long-term current use of insulin E11.65; Z79.4 Diabetes mellitus intermediate card tender insulin use: with skilled nursing use HTN (hypertension) I10
[2025-01-30 15:35] VITALS: BP 130/70; PULSE 92; O2SAT 96; BMI 38.5
== END 2025-01-30 16:05 | disposition home or self-care (01) ==
LOC: HO.HKA 15:29
PROVIDERS: PCP Nurse Practitioner Family; Visit Provider Internal Medicine Critical Care Medicine
DX: E11.21 Type 2 diabetes mellitus with diabetic nephropathy (principal); E11.65 Type 2 diabetes mellitus with hyperglycemia; Z79.4 Long term (current) use of insulin; I10 Essential (primary) hypertension
CPT/HCPCS: 99204

== ENCOUNTER → 2025-01-30 15:28 | Outpatient (BNVA) | payer OTHER, SELFPAY | PROVIDERS: PCP Nurse Practitioner Family; Visit Provider Internal Medicine Critical Care Medicine | DX: E11.21 Type 2 diabetes mellitus with diabetic nephropathy (principal); E11.65 Type 2 diabetes mellitus with hyperglycemia; I10 Essential (primary) hypertension; Z79.4 Long term (current) use of insulin | CPT/HCPCS: 99202 ==

== ENCOUNTER 2025-03-29 15:25 | Emergency (ER) | payer OTHER, SELFPAY ==
--- NOTE | ~2025-03-29 | XR_ITS ---
CLINICAL HISTORY: work injury, pain swelling 4 view left knee Comparison: None provided Findings: No fractures or dislocations. Mild/early tricompartmental joint space narrowing. No joint effusion. No radiopaque foreign body. IMPRESSION: No acute fracture, dislocation or significant joint effusion. This document has been electronically signed by: Marce Valencia DO on 03/29/2025 16:50:05
--- NOTE | 2025-03-29 15:40 | ED_ITS ---
HPI - Extremity Injury (Lower) General Chief Complaint: Extremity Injury, Lower Stated Complaint: tingling sensation lt leg work injury Time Seen by Provider: 03/29/25 16:56 Source: patient and family Mode of arrival: ambulatory Limitations: no limitations History of Present Illness ED Provider: Caitlyn Greenberg APRN HPI Narrative: 40 yo male with PMH of DM, HTN, HLD here with complaints of left knee injury which occurred Sunday while at work. Increasing pain yesterday, swelling to left lower leg. 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 He fell through to his knee and then he got caught. He was able to get out. He was in the a day by a provider and at that time deferred and x-ray. He did have some abrasions to the leg and so he received a tetanus vaccine at that time. Related Data Home Medications ?Medication ?Instructions ?Recorded ?Confirmed blood-glucose meter #1 ea 07/20/20 01/26/25 lancets 28 gauge #100 ea 07/20/20 01/26/25 Previous Rx's ?Medication ?Instructions ?Recorded blood-glucose meter (FreeStyle #1 ea 12/04/22 Lite Meter kit) blood sugar diagnostic #300 ea 04/06/23 omeprazole 40 mg capsule,delayed 40 mg PO DAILY #90 ca ps 05/27/24 release sildenafil 25 mg tablet 25 mg PO DAILY PRN sexual ac tivity 05/27/24 #10 tabs metformin 500 mg tablet 500 mg PO BID #180 tabs 12/10 06/04 atorvastatin 40 mg tablet 40 mg PO DAILY #90 tabs 050 05/04 insulin glargine 100 unit/mL (3 80 unit (0.8 mL) subcu t DAILY #45 01/26/25 mL) subcutaneous pen (Lantus mL Solostar U-100 Insulin) lisinopril 20 mg tablet 20 mg PO DAILY #30 tabs 01/09 12/02 empagliflozin 25 mg tablet 25 mg PO DAILY #90 tabs (Jardiance) tirzepatide 5 mg/0.5 mL 5 mg (0.5 mL) subcut QWEEK # 2 mL 03/03/25 subcutaneous pen injector Allergies Allergy/AdvReac Type Severity Reaction Status Date / Time Sulfa (Sulfonamide Allergy Unknown HIVES Verified 03/29/25 15:45 Antibiotics) (SULFA (SULFONAMIDE ANTIBIOTICS)) semaglutide (From Ozempic) AdvReac Mild gi issues Verified 03/29/25 15:45 trulicty AdvReac Mild gi issues Uncoded 01/26/25 14:33 Review of Systems Review of Systems: Yes all other systems are reviewed and are negative Constitutional: Constitutional: Reports no additional constitutional complaints, Denies body ache(s), Denies chills, Denies fever(s), Denies headache(s) and Denies weakness Eyes: Eyes: Reports no additional eye complaints and Denies change in vision ENT: Reports system reviewed and no additional complaints, except as documented, Denies dizziness, Denies headache(s), Denies nasal congestion, Denies nasal discharge and Denies neck pain Cardiovascular: Cardiovascular: Reports no additional cardiovascular complaints, Denies chest pain, Denies leg edema and Denies dyspnea Respiratory: Respiratory: Reports no additional respiratory complaints, Denies cough and Denies dyspnea Gastrointestinal: Gastrointestinal: Reports no additional gastrointestinal c omplaints, Denies abdominal pain, Denies diarrhea, Denies nausea and Denies vomiting Genitourinary: Genitourinary: Denies urinary incontinence Musculoskeletal: Musculoskeletal: Reports no additional musculoskeletal complaints, Denies back pain, Reports arthralgias, Reports joint swelling, De nies neck pain, Denies numbness and Denies tingling Integumentary/Breasts: Skin/Breast: Reports system reviewed and no additional complaints, except as docu and Denies rash Neurologic: Reports system reviewed and no additional complaints, except as documented, Denies Abnormal speech present, Denies dizziness, Denies headache(s), Denies numbness, Denies tingling and Denies weakness PMFSH Past Medical History Attestation statement: The following information was validated with the patient. Source: old records reviewed and nursing notes reviewed Medical History H/O splenomegaly Fatty liver Obstructive sleep apnea syndrome Elevated alkaline phosphatase level GERD (gastroesophageal reflux disease) Lumbar disc disease Proteinuria Type 2 diabetes mellitus with other diabetic kidney complication Hyperlipidemia LDL goal <100 Obesity due to excess calories Surgical History History of removal of cyst (~10/23/24) Hx of removal of cyst Family History Family History Father CVD (cardiovascular disease) Diabetes mellitus Mother Mental health disorder Sister Substance use disorder Sister No problems noted. Son No problems noted. Daughter No problems noted. Daughter No problems noted. Social History Social History Household Members: Children Housing: House Alcohol intake: current Alcohol intake frequency: does not drink Patient Tobacco Use Status: Former Tobacco user e-Cigarette/Vaping Use: Never Used Second Hand Smoke Exposure: No Substance Use Type: Marijuana Advance Directives: No Advance Directives Information Provided: No service: No Current occupational status: employed Current occupation: [employer] Current occupational exposures/hazards: No Cognitive needs: No Hearing needs: No Vision needs: No Physical Exam Vital Signs: Vital Signs: Last Vital Signs Temp 97.6 F 03/29/25 15:43 Pulse 93 03/29/25 15:43 Resp 16 03/29/25 15:43 BP 193/108 H 03/29/25 15:43 Pulse Ox 97 03/29/25 15:43 O2 Del Method Room Air 03/29/25 15:43 BMI result Body Mass Index 35.7 Const: General: cooperative, healthy appearing, comfortable and no acute distress Orientation/consciousness: patient oriented x3 Limitations: no limitations HEENT: Head: Yes normal to inspection Ears: hearing grossly normal bilaterally General nose exam: Normal external nose present Face and sinus: Yes normal facial exam Mouth: Normal oral and palatal mucosa present Throat: Yes posterior oropharynx normal Eyes: General: appearance normal, both eyes and all related structures Pupils: Equal, round and reactive pupils present Neck: Neck: Yes normal visual inspection Chest: Chest palpation & inspection: normal inspection of the chest Resp: Effort & Inspection: normal respiratory effort Auscultation: clear to auscultation bilaterally Cardio: Rate: regular rate Rhythm: regular rhythm Peripheral pulses: Peripheral pulses 2+ throughout GI: Inspection: Yes normal to inspection Palpation (GI): Soft to palpation and nontender Auscultation: normal bowel sounds Back/Spine/Pelvis: Thoracic/Lumbar Spine: thoracic and lumbar spine normal to inspection Skin: General skin exam: no rashes or lesions noted Neuro: General: patient oriented x3, no focal motor deficits and normal sensation to monofilament Cranial nerves: Yes Equal, round and reactive pupils present Cognition (Neuro): normal cognition Speech: No Abnormal speech present Gait exam (Neuro): Normal gait present Motor exam (neuro): 5/5 motor strength present throughout Extrem: Other: There is abrasion to the medial knee with ecchymosis and swelling. There is full active and passive range of motion of the left knee. There is swelling noted to the left calf and foot. The compartments are soft and compressible. Normal sensation. 2+ DP and PT pulses. Skin is pink, warm and dry General: Yes normal to inspection Course Course Course Narrative: Caitlyn Greenberg [employer] 03/29 1540 Defer additional HPI, ROS, PE to primary provider. 40 yo male with PMH of DM, HTN, HLD here with complaints of left knee injury which occurred Sunday while at work. Increasing pain yesterday, swelling to left lower leg and tingling. Will obtain x-rays. Medical Decision Making Medical Decision Making MDM Narrative: 40 yo male with PMH of DM, HTN, HLD here with complaints of left knee injury which occurred Sunday while at work. Increasing pain yesterday, swelling to left lower leg. 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 He fell through to his knee and then he got caught. He was able to get out. He was in the a day by a provider and at that time deferred and x-ray. He did have some abrasions to the leg and so he received a tetanus vaccine at that time. There is abrasion to the medial knee with ecchymosis and swelling. There is full active and passive range of motion of the left knee. There is swelling noted to the left calf and foot. The compartments are soft and compressible. Normal sensation. 2+ DP and PT pulses. Skin is pink, warm and dry Will check x-ray Differential Diagnosis Differential Diagnoses: The differential diagnosis associated with the presentation includes Fracture, sprain, strain, contusion Low suspicion for vascular injury, dislocation, complex fracture, compartment syndrome Admission/Observation Consideration of admission/observation: Escalation of care including admission/observation considered Low suspicion for vascular injury, dislocation, complex fracture, compartment syndrome requiring advanced imaging, urgent consultation, admission Independent Interpretation I performed an independent interpretation of an: Plain X-Ray Interpretation: I independently viewed the x-ray and agree with the radiology report Radiology Impression Discussion of test interpretation with radiology: I have reviewed the radiologist's reading. Radiologist Impression: [address] [address] XRay Report Signed Patient: Alexis Pinedo MR#: [id number] : 1985 Acct:[id number] Age/Sex: 40 / M ADM Date: 03/29/25 Loc: HO.ED Attending Dr: Ordering Physician: Caitlyn Greenberg NP Date of Service: 03/29/25 Procedure(s): XR knee LT 3V Accession Number(s): [id number] cc: Kee German B[facility]ER-[facility]; Caitlyn Greenberg NP~ CLINICAL HISTORY: work injury, pain swelling 4 view left knee Comparison: None provided Findings: No fractures or dislocations. Mild/early tricompartmental joint space narrowing. No joint effusion. No radiopaque foreign body. IMPRESSION: No acute fracture, dislocation or significant joint effusion. This document has been electronically signed by: Marce Valencia DO on 03/29/2025 16:50:05 Tests considered The following testing was considered but not selected: Low suspicion for vascular injury, dislocation, complex fracture, compartment syndrome requiring advanced imaging, Prescription Management I considered prescription management with: Pain Medication Procedures Orthopedic Splinting/Casting Injury #1: Side: left Lower Extremity Injury Location: lower leg Lower Extremity Immobilizer: Ricardo wrap Other Orthopedic Equipment: crutches Discharge Plan Discharge Clinical Impression: Contusion of left lower leg Patient Disposition: Home, Self-Care Instructions: Contusion in Adults (ED) Additional Instructions: ELEVATE THE LEG USE THE COMPRESSION BANDAGE AND CRUTCHES CONTINUE IBUPROFEN EVERY 6 HOURS FOR PAIN AND INFLAMMATION APPLY ICE FOLLOW-UP WITH YOUR PRIMARY CARE DOCTOR FOR REPEAT BLOOD PRESSURE CHECK RETURN FOR ANY WORSENING SYMPTOMS FOLLOW-UP WITH YOUR PRIMARY CARE DOCTOR FOR ANY CONTINUED SYMPTOMS Prescriptions: No Action (DME) blood sugar diagnostic Strip See Rx Instructions .ROUTE .MEDSUPPLY Qty: 300 3RF Rx Instructions: TID testing, FREESTYLE LITE STRIPS metformin 500 mg tablet 500 mg PO BID Qty: 180 0RF atorvastatin 40 mg tablet 40 mg PO DAILY Qty: 90 1RF Jardiance 25 mg tablet 25 mg PO DAILY Qty: 90 1RF tirzepatide 5 mg/0.5 mL pen injector 5 mg subcut QWEEK Qty: 2 0RF Rx Instructions: for 4 weeks (DME) blood-glucose meter [FreeStyle Lite Meter] Kit See Rx Instructions .ROUTE .MEDSUPPLY Qty: 1 0RF Rx Instructions: As directed 3 x/day (DME) blood-glucose meter Kit See Rx Instructions .ROUTE .MEDSUPPLY Qty: 1 Rx Instructions: As directed (DME) lancets 28 gauge misc See Rx Instructions topical TID Qty: 100 Rx Instructions: As directed omeprazole 40 mg capsule,delayed release(DR/EC) 40 mg PO DAILY Qty: 90 1RF sildenafil 25 mg tablet 25 mg PO DAILY PRN (Reason: sexual activity) Qty: 10 0RF Rx Instructions: administer 30 minutes to 4 hours before activity insulin glargine [Lantus Solostar U-100 Insulin] 100 unit/mL (3 mL) insulin pen 80 unit subcut DAILY Qty: 45 3RF lisinopril 20 mg tablet 20 mg PO DAILY Qty: 30 5RF Referrals: Kee German, BASS FISHER-BC [Primary Care Provider, Internal Medicine] Stand Alone Forms: Work/School Release Discharge Date/Time: 03/29/25 17:20 Print Language: Comoran
[2025-03-29 15:43] VITALS: BP 193/108; PULSE 93; RESP 16; TEMP 36.4; O2SAT 97; BMI 35.7
== END 2025-03-29 17:20 | disposition home or self-care (01) ==
PROVIDERS: Emergency Provider Emergency Medicine; PCP Nurse Practitioner Family
DX: S80.12XA Contusion of left lower leg, initial encounter (principal); S89.92XA Unspecified injury of left lower leg, initial encounter; M79.605 Pain in left leg; X50.1XXA Overexertion from prolonged static or awkward postures, initial encounter; X50.9XXA Other and unspecified overexertion or strenuous movements or postures, initial encounter; Y93.9 Activity, unspecified; Y92.9 Unspecified place or not applicable; Y99.0 Civilian activity done for income or pay; Z79.899 Other long term (current) drug therapy; Z87.891 Personal history of nicotine dependence
CPT/HCPCS: 73562; 99281; 99283

== ENCOUNTER → 2025-03-29 15:48 | Outpatient (BNV) | payer OTHER, SELFPAY | PROVIDERS: Emergency Provider Emergency Medicine; PCP Nurse Practitioner Family; Visit Provider Radiology Diagnostic Radiology | DX: M25.562 Pain in left knee (principal) | CPT/HCPCS: 73562 ==

== ENCOUNTER 2025-04-11 18:44 | Emergency (ER) | payer OTHER, SELFPAY ==
--- NOTE | ~2025-04-11 | US_ITS ---
CLINICAL HISTORY: pain, swelling, recent knee onjury Venous duplex ultrasound left lower extremity COMPARISON: None provided. FINDINGS: The visualized deep veins are fully compressible with normal Doppler color flow and spectral tracings. No popliteal cyst. Complex fluid collection present in the medial aspect of the left knee measuring 1.4 x 0.4 x 1.3 cm. No surrounding hyperemia. IMPRESSION: 1. Negative for left lower extremity deep vein thrombosis. 2. Complex fluid collection measuring up to 1.4 cm present along the medial aspect of the left knee. This could represent small hematoma versus small abscess. Recommend correlation clinically. This document has been electronically signed by: Fadi Edge MD on 04/11/2025 19:49:11
[2025-04-11 18:48] VITALS: BP 161/74; PULSE 101; RESP 17; TEMP 36.7; O2SAT 99; BMI 39.5
--- NOTE | 2025-04-11 18:48 | ED.LOWEXIN ---
HPI - Extremity Injury (Lower) General Chief Complaint: Extremity Injury, Lower Stated Complaint: ? lt leg blood clot, sent from urgent again Time Seen by Provider: 04/11/25 21:01 History of Present Illness ED Provider: Eleuterio Guerra MD HPI Narrative: 40-year-old male who reports about a week ago his leg fell into a slot back of his truck in the injury of the medial aspect of his left knee. Since then he has had mild swelling of the ankle but mostly concerned about induration swelling and slight redness/warmth subjectively to the medial knee. He is able to bear weight has no pain in the thigh calf no history of DVT Related Data Home Medications ?Medication ?Instructions ?Recorded ?Confirmed blood-glucose meter #1 ea 07/20/20 01/26/25 lancets 28 gauge #100 ea 07/20/20 01/26/25 Previous Rx's ?Medication ?Instructions ?Recorded blood-glucose meter (FreeStyle #1 ea 12/04/22 Lite Meter kit) blood sugar diagnostic #300 ea 04/06/23 omeprazole 40 mg capsule,delayed 40 mg PO DAILY #90 caps 05/27/24 release sildenafil 25 mg tablet 25 mg PO DAILY PRN sexual activity 05/27/24 #10 tabs atorvastatin 40 mg tablet 40 mg PO DAILY #90 tabs 01/15/25 insulin glargine 100 unit/mL (3 80 unit (0.8 mL) subcut DAILY #45 01/26/25 mL) subcutaneous pen (Lantus mL Solostar U-100 Insulin) lisinopril 20 mg tablet 20 mg PO DAILY #30 tabs 01/30/25 empagliflozin 25 mg tablet 25 mg PO DAILY #90 tabs 03/01/25 (Jardiance) tirzepatide 5 mg/0.5 mL 5 mg (0.5 mL) subcut QWEEK #2 mL 03/03/25 subcutaneous pen injector metformin 500 mg tablet 500 mg PO BID #180 tabs 04/07/25 doxycycline hyclate 100 mg capsule 100 mg PO BID 7 days #14 caps 04/11/25 Allergies Allergy/AdvReac Type Severity Reaction Status Date / Time Sulfa (Sulfonamide Allergy Unknown HIVES Verified 04/11/25 18:50 Antibiotics) (SULFA (SULFONAMIDE ANTIBIOTICS)) semaglutide (From Ozempic) AdvReac Mild gi issues Verified 04/11/25 18:50 trulicty AdvReac Mild gi issues Uncoded 04/11/25 18:50 PMFSH Past Medical History Medical History H/O splenomegaly Fatty liver Obstructive sleep apnea syndrome Elevated alkaline phosphatase level GERD (gastroesophageal reflux disease) Lumbar disc disease Proteinuria Type 2 diabetes mellitus with other diabetic kidney complication Hyperlipidemia LDL goal <100 Obesity due to excess calories Surgical History History of removal of cyst (~10/23/24) Hx of removal of cyst Family History Family History Father CVD (cardiovascular disease) Diabetes mellitus Mother Mental health disorder Sister Substance use disorder Sister No problems noted. Son No problems noted. Daughter No problems noted. Daughter No problems noted. Social History Social History Household Members: Children Housing: House Alcohol intake: current Alcohol intake frequency: does not drink Patient Tobacco Use Status: Former Tobacco user Smoked in Last 30 Days: No e-Cigarette/Vaping Use: Never Used Second Hand Smoke Exposure: No Use of substances other than those prescribed or required for medical reasons: No Substance Use Type: Marijuana Advance Directives: No Advance Directives Information Provided: No Do you have a plan to hurt others: No Plan service: No Current occupational status: employed Current occupation: [employer] Current occupational exposures/hazards: No Cognitive needs: No Hearing needs: No Vision needs: No Physical Exam Exam: Exam: EXAM: Gen: Alert, awake, well appearing, well hydrated. Head: Atraumatic Eyes: Anicteric, Normal conjunctiva. ENT: Moist mucosa, no pallor. ? Neck: Supple. Skin: ?Swelling indurated mildly erythematous skin medial left knee. MSK: Left side Full range of motion of the knee minimal swelling of the ankle without tenderness well-perfused foot. Vital signs: See flowsheet Vital Signs: Vital Signs: Last Vital Signs Temp 98 F 04/11/25 22:47 Pulse 91 04/11/25 22:47 Resp 18 04/11/25 22:47 BP 152/91 H 04/11/25 22:47 Pulse Ox 95 04/11/25 22:47 O2 Del Method Room Air 04/11/25 22:47 BMI result Body Mass Index 39.5 Course Course Course Narrative: This is an RME performed by Prince Rivas CNP: Additional HPI, ROS, PE not included below will be deferred to primary provider. Patient is a 40-year-old who presents emergency department for evaluation, he was referred from urgent care advising to have ultrasound to rule out a DVT. 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 He fell through to his knee and then he got caught. He was able to get out. Knee x-ray 03/29/2025 was unremarkable. He reports that he was having symptomatic improvement. However over the past few days he again has had increase in swelling, pain, and pressure to the left lower extremity. No history of VTE/malignancy. Plan: Venous duplex ultrasound Medications Administered Discontinued Medications Generic Name Dose Route Start Last Admin Trade Name Freq PRN Reason Stop Dose Admin Lidocaine/Epinephrine 10 ml 04/11/25 21:12 04/11/25 22:04 Lidocaine Hcl 1%/Epi 1:100,000 10 Ml Vial INFILTRATI 04/11/25 21:13 10 ml ONCE ONE Administration Trimethoprim/Sulfamethoxazole 1 tab 04/11/25 21:12 04/11/25 22:04 Sulfamethox/Trimeth 800/160 Tablet PO 04/11/25 21:13 1 tab ONCE ONE Administration Medical Decision Making Medical Decision Making [facility] Narrative: Medical Decision Makin-year-old male with no significant history with post injury erythema induration. Fluid collection seen on ultrasound. DVT excluded. Well-perfused foot with soft compartments throughout the lower extremity no neurologic deficits. Pre procedural presumed diagnosis was subcutaneous hematoma versus abscess. Shared decision making discussion incision drainage was agreed upon. Procedure was successful with mostly sanguinous material this was sent for culture. Empiric antibiotics initiated for the possibility of infected hematoma and/or cellulitis of the affected site. No bony tenderness to suggest bony injury the patient is bearing full weight Preliminary Favored Differential Diagnosis: Abscess, hematoma, DVT, skin induration, cellulitis among additional considered etiologies Testing Interpreted Independently: Not Applicable Radiology or Lab testing Results Reviewed: Ultrasound excludes DVT Consults: Not Applicable Independent Historians/External Chart Reviews: Not Applicable Social Determinants of Health Impacting MDM/Planning: Not Applicable Procedures Procedure Narrative Procedure Narrative: PROCEDURE NOTE Procedure: Incision and Drainage Performed by: Eleuterio Guerra MD Indication: Subcutaneous collection Anesthesia was obtained with 10 ml of 1% lidocaine with epinephrine. The area was prepped in the usual sterile fashion. A number 11 scalpel was used to create an incision. Return was 3 ml of sanguinous fluid. The collection was probed loculations were broken up. The site was packed with iodoform gauze proximally 20 cm Ultrasound guidance was needed. A dressing was placed over the site. The patient tolerated the procedure well. Wound care instructions were given. ? Post-Procedure Diagnosis: [same as indication] __ EMERGENCY ULTRASOUND INTERPRETATION- Limited skin and soft tissue [This study was ordered, performed, and interpreted by myself. The study reveals: Impression: ?Unspecified small volume subcutaneous collection nonvascular [Indication: ?Redness and swelling Skin: ?Subcutaneous collection medial left knee Performed by: ?Eleuterio Guerra MD ?Images were stored ] Discharge Plan Discharge Clinical Impression: Subcutaneous hematoma Patient Disposition: Home, Self-Care Instructions: Hematoma (ED) Additional Instructions: DISCHARGE DIAGNOSES: Subcutaneous collection likely hematoma possibly infected about 3 weeks after fall injury HISTORY OF PRESENTATION: ?Swelling persistent redness and swelling since an injury 3 weeks ago EMERGENCY DEPARTMENT COURSE,TESTS, TREATMENTS: While in the ED today your examination was reassuring though there was some indurated tender and slightly red warm skin overlying the area that you were concerned about. DVT ultrasound excluded deep vein clot and did show a subcutaneous collection. Bedside ultrasound confirmed this and an incision and drainage was done after shared decision-making. Culture was obtained taken any been started on antibiotics DISCHARGE MEDICATIONS: ?Doxycycline FOLLOW-UP: ?Call your primary or general physician soon as possible to discuss your symptoms, your ED visit and to discuss follow up plans Urgent care go for packing removal wound assessment Sunday afternoon INSTRUCTIONS ?& RETURN PRECAUTIONS: If any symptoms change first call your primary physician, if it is after-hours your primary doctors office should have a provider systems development consultant you can speak with. If the symptoms are severe or very concerning to you then call 911 or return to the ED. Eleuterio Guerra MD Emergency Physician [facility] Prescriptions: New doxycycline hyclate 100 mg capsule 100 mg PO BID 7 Days Qty: 14 0RF No Action (DME) blood sugar diagnostic Strip See Rx Instructions .ROUTE .MEDSUPPLY Qty: 300 3RF Rx Instructions: TID testing, FREESTYLE LITE STRIPS atorvastatin 40 mg tablet 40 mg PO DAILY Qty: 90 1RF Jardiance 25 mg tablet 25 mg PO DAILY Qty: 90 1RF tirzepatide 5 mg/0.5 mL pen injector 5 mg subcut QWEEK Qty: 2 0RF Rx Instructions: for 4 weeks metformin 500 mg tablet 500 mg PO BID Qty: 180 1RF (DME) blood-glucose meter [FreeStyle Lite Meter] Kit See Rx Instructions .ROUTE .MEDSUPPLY Qty: 1 0RF Rx Instructions: As directed 3 x/day (DME) blood-glucose meter Kit See Rx Instructions .ROUTE .MEDSUPPLY Qty: 1 Rx Instructions: As directed (DME) lancets 28 gauge misc See Rx Instructions topical TID Qty: 100 Rx Instructions: As directed omeprazole 40 mg capsule,delayed release(DR/EC) 40 mg PO DAILY Qty: 90 1RF sildenafil 25 mg tablet 25 mg PO DAILY PRN (Reason: sexual activity) Qty: 10 0RF Rx Instructions: administer 30 minutes to 4 hours before activity insulin glargine [Lantus Solostar U-100 Insulin] 100 unit/mL (3 mL) insulin pen 80 unit subcut DAILY Qty: 45 3RF lisinopril 20 mg tablet 20 mg PO DAILY Qty: 30 5RF Interventions: ED Discharge Assessment Last Done: 04/11/25 22:47 Discharge Date/Time: 04/11/25 22:47 Print Language: Turkish
[2025-04-11 21:01] VITALS: BP 134/79; PULSE 87; RESP 18; O2SAT 95
[2025-04-11] MEDS: Sulfamethox/Trimeth 800/160 TABLET 1 TAB PO (22:04)
[2025-04-11] MEDS: Lidocaine HCl 1%/Epi 1:100,000 10 ML VIAL INFILTRATI (22:04)
[2025-04-11 22:30] VITALS: BP 152/91; PULSE 91; RESP 18; O2SAT 95
--- NOTE | 2025-04-11 22:45 | PC.NURSE ---
pt knee aspiration culture sent to lab at this time
[2025-04-11 22:47] VITALS: BP 152/91; PULSE 91; RESP 18; TEMP 36.6; O2SAT 95
== END 2025-04-11 22:47 | disposition home or self-care (01) ==
PROVIDERS: Emergency Provider Emergency Medicine; PCP Nurse Practitioner Family
DX: S80.02XA Contusion of left knee, initial encounter (principal); R60.0 Localized edema; E11.9 Type 2 diabetes mellitus without complications; X58.XXXA Exposure to other specified factors, initial encounter; Y93.9 Activity, unspecified; Y92.9 Unspecified place or not applicable; Y99.8 Other external cause status; Z87.891 Personal history of nicotine dependence; Z79.4 Long term (current) use of insulin; Z79.899 Other long term (current) drug therapy
CPT/HCPCS: 10140; 87070; 87205; 93971; 99284; J2004

== ENCOUNTER → 2025-04-11 18:52 | Outpatient (BNV) | payer OTHER, SELFPAY | PROVIDERS: PCP Nurse Practitioner Family; Visit Provider Radiology Diagnostic Radiology | DX: M25.462 Effusion, left knee (principal) | CPT/HCPCS: 93971 ==

== ENCOUNTER 2025-04-13 11:26 | Outpatient (AMB) | payer OTHER, SELFPAY ==
[2025-04-13 13:07] VITALS: BP 142/86; PULSE 89; TEMP 36.8; O2SAT 94; BMI 39.4
--- NOTE | 2025-04-13 13:07 | AM.OFFWIN_ITS ---
Intake Vital Signs 04/13/25 13:07 Height 5 ft 8 in Weight 259 lb BMI 39.4 BP 142/86 H Blood Pressure Location Lt brachial Position Sitting Pulse 89 Pulse Source Pulse Oximeter Temp 98.2 F Temp Source Oral Pulse Oximetry (%) 94 Oxygen Delivery Method Room Air Intake Visit Reasons: EP-wound care Intake Note: presents for wound check left leg s/p hematoma drainage 2 days ago Patient Tobacco Use Status: Former Tobacco user Allergies Sulfa (Sulfonamide Antibiotics) (SULFA (SULFONAMIDE ANTIBIOTICS)) Allergy (Unknown, Verified 04/13/25 13:08) HIVES semaglutide (From Ozempic) Adverse Reaction (Mild, Verified 04/13/25 13:08) gi issues trulicty Adverse Reaction (Mild, Uncoded 04/11/25 18:50) gi issues Do you need a note to return to daycare/school/sports/work: No HPI HPI Comments History of Present Illness Details History of Present Illness - The patient is a 40-year-old male pres enting for hematoma management following a slip and fall incident at work. - The hematoma was drained at [facility]'s emergency department on Sunday. - The patient was advised to have the pa cking removed and allow the wound to heal by secondary intention. - The hematoma was initially dark purple , indicating contained blood, and improved significantly after drainage. - The patient experienced significant di scomfort due to the hematoma, affecting sleep. - The patient was advised to take a week off work for recovery. - She denies fever, chills, redness, war mth, discharge, or pus. Physical Exam General: Cooperative, healthy appearing, comfortable, no acute distress and well developed Respiratory: Normal respiratory effort and able to speak in complete sentences. Clear to auscultation bilaterally Cardiovascular: Regular rate and rhythm. Normal S1 and S2 Skin: No rashes or lesions noted, Open wound on the left upper medial thigh with packing intact. No bleeding or discharge noted. Neuro: Sensation is intact Extremities: Normal to inspection. FROM of the left leg and knee. Ambulates with steady gait. Procedure- Packing removed from the left upper leg. Wound irriated with normal saline. Covered with guaze and Tegaderm. Procedure was well tolerated. Patient was informed and verbally consented to the use of an ambient scribe for clinic note documentation during this visit. [facility] Medical History H/O splenomegaly Fatty liver Obstructive sleep apnea syndrome Elevated alkaline phosphatase level GERD (gastroesophageal reflux disease) Lumbar disc disease Proteinuria Type 2 diabetes mellitus with other diabetic kidney complication Hyperlipidemia LDL goal <100 Obesity due to excess calories Surgical History History of removal of cyst (~10/23/24) Hx of removal of cyst Family History Father CVD (cardiovascular disease) Diabetes mellitus Mother Mental health disorder Sister Substance use disorder Sister No problems noted. Son No problems noted. Daughter No problems noted. Daughter No problems noted. Social History Household Members: Children Housing: House Alcohol intake: current Alcohol intake frequency: does not drink Patient Tobacco Use Status: Former Tobacco user e-Cigarette/Vaping Use: Never Used Second Hand Smoke Exposure: No Substance Use Type: Marijuana service: No Current occupational status: employed Current occupation: [employer] Current occupational exposures/hazards: No Cognitive needs: No Hearing needs: No Vision needs: No Review of Systems Const All systems reviewed & are unremarkable except as noted in HPI and below Physical Exam Vital Signs: Last Vital Signs Temp 98.2 F 04/13/25 13:07 Pulse 89 04/13/25 13:07 BP 142/86 H 04/13/25 13:07 Pulse Ox 94 04/13/25 13:07 Oxygen Delivery Method Room Air 04/13/25 13:07 BMI result Body Mass Index 39.4 Assessment & Plan Assessment & Plan (1) Leg wound, left: Code(s): S81.802A - Unspecified open wound, left lower leg, initial encounter Qualifiers: Encounter type: initial encounter Qualified Code(s): S81.802A - Unspecified open wound, left lower leg, initial encounter (2) Encounter for abscess packing removal: Code(s): Z48.00 - Encounter for change or removal of nonsurgical wound dressing Plan Plan - The patient should monitor the wound for signs of infection and keep it open to prevent reaccumulation of blood. - The patient was advised to take a week off work to facilitate healing. - The patient should use saline to clean the wound and keep it covered when not showering. Coding Level of Care Code Est Pt Level 3 (59522) Diagnoses Wound of left lower extremity, initial encounter S81.802A Encounter type: initial encounter Encounter for abscess packing removal Z48.00
== END 2025-04-13 14:06 | disposition home or self-care (01) ==
PROVIDERS: PCP Nurse Practitioner Family; Visit Provider Physician Assistant Medical
DX: S81.802A Unspecified open wound, left lower leg, initial encounter (principal); Z48.00 Encounter for change or removal of nonsurgical wound dressing

== ENCOUNTER → 2025-04-13 11:26 | Outpatient (BNVA) | payer OTHER, SELFPAY | PROVIDERS: PCP Nurse Practitioner Family; Visit Provider Physician Assistant Medical | DX: S81.802D Unspecified open wound, left lower leg, subsequent encounter (principal); W19.XXXD Unspecified fall, subsequent encounter; Z48.00 Encounter for change or removal of nonsurgical wound dressing | CPT/HCPCS: 99212 ==

== ENCOUNTER 2025-04-20 07:00 | Outpatient (AMB) | payer OTHER, SELFPAY ==
[2025-04-20 07:17] VITALS: BP 162/94; PULSE 91; TEMP 36.8; O2SAT 98; BMI 39.4
--- NOTE | 2025-04-20 07:17 | AM.OFFWIN_ITS ---
Intake Vital Signs 04/20/25 07:17 Height 5 ft 8 in Weight 259 lb BMI 39.4 BP 162/94 H Blood Pressure Location Lt brachial Position Sitting Pulse 91 Pulse Source Pulse Oximeter Temp 98.2 F Temp Source Oral Pulse Oximetry (%) 98 Oxygen Delivery Method Room Air Intake Visit Reasons: EP Re-check wound on leg Intake Note: pt presents with wound check left leg Patient Tobacco Use Status: Former Tobacco user Allergies Sulfa (Sulfonamide Antibiotics) (SULFA (SULFONAMIDE ANTIBIOTICS)) Allergy (Unknown, Verified 04/20/25 07:18) HIVES semaglutide (From Ozempic) Adverse Reaction (Mild, Verified 04/20/25 07:18) gi issues trulicty Adverse Reaction (Mild, Uncoded 04/11/25 18:50) gi issues Do you need a note to return to daycare/school/sports/work: Yes HPI HPI Comments History of Present Illness Details History of Present Illness - The patient is a 40-year-old male pres enting with wound healing progress and skin irritation due to adhesive bandage. - The patient was seen in the ER for hem atoma management following a slip and fall incident at work. - The hematoma was drained at [facility] emergency department on 04/11/2025. - The patient had the packing removed he re on 04/13/2025. - The wound was initially concerning, wi th visible depth, but has shown sign ificant improvement over time. - Daily dressing changes and showers hav e been part of the care routine, with noticeable daily improvement. - The patient reports the wound is no lo nger exuding and feels much better, with reduced pressure. - Skin irritation is noted around the ed ges of the bandage, attributed to adhesive pulling during movement. - The patient was advised to take a week off work for recovery. - She denies fever, chills, redness, war mth, discharge, or pus. Physical Exam General: Cooperative, healthy appearing, comfortable, no acute distress and well developed Respiratory: Normal respiratory effort and able to speak in complete sentences. Clear to auscultation bilaterally Cardiovascular: Regular rate and rhythm. Normal S1 and S2 Skin: No rashes or lesions noted, Open wound on the left upper medial thigh. No bleeding or discharge noted. Neuro: Sensation is intact Extremities: Normal to inspection. FROM of the left leg and knee. Ambulates with steady gait. Patient was informed and verbally consented to the use of an ambient scribe for clinic note documentation during this visit. [facility] Medical History H/O splenomegaly Fatty liver Obstructive sleep apnea syndrome Elevated alkaline phosphatase level GERD (gastroesophageal reflux disease) Lumbar disc disease Proteinuria Type 2 diabetes mellitus with other diabetic kidney complication Hyperlipidemia LDL goal <100 Obesity due to excess calories Surgical History History of removal of cyst (~10/23/24) Hx of removal of cyst Family History Father CVD (cardiovascular disease) Diabetes mellitus Mother Mental health disorder Sister Substance use disorder Sister No problems noted. Son No problems noted. Daughter No problems noted. Daughter No problems noted. Social History Household Members: Children Housing: House Alcohol intake: current Alcohol intake frequency: does not drink Patient Tobacco Use Status: Former Tobacco user e-Cigarette/Vaping Use: Never Used Second Hand Smoke Exposure: No Substance Use Type: Marijuana service: No Current occupational status: employed Current occupation: [employer] Current occupational exposures/hazards: No Cognitive needs: No Hearing needs: No Vision needs: No Review of Systems Const All systems reviewed & are unremarkable except as noted in HPI and below Physical Exam Vital Signs: Last Vital Signs Temp 98.2 F 04/20/25 07:17 Pulse 91 04/20/25 07:17 BP 162/94 H 04/20/25 07:17 Pulse Ox 98 04/20/25 07:17 Oxygen Delivery Method Room Air 04/20/25 07:17 BMI result Body Mass Index 39.4 Assessment & Plan Assessment & Plan (1) Visit for wound check: Code(s): Z51.89 - Encounter for other specified aftercare Plan Most likely healing wound Plan - Continue current wound care regimen with daily dressing changes and monitoring for signs of infection. - Consider using a different type of adhesive or bandage to reduce skin irritation. - will give him a work note - Follow-up visit recommended to reassess wound healing and skin condition. Coding Level of Care Code Est Pt Level 3 (16803) Diagnoses Visit for wound check Z51.89
== END 2025-04-20 07:34 | disposition home or self-care (01) ==
PROVIDERS: PCP Nurse Practitioner Family; Visit Provider Physician Assistant Medical
DX: Z51.89 Encounter for other specified aftercare (principal)

== ENCOUNTER → 2025-04-20 07:00 | Outpatient (BNVA) | payer OTHER, SELFPAY | PROVIDERS: PCP Nurse Practitioner Family; Visit Provider Physician Assistant Medical | DX: Z09 Encounter for follow-up examination after completed treatment for conditions other than malignant neoplasm (principal); Z87.2 Personal history of diseases of the skin and subcutaneous tissue | CPT/HCPCS: 99212 ==

== ENCOUNTER 2025-06-06 07:13 | Outpatient (REF) | payer OTHER, SELFPAY ==
--- OUTSIDE RECORDS SUMMARY | 2025-06-06 07:17 | XMS_ITS | Encounter Summary ---
Author Organization [facility] Address [address] [place] [address] Care Team Providers Care Regulatory Affairs Manager Name Role Phone Steven Simpson MD Primary Care Provider [phone] Encounter Details Date Type Department Care Team Description 03/04/2012 Release of Information Medical Records [address] [place] [id number] Abstract, Provider Social History Tobacco Use Types [...] on filedocumented in this encounter Care Teams Regulatory Affairs Manager Relationship Specialty Start Date End Date Steven Simpson MD [address] [place] [id number] PCP - General Internal Medicine 01/08/12 documented as of this encounter
--- OUTSIDE RECORDS SUMMARY | 2025-06-06 07:17 | XMS_ITS | Encounter Summary ---
Author Organization [facility] Address [address] [place] [address] Care Team Providers Care Magazine Writer Name Role Phone Steven Simpson MD Primary Care Provider [phone] Encounter Details Date Type Department Care Team Description 07/09/2012 Transfer Records Medical Records [address] [place] [address] Abstract, Provider Social History Tobacco Use Types [...] on filedocumented in this encounter Care Teams Magazine Writer Relationship Specialty Start Date End Date Steven Simpson MD [address] [place] [address] PCP - General Internal Medicine 01/08/12 documented as of this encounter
--- OUTSIDE RECORDS SUMMARY | 2025-06-06 07:17 | XMS_ITS | Encounter Summary ---
Author Organization [facility] Address [address] [place] [address] Care Team Providers Care Ballaster Name Role Phone Steven Simpson MD Primary Care Provider + [phone] Encounter Details Date Type Department Care Team Description 06/09/2014 Telephone [facility] [address] Sahil Celaya, ERINN Social History Tobacco Use [...] - 06/09/2014 9:17 AM EDT Please call [facility] and make sure the pt went the appt on 07/28/14 and document documented in this encounter Plan of Treatment Not on file documented as of this encounter Visit Diagnoses Not on filedocumented in this encounter Care Teams Ballaster Relationship Specialty Start Date End Date Steven Simpson MD [address] [place] [id number] PCP - General Internal Medicine 01/08/12 documented as of this encounter
[2025-06-06 08:29] LABS: Microalbum/Creatinine Ratio Ur 156.3 ug/mg cr (<30); Total Protein Urine Random 13 mg/dL (<12)
[2025-06-06 08:36] LABS: HBsAGNum1 0.27 S/CO (0.00-0.99); HIV Num 1 0.05 S/CO (0.00-0.99); Hepatitis B Surface Antigen Negative (Negative); ~HepC Num1 0.12 S/CO (0.00-0.79); ~Hepatitis C Antibody Nonreactive (Nonreactive)
[2025-06-11 08:58] LABS: Phospholipase A2 IgG ELISA <4 RU/mL; Phospholipase A2 IgG IFA NEGATIVE (NEGATIVE)
== END 2025-06-06 07:14 | disposition home or self-care (01) ==
LOC: HO.LAB 07:13
PROVIDERS: Absent Provider Nurse Practitioner Family; PCP Nurse Practitioner Family; Visit Provider Internal Medicine Critical Care Medicine
DX: Z11.4 Encounter for screening for human immunodeficiency virus [HIV] (principal); Z11.59 Encounter for screening for other viral diseases; E11.21 Type 2 diabetes mellitus with diabetic nephropathy
CPT/HCPCS: 36415; 82043; 82570; 83520; 84156; 86255; 86803; 87340; 87389

== ENCOUNTER 2025-06-25 14:44 | Outpatient (AMB) | payer OTHER, SELFPAY ==
--- NOTE | 2025-06-25 14:48 | HO.NEPHOV_ITS ---
Vital Signs 06/25/25 14:49 Height 5 ft 8 in Weight 262 lb BMI 39.8 BP 162/76 H Blood Pressure Location Lt brachial Position Sitting Pulse 93 Pulse Source Pulse Oximeter Pulse Oximetry (%) 98 Oxygen Delivery Method Room Air Intake Visit Reasons: 3 MO FU confirmed Puppet Master Required: No Accompanied by: Self / Same As Patient Allergies Sulfa (Sulfonamide Antibiotics) (SULFA (SULFONAMIDE ANTIBIOTICS)) Allergy (Unknown, Verified 06/25/25 14:51) HIVES semaglutide (From Ozempic) Adverse Reaction (Mild, Verified 06/25/25 14:51) gi issues trulicty Adverse Reaction (Mild, Uncoded 04/11/25 18:50) gi issues Medication List - Last Reconciled 06/25/25 by Claudio Rahman MD atorvastatin 40 mg PO DAILY blood sugar diagnostic TID testing, FREESTYLE LITE STRIPS blood-glucose meter (FreeStyle Lite Meter kit) As directed 3 x/day blood-glucose meter As directed empagliflozin (Jardiance) 25 mg PO DAILY insulin glargine (Lantus Solostar U-100 Insulin) 80 units (0.8 mL) subcut DAILY lancets As directed metformin 500 mg PO BID omeprazole 40 mg PO DAILY sildenafil 25 mg PO DAILY PRN tirzepatide 5 mg (0.5 mL) subcut QWEEK HPI Comments Details: 39-year-old male with past medical history of poorly controlled diabetes mellitus on insulin Lantus 80 units, metformin and Jardiance, lisinopril here for followup appointment for microalbuminuria. 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 Started on Manjauro since January currently weighing 262 lbs. Had an injury to his knee during work leading to hematoma. Has diabetes since 2010, on insulin since 2018. Poorly controlled, A1c 9.2, on insulin Lantus 80 units daily, metformin and Jardiance Checks blood pressures at home usually less than 130 mm Hg, on lisinopril 10 mg. [facility] Medical History H/O splenomegaly Fatty liver Obstructive sleep apnea syndrome Elevated alkaline phosphatase level GERD (gastroesophageal reflux disease) Lumbar disc disease Proteinuria Type 2 diabetes mellitus with other diabetic kidney complication Hyperlipidemia LDL goal <100 Obesity due to excess calories Surgical History History of removal of cyst (~10/23/24) Hx of removal of cyst Family History Father CVD (cardiovascular disease) Diabetes mellitus Mother Mental health disorder Sister Substance use disorder Sister No problems noted. Son No problems noted. Daughter No problems noted. Daughter No problems noted. Social History Household Members: Children Housing: House Alcohol intake: current Alcohol intake frequency: does not drink Patient Tobacco Use Status: Former Tobacco user e-Cigarette/Vaping Use: Never Used Second Hand Smoke Exposure: No Substance Use Type: Marijuana service: No Current occupational status: employed Current occupation: [employer] Current occupational exposures/hazards: No Cognitive needs: No Hearing needs: No Vision needs: No Review of Systems Const Details: Const : no body aches, no chills, no excessive sweating and no fatigue Eyes: no blurry vision and no change in vision ENT: no bleeding gums and no change in voice, no dizziness Card: no chest pain, no shortness of breath, no orthopnea, no PND Resp: no cough, no excessive phlegm production, no SOB GI: no abdominal pain and no nausea, no vomiting : no hematuria, no urinary frequency and no difficulty voiding Musc: no abnormal gait, no bone pain Neuro: no abnormal movements, no weakness, no dizziness, no abnormal gait and no behavioral changes Psych: no behavioral changes and no change in appetite Endo: no change in body appearance, no cold intolerance, no excessive sweating and no fatigue Physical Exam Vital Signs: Last Vital Signs Pulse 93 06/25/25 14:49 BP 162/76 H 06/25/25 14:49 Pulse Ox 98 06/25/25 14:49 Oxygen Delivery Method Room Air 06/25/25 14:49 BMI result Body Mass Index 39.8 General: acute distress, ill appearing and tired appearing Nutritional Appearance: well nourished and overweight Eyes: appearance normal, both eyes and all related structures; Alignment and Position: alignment normal and position normal Neck: No lymphadenopathy, no thyromegaly Resp: bilateral air entry equal, occasional added sounds present Cardio: Regular rate, regular rhythm; Heart sounds: S1 normal heart sound present and S2 normal heart sound present GI: soft, nontender, no guarding, no hepatosplenomegaly : bladder normal to inspection, bladder normal to palpation, no renal angle tenderness Skin: no rashes or lesions noted and elasticity normal Neuro: oriented to person, oriented to place, oriented to time and moves all extremities Results Reviewed Nephrology Results: Urine Creatinine 46.04 mg/dL 06/06/25 Assessment & Plan Assessment & Plan (1) Hyperlipidemia LDL goal <100: Code(s): E78.5 - Hyperlipidemia, unspecified Category: Medical (2) HTN (hypertension): Code(s): I10 - Essential (primary) hypertension Category: Medical (3) Diabetic kidney disease: Code(s): E11.21 - Type 2 diabetes mellitus with diabetic nephropathy Category: Medical Plan Microalbuminuria possibly secondary to diabetic kidney disease - creatinine 0.77 , GFR 60 in September 2024 - urine microalbumin creatinine ratio: 185.2 in 10/04, now 156.3lbs. - Urinalysis showed 1+ protein, no cells - Renal ultrasound showed 12.7 cm left kidney, 12 cm right kidney in September 11 025 - importance of diet, weight loss, adequate blood pressure control, stopped smoking we will explained to patient - negative hepatitis panel, HIV, PLA2R, hemoglobin 15 no concerns for myeloma are plasma cell dyscrasia - we will increase lisinopril to 40 mg, continue Jardiance. - Still on Wei, he was 253 lb in January, now weighing 262lb. Will refer him to medical weight management for assisting with weight loss. Hypertension: Blood pressure is on higher side We will increase lisinopril to 40 mg Orders: Orders Total Protein Urine Random 6 Months . - Type 2 diabetes mellitus with diabetic nephropathy, R80.9 - Proteinuria, unspecified Creatinine Urine 6 Months E11. - Type 2 diabetes mellitus with diabetic nephropathy, R80.9 - Proteinuria, unspecified Microalbumin, Random (w Creat) 6 Months . - Type 2 diabetes mellitus with diabetic nephropathy, R80.9 - Proteinuria, unspecified Basic Metabolic Panel 6 Months . - Type 2 diabetes mellitus with diabetic nephropathy, R80.9 - Proteinuria, unspecified UA and rflx microscopic 6 Months . - Type 2 diabetes mellitus with diabetic nephropathy, R80.9 - Proteinuria, unspecified Referrals Medical Weight Management Referral E11.21 - Type 2 diabetes mellitus with diabetic nephropathy, E66.09 - Other obesity due to excess calories, E78.5 - Hyperlipidemia, unspecified, I10 - Essential (primary) hypertension, Z68.31 - Body mass index [BMI] 31.0-31.9, adult Medications: New lisinopril 40 mg PO DAILY 90 tabs 3RF Coding Level of Care Code Est Pt Level 4 (82051) Diagnoses Hyperlipidemia LDL goal <100 E78.5 HTN (hypertension) I10 Diabetic kidney disease E11.21
[2025-06-25 14:49] VITALS: BP 162/76; PULSE 93; O2SAT 98; BMI 39.8
--- OUTSIDE RECORDS SUMMARY | 2025-06-25 18:38 | XMS_ITS | Data Portability ---
Author Organization [facility], [facility] Address [address] [place] [address] Care Team Providers Care Sports Anchor Name Role Phone [facility] Primary Care Provider Assessment No assessment [...] , rule out any fracture 2021 022 [facility], [address] [place] [address], [phone], 11:20:50 Medication Orders ibuprofen 800 mg tablet [address] [facility], [address] [place] [address], [id number], 09:04:37 Patient TargetsNo targets recorded. Patient Instructions Encounter Date Encounter Id Patient Instructions Last Modified By Organization Details Last Modified Time 08/26/2022 [id number] learning about rice (rest, ice, compression, and elevation) [email or web address] Not available 08/26/2022 09:04:37 Discussed RICE (rest, ice, compression, elevation) take ibuprofen 600 mg every 6 hours for inflammation. Elbow support given along with work restrictions to include no lifting over 10 pounds, no outstretched work. [email or web address] Not available 08/26/2022 09:02:59 Reason for Referral None Reported. Results Created Date Observation Date Name Description Value Unit Range Abnormal Flag Note LastModifiedBy Organization Detail LastModifiedTime 08/26/20 22 XR, elbow , 3 or more view No observ ation record ed. [email or web address] [id number] [place] [address], [phone], 08/26/2022 14:35:09 Result Notes None recorded. Problems Name Problem SNOMED Code Status Onset Date Resolution Date Notes Provider Name and Address Organization Details Recorded Time Diabetes mellitus 98378362 Active 2021 RODRIGO NELDA null, [place] - [facility] 08:36:07 Hypertensive disorder 72066775 Active 2021 RODRIGO NELDA null, [place] - [facility] 2 08:36:16 Gastroesophage al reflux disease 373873222 Active 2021 RODRIGO NELDA null, [place] - [facility] 2 08:36:30 Problem Notes None recorded. Medical Equipment None Reported. Allergies Allergen ID Allergen Name Allergen Category Reaction Reaction Severity Criticality Documentation Date Start Date Code Code System Note Provider Name and Address Organization Details Recorded Time 07283 Substance with sulfonami de structure and antibacte rial mechanism of action (substanc e) medicatio n hives Not available Not available 08/26/2022 05208 8003 SNOMED RODRIGO NELDA null, PA - [facility] 2 08:34:36 49966 Trulicity medicatio n other Not available Not available 08/26/2022 41999 96 RxNorm RODRIGO NELDA null, PA - [...] Heart rate Respiratory rate Body temperature Systolic And Diastolic Provider Name and Address Organization Details Last Updated DateTime 2 175.26 cm 35.4 kg/m2 331402. 17 g 10 96 % 96 % 97 /min 16 /min 98.2 [degF] 147/91 mm[Hg] RODRIGO HAZELTEAU PA - [facility] 2 08:38:08 Social History Question Answer Notes LastModified by [employer] Details LastModified Time Tobacco Smoking Status Never Smoker RODRIGO LUTZ kenisha PA - [facility] 08/26/2022 08:37:10 Have You Recently Traveled Abroad? No Information not available 08/26/2022 Sex: Unknown Functional Status Question Answer Note LastModified by [employer] Details LastModified Time Do you use any [...] PF 08/26/2022 completed Qasim Ramirez NP [address] [place], [address], [place] [facility] 08/26/2022 14:35:44 Past Encounters Encounter ID Performer Location Encounter Start Date Encounter Closed Date Diagnosis/Indication Diagnosis SNOMED-CT Code Diagnosis ICD10 Code Diagnosis IMO Codes Diagnosis Note [id number] [facility] [address] [address] 10/05/2020 18:43:45 10/05/2020 19:34:23 [id number] [facility] [address] [place] [address] 11/10/2015 19:30:10 11/10/2015 20:42:47 [id number] Qasim Ramirez NP [address] [address] [place] [address] 08/26/2022 08:06:32 08/26/2022 09:10:50 Tendinitis of right elbow [id number] M67.823 Sprain of right elbow. will screen for any fracture. Ricardo wrap applied for comfort . take medication as prescribed . follow up as needed after X-ray right elbow. Administra tion of influenza vaccine [id number] Z23 Health Concerns Section Related Observation LastModified by Organization Detai ls LastModified Time None Recorded Concern Status LastModified by Organization Details LastModified Time None Recorded Advance Directives Directive None Recorded Payers Insurance Date Sequence Insurance Name Policy Number Policy Nov[place] Covered Member ID Nov[place] Member ID Guarantor Name 08/26/2022 1 [facility] Alexis Faria-Hans ratt [id number] Alexis Rudd Notes Date Note Type Note Provider Name and Address Organization Details Recorded Time 08/26/2022 text/html Forearm / WristReported by Patientpain right elbow x 2 days. went to grain picker heavy box and since then pain upon movement.have full range of Motion. Qsaim Ramirez NP [address] [place], [address], [place] - [facility] 08/26/2022 14:35:57
== END 2025-06-25 15:14 | disposition home or self-care (01) ==
LOC: HO.HKA 14:45
PROVIDERS: PCP Nurse Practitioner Family; Visit Provider Internal Medicine Critical Care Medicine
DX: E78.5 Hyperlipidemia, unspecified (principal); I10 Essential (primary) hypertension; E11.21 Type 2 diabetes mellitus with diabetic nephropathy
CPT/HCPCS: 99214

== ENCOUNTER → 2025-06-25 14:44 | Outpatient (BNVA) | payer OTHER, SELFPAY | PROVIDERS: PCP Nurse Practitioner Family; Visit Provider Internal Medicine Critical Care Medicine | DX: R80.9 Proteinuria, unspecified (principal); E11.21 Type 2 diabetes mellitus with diabetic nephropathy; E11.29 Type 2 diabetes mellitus with other diabetic kidney complication; I10 Essential (primary) hypertension; E78.5 Hyperlipidemia, unspecified; E66.09 Other obesity due to excess calories; Z68.31 Body mass index [BMI] 31.0-31.9, adult; Z79.4 Long term (current) use of insulin | CPT/HCPCS: 99212 ==